=== PATIENT | female | born 1965 | race Caucasian/White ===

== ENCOUNTER 2019-08-08 15:53 | Outpatient (CLI) | payer MEDICARE, SELFPAY ==
--- NOTE | ~2019-08-08 | MM_ITS ---
EXAMINATION: MM screening larry BI w jakob HISTORY: Screening mammogram TECHNIQUE: Craniocaudal and mediolateral oblique 3-D tomosynthesis images were obtained and synthetic 2-D images were generated. CAD analysis was submitted and interpreted. COMPARISON: 06/15/2018 diagnostic right digital mammogram 06/03/2018 bilateral digital screening mammogram 06/04/2017 diagnostic right digital mammogram and limited right breast ultrasound 05/11/2017, 04/18/2016 bilateral digital screening mammogram examinations BREAST PARENCHYMAL COMPOSITION: There are scattered areas of fibroglandular density. FINDINGS: Stable circumscribed benign-appearing intramammary lymph node, upper outer left breast. The re is no evidence of suspicious mass, calcification, or architectural distortion to suggest malignanc y in either breast. There has been no suspicious interval change. IMPRESSION: 1. No mammographic evidence of malignancy. 2. Recommend routine screening mammography in one year. BI-RADS Category 2: Benign finding(s). Reviewed, dictated and finalized at location A.
== END 2019-08-08 15:54 | disposition home or self-care (01) ==
PROVIDERS: PCP Internal Medicine; Visit Provider Advanced Practice Midwife
DX: Z12.31 Encounter for screening mammogram for malignant neoplasm of breast (principal)
CPT/HCPCS: 77063; 77067

== ENCOUNTER 2019-08-15 14:06 | Outpatient (CLI) | payer MEDICARE, SELFPAY ==
--- NOTE | ~2019-08-15 | DEXA_ITS ---
BMD(1) Young-Adult(2) Age-Matched(3) Region (g/cm2) T-score Z-score WHO Classification L1 1.003 -1.1 -0.7 Osteopenia L2 1.095 -0.9 -0.5 Normal L3 1.129 -0.7 -0.3 Normal L4 1.157 -0.5 -0.1 Normal L1-L4 1.103 -0.7 -0.3 Normal Trend: L1-L4 Change vs Change vs Measured Age BMD(1) Baseline Previous Date (years) (g/cm2) (%) (%) 08/15/2019 [age] 1.103 baseline - 1 - Statistically 68% of repeat scans fall within 1SD (+- 0.010 g/cm2 for AP Spine L1-L4) 2 - [place] (Combined NHANES (ages 20-30) / Duxter (ages 20-40)) AP Spine Reference Population (v112) 3 - Matched for Age, Weight (females 25-100 kg), Ethnic 11 - World Health Organization - Definition of Osteoporosis and Osteopenia for Women: Normal = T-score at or above -1.0 SD; Osteopenia = T-score between -1.0 and -2.5 SD; Osteoporosis = T-score at or below -2.5 SD; (WHO definitions only apply when a young healthy Women reference database is used to determine T-scores.) Printed: 08/15/2019 2:46:49 PM (13.60)76:3.00:50.00:12.0 0.00:10.56 0.60x1.05 20.8:%Fat=32.9% 0.00:0.00 0.00:0.00 Filename: [email or web address] Scan Mode: Standard;OneScan 37.0 HearMeOut [id number] BMD(1) Young-Adult(2,7) Age-Matched(3) Region (g/cm2) T-score Z-score WHO Classification Neck Left 0.816 -1.6 -0.8 Osteopenia Right 0.803 -1.7 -0.9 Osteopenia Mean 0.809 -1.6 -0.9 Osteopenia Difference 0.013 0.1 0.1 - Total Left 0.887 -1.0 -0.6 Normal Right 0.849 -1.3 -0.9 Osteopenia Mean 0.868 -1.1 -0.7 Osteopenia Difference 0.038 0.3 0.3 - Hip Drew Length Comparison (mm) (Right = 113.5 mm) (Mean = 110.0 mm) (Left = 116.3 mm) Trend: Total Mean Change vs Change vs Measured Age BMD(1) Baseline Previous Date (years) (g/cm2) (%) (%) 08/15/2019 54.2 0.868 baseline - 1 - Statistically 68% of repeat scans fall within 1SD (+- 0.010 g/cm2 for DualFemur Total) 2 - [place] (Combined NHANES (ages 20-30) / [place]uxter (ages 20-40)) Femur Reference Population (v112) 3 - Matched for Age, Weight (females 25-100 kg), Ethnic 7 - DualFemur Total T-score difference is 0.3. Asymmetry is None. 11 - World Health Organization - Definition of Osteoporosis and Osteopenia for Women: Normal = T-score at or above -1.0 SD; Osteopenia = T-score between -1.0 and -2.5 SD; Osteoporosis = T-score at or below -2.5 SD; (WHO definitions only apply when a young healthy Women reference database is used to determine T-scores.) Printed: 08/15/2019 2:46:49 PM (13.60); Filename: [email or web address].dfx; Right Femur; 17.9:%Fat=33.7%; Neck Angle (deg)= 48; Scan Mode: Standard 37.0 uGy; Left Femur; 18.6:%Fat=35.4%; Neck Angle (deg)= 55; Scan Mode: Standard 37.0 uGy Ads-Fi [id number] Dear Melba Garcia, Your patient Anuja Lowry completed a BMD test on 08/15/2019 using the [employer] DXA System (analysis version: 13.60) manufactured by [employer]. The following summarizes the results of our evaluation. PATIENT BIOGRAPHICAL: Name: Anuja Lowry Date: 1965 Height: 68.0 in. Gender: Female
== END 2019-08-15 14:07 | disposition home or self-care (01) ==
LOC: CHSIMG 14:08
PROVIDERS: PCP Internal Medicine; Visit Provider Internal Medicine
DX: M81.0 Age-related osteoporosis without current pathological fracture (principal)
CPT/HCPCS: 77080

== ENCOUNTER → 2019-08-23 11:58 | Outpatient (CLI) | payer MEDICARE, OTHER, SELFPAY ==
--- NOTE | ~2019-08-23 | MR_ITS ---
EXAMINATION: MR brain/brain stem wo/w con DATE: 08/23/2019 13:45 INDICATION: Multiple sclerosis. TECHNIQUE: Magnetic resonance imaging (MRI) of the brain and brainstem was performed without and with 15 mL MultiHance intravenous contrast. Sequences included sagittal and axial T1-weighted FLAIR, axia l T1-weighted FSE, axial diffusion-weighted FS EPI, sagittal T2-weighted FLAIR, axial T2*-weighted GR E, axial T2-weighted FLAIR Propeller, and axial T2-weighted Propeller. Postcontrast sequences include d axial, coronal, and sagittal T1-weighted FSE. Apparent diffusion coefficient (ADC) maps were create d. COMPARISON: Brain MRI 07/23/2011 FINDINGS: There are approximately 15-20 total lesions of increased T2-weighted signal intensity in th e brain. Of these lesions, approximately 2 are periventricular, 2 are juxtacortical, and none are inf ratentorial. None of the lesions enhance. There is no acute ischemic infarct or intracranial hemorrha ge. The ventricles are normal in size. The paranasal sinuses are clear. The orbits are normal. The ma stoid air cells are normal. IMPRESSION: 1. Worsened mild cerebral white matter disease, which may be chronic small vessel ischemic disease an d/or multiple sclerosis. Reviewed, dictated and finalized at location A. IMPRESSION: 1. Worsened mild cerebral white matter disease, which may be chronic small vess el ischemic disease and/or multiple sclerosis.
--- NOTE | ~2019-08-23 | MR_ITS ---
EXAMINATION: MR cervical spine wo/w con DATE: 08/23/2019 13:34 INDICATION: Multiple sclerosis. TECHNIQUE: Magnetic resonance imaging (MRI) of the cervical spine was performed without with 15 mL Mu ltiHance intravenous contrast. Sequences included sagittal and axial T2-weighted FSE, sagittal STIR F SE, and sagittal and axial T1-weighted FSE. Postcontrast sequences included sagittal and axial T1-chas ghted FS FSE. COMPARISON: None FINDINGS: Bone alignment is normal. Vertebral body heights are normal. There is mildly decreased disc height at C5-C6. The spinal cord signal intensity is normal. The following disc levels are specifica lly discussed: C2-C3: The disc does not extend beyond the endplate margin. There is no uncovertebral joint osteoarth ritis. There is mild bilateral facet joint osteoarthritis. There is no neural foraminal stenosis. The re is no central canal stenosis. C3-C4: The disc does not extend beyond the endplate margin. There is mild right uncovertebral joint o steoarthritis. There is mild right facet joint osteoarthritis. There is mild right neural foraminal s tenosis. There is no central canal stenosis. C4-C5: The disc does not extend beyond the endplate margin. There is no uncovertebral joint osteoarth ritis. There is mild bilateral facet joint osteoarthritis. There is no neural foraminal stenosis. The re is no central canal stenosis. C5-C6: The disc is bulging. There is mild left uncovertebral joint osteoarthritis. There is no facet joint osteoarthritis. There is mild left neural foraminal stenosis. There is mild central canal steno sis. C6-C7: The disc is bulging. There is mild bilateral uncovertebral joint osteoarthritis. There is mild bilateral facet joint osteoarthritis. There is mild bilateral neural foraminal stenosis. There is no central canal stenosis. C7-T1: The disc does not extend beyond the endplate margin. There is no uncovertebral joint osteoarth ritis. There is mild bilateral facet joint osteoarthritis. There is no neural foraminal stenosis. The re is no central canal stenosis. IMPRESSION: 1. Normal spinal cord. 2. Mild cervical spondylosis. Reviewed, dictated and finalized at location A.
[2019-08-23 12:40] LABS: Estimated Glomerular Filt Rate > 60
== END ==
DX: G35 Multiple sclerosis (principal); M47.812 Spondylosis without myelopathy or radiculopathy, cervical region; R90.82 White matter disease, unspecified
CPT/HCPCS: 36415; 70553; 72156; A9577

== ENCOUNTER 2020-06-16 08:15 | Outpatient (CLI) | payer MEDICARE, SELFPAY | END 2020-06-16 08:16 | disposition home or self-care (01) | LOC: CHSCOVIDVC 08:16 | PROVIDERS: PCP Internal Medicine | DX: Z23 Encounter for immunization (principal) | CPT/HCPCS: 0011A; 91301 ==

== ENCOUNTER 2020-07-14 08:15 | Outpatient (CLI) | payer MEDICARE, SELFPAY | END 2020-07-14 08:16 | disposition home or self-care (01) | LOC: CHSCOVIDVC 08:15 | PROVIDERS: PCP Internal Medicine | DX: Z23 Encounter for immunization (principal) | CPT/HCPCS: 0012A; 91301 ==

== ENCOUNTER 2020-11-13 10:13 | Outpatient (CLI) | payer MEDICARE, SELFPAY ==
--- NOTE | ~2020-11-13 | CT_ITS ---
EXAMINATION: CT chest abdomen pelvis w con EXAM DATE: 11/13/2020 10:43 INDICATION: Weight loss, diarrhea, chest pain. Intermittent chest tightness. TECHNIQUE: Spiral CT of the chest, abdomen and pelvis was performed following intravenous injection o f 100 mL Omnipaque 350. Axial, coronal and sagittal images chest, abdomen and pelvis were reviewed. Coronal maximum intensity pixel images of chest reviewed. The dose-length product (DLP) for this ex amination was 416.54 mGy-cm. The exposure was tailored according to patient size (auto mA exposure c ontrol), and iterative reconstruction (ASIR) was used as additional dose reduction technique. There is no prior study for comparison. FINDINGS: CHEST: Dependent subsegmental atelectasis. There are no pleural or pericardial effusions. Tracheo bronchial tree is patent. There is no mediastinal, hilar or axillary lymphadenopathy. There is no pneumothorax. Heart normal in size. No evidence of coronary arterial calcification. ABDOMEN PELVIS: The liver, spleen, adrenal glands and pancreas are unremarkable. Gallbladder is unre markable. No biliary obstruction. Portal and splenic veins are patent. Kidneys enhance symmetrical ly. There is no hydronephrosis. The uterus is not identified and has likely been surgically resect ed. The bladder is unremarkable. There is no retroperitoneal or pelvic lymphadenopathy. Small umb ilical fat-containing hernia. The appendix is normal. The stomach and small bowel are unremarkable. There is expected amount of c olonic stool. No free intraperitoneal gas. There are no osteoblastic or osteolytic lesions identi fied. Mild lumbar dextroscoliosis. IMPRESSION: 1. Bilateral subsegmental atelectasis. 2. Small umbilical fat-containing hernia. Reviewed, dictated and finalized at location A.
== END 2020-11-13 10:14 | disposition home or self-care (01) ==
LOC: CHSIMG 10:15
PROVIDERS: PCP Internal Medicine; Visit Provider Internal Medicine
DX: R63.4 Abnormal weight loss (principal); R07.9 Chest pain, unspecified; R19.7 Diarrhea, unspecified
CPT/HCPCS: 71260; 74177; Q9967

== ENCOUNTER 2020-11-24 08:27 | Outpatient (CLI) | payer MEDICARE, SELFPAY ==
--- NOTE | ~2020-11-24 | MR_ITS ---
EXAMINATION: MR cervical spine wo/w con EXAM DATE: 11/24/2020 10:25 INDICATION: Multiple sclerosis. TECHNIQUE: Multi-sequential, multiplanar MR images of the cervical spine were obtained without contra st. Axial T2, axial T2 MERGE sequence. Sagittal T1, T2, T2 fat saturation images also obtained. Axi al T1 weighted sequence. Patient was then injected with 12 mL Multihance intravenous contrast and re imaged. Postcontrast axial and sagittal T1-weighted fat saturation sequences were obtained. Compar sandra is made to prior examination from 08/23/2019. FINDINGS: The vertebral bodies are aligned in the AP dimension. Vertebral body and disc heights are well-maintained. The spinal cord signal intensity and intrinsic morphology is normal. Cervicomedullar y junction is normal in appearance. There are no suspicious marrow signal abnormalities. Paraspinal s oft tissue is unremarkable. There are no areas of abnormal enhancement on the post contrast images. Level by level evaluation: C2-C3: Disc does not extend beyond the endplate margin. Uncovertebral joint arthropathy: None. Facet joint arthropathy: Mild. Neural foraminal stenosis: No stenosis. Central canal stenosis: No stenosis. C3-C4: Disc does not extend beyond the endplate margin. Uncovertebral joint arthropathy: Mild bilateral. Facet joint arthropathy: Mild to moderate bilateral. Neural foraminal stenosis: Mild right. Central canal stenosis: No stenosis. C4-C5: Disc does not extend beyond the endplate margin. Uncovertebral joint arthropathy: None. Facet joint arthropathy: Mild to moderate bilateral. Neural foraminal stenosis: No stenosis. Central canal stenosis: No stenosis. C5-C6: There is a mild diffuse disc bulge. Uncovertebral joint arthropathy: Moderate left, mild to moderate right. Facet joint arthropathy: Mild to moderate bilateral. Neural foraminal stenosis: Mild to moderate left, mild right. Central canal stenosis: Mild. C6-C7: There is a mild diffuse disc bulge. Uncovertebral joint arthropathy: Moderate right, mild to moderate left. Facet joint arthropathy: Mild. Neural foraminal stenosis: Moderate left, mild to moderate right. Central canal stenosis: Mild. C7-T1: Disc does not extend beyond the endplate margin. Uncovertebral joint arthropathy: Mild bilateral. Facet joint arthropathy: Mild bilateral. Neural foraminal stenosis: No stenosis. Central canal stenosis: No stenosis. IMPRESSION: 1. Mild to moderate cervical spondylosis. 2. Normal cervical spinal cord signal. Reviewed, dictated and finalized at location A.
--- NOTE | ~2020-11-24 | MR_ITS ---
EXAMINATION: MR thoracic spine wo/w con EXAM DATE: 11/24/2020 10:24 INDICATION: Multiple sclerosis. TECHNIQUE: Multi-sequential, multiplanar MR images of the thoracic spine were obtained without contra st. Sagittal T1, T2, T2 fat saturation, axial T2 weighted images reviewed. Axial T1 weighted sequenc e. Patient was then injected with 12 mL Multihance intravenous contrast and reimaged. Postcontrast axial and sagittal T1-weighted fat saturation sequences were obtained. There is no prior study for c omparison. FINDINGS: The spinal cord signal intensity and intrinsic morphology is normal. The vertebral bodies a re aligned in the AP dimension. Vertebral body and disc heights are well-maintained. There are scatte red focal signal abnormalities consistent with hemangiomata, otherwise without focal suspicious marro w signal abnormalities. Mild thoracic scoliosis. Paraspinal soft tissue is unremarkable. Mild thoraci c facet arthropathy. IMPRESSION: 1. Normal thoracic cord signal. 2. Mild scoliosis and facet arthropathy. Reviewed, dictated and finalized at location A.
--- NOTE | ~2020-11-24 | MR_ITS ---
EXAMINATION: MR brain/brain stem wo/w con EXAM DATE: 11/24/2020 10:25 INDICATION: Multiple sclerosis. TECHNIQUE: Magnetic resonance imaging (MRI) of the brain/brain stem obtained without contrast. Sagit yaya T1, axial diffusion, gradient echo (T2*), T1, T2, FLAIR sequences obtained. Patient was then inj ected with 12 cc intravenous Multihance contrast. Axial and coronal postcontrast T1 weighted sequence s obtained. Comparison is made to prior examination from 08/23/2019. FINDINGS: Again there are approximately 20 scattered periventricular and subcortical T2/FLAIR hyperin tensities, a non-specific finding with differential diagnosis including chronic small vessel ischemic disease (especially if the patient has cardiovascular risk factors), migraine headaches, demyelinati ng disease such as multiple sclerosis or acute disseminated encephalomyelitis (ADEM), vasculopathy, l yme's disease or reactive astrocytosis (gliosis) secondary to nonspecific etiology. These appear slig htly more pronounced than on prior study but not increased in number. No infratentorial signal abnorm alities. There are no areas of restricted diffusion to suggest acute infarction. There is no acute hemorrhage seen on the T2*, a hemosiderin sensitive sequence. No intraparenchymal brain mass. The ventricles a re normal in size. There are no extra-axial collections. Flow voids are seen in the cerebral arteri es on the T2-weighted sequences consistent with their expected patency. The orbits are unremarkable. Soft tissue is unremarkable. IMPRESSION: Scattered nonspecific white matter signal abnormalities, could be microangiopathy and/or multiple sclerosis, slightly more conspicuous but no change in number. No acute findings. Reviewed, dictated and finalized at location A. IMPRESSION: Scattered nonspecific white matter signal abnormalities, could be m icroangiopathy and/or multiple sclerosis, slightly more conspicuous but no mcfarland ge in number. No acute findings.
== END 2020-11-24 08:28 | disposition home or self-care (01) ==
LOC: CHSIMG 08:29
PROVIDERS: PCP Internal Medicine; Visit Provider Psychiatry & Neurology Neurology
DX: G35 Multiple sclerosis (principal)
CPT/HCPCS: 70553; 72156; 72157; A9577

== ENCOUNTER 2021-03-14 00:21 | Day surgery (SDC) | payer MEDICARE, SELFPAY ==
[2021-03-06 12:54] VITALS: BMI 25.4
[2021-03-14 06:44] VITALS: BP 108/71; PULSE 100; RESP 18; TEMP 36.4; O2SAT 100
[2021-03-14] MEDS: LACTATED RINGERS 1,000 ML 150 ML IV CONT (06:56)
--- NOTE | 2021-03-14 07:45 | WPDANESEPPF ---
Anes - Initial Pre Proc Eval Procedure: Operation Date: 03/14/21 08:00 Proposed Procedures p Esophagogastroduodenoscopy & Colonoscopy - Titus Arellano DO Date/Time: 03/14/21 07:45 Surgeon: Titus Arellano DO Pre Op Diagnosis: Positive FIT test Patient Data Age: 55 Gender: F Height: 1.73 m Weight: 64 kg Last Vital Signs Temp 97.6 F 03/14/21 06:44 Pulse 100 03/14/21 06:44 Resp 18 03/14/21 06:44 BP 108/71 03/14/21 06:44 Pulse Ox 100 03/14/21 06:44 Allergies Allergy/AdvReac Type Severity Reaction Status Date / Time erythromycin base Allergy Severe NAUSEA AND Verified 03/14/21 06:43 VOMITING Penicillins Allergy Severe RASH AND Verified 03/14/21 06:43 SWELLING Sulfa (Sulfonamide Allergy Swelling Verified 03/14/21 06:43 Antibiotics) Home Medications Medication Instructions Recorded Confirmed Type buspirone 15 mg PO BID 03/06/21 03/06/21 History diphenoxylate-atropine [Lomotil] 1 tablet PO TID PRN 03/06/21 03/06/21 History duloxetine 60 mg PO DAILY 03/06/21 03/06/21 History siponimod [Mayzent] 1 mg PO DAILY 03/06/21 03/06/21 History topiramate 100 mg PO DAILY 03/06/21 03/06/21 History Patient hx anesthesia problems: none Family hx anesthesia problems: none Results Review: All pre-operative results and documents have been reviewed as part of the pre-operative evaluation. [facility] Social History Social History Smoking packs per day: 1 Smoking cigarettes per day: 20.0 Smoking status: Current every day smoker Tobacco type: cigarettes Alcohol intake: never Substance use: current Substance use type: marijuana Other substance usage details: Mary russell nightly Living arrangements: with family Spiritual care concerns: No Anes - Eval Final PreProcedure Day of Procedure 03/14/21 07:45 Patient weight: normal Heart: regular rate and rhythm Lungs: clear to auscultation Airway: Mallampati scale class II Neurological: alert and oriented Last oral intake: >/= 8 hours ASA classification: III Emergent: no Anesthetic plan: proceed Anesthesia type and monitoring: general GIVS and standard monitoring Results Review: All pre-operative results and documents have been reviewed as part of the pre-operative evaluation. Informed Consent: The patient's anesthetic plan and its attendant risks and benefits were discussed with the patient/family/POA. Questions were solicited and answers provided to the satisfaction of the patient/family/POA.
--- NOTE | 2021-03-14 07:51 | PM.IMHP ---
H&P: HPI History of Present Illness Date/Time: 03/14/21 07:51 Chief Complaint: occult positive stool Narrative: this is a 55-year-old woman who presents for EGD and colonoscopy. She recently had an at home test which showed evidence of blood in her stool. She denies being able to identify hematochezia or melena. She denies any significant heartburn or acid reflux. She had a colonoscopy 9 years ago which she states was normal. She denies any family history of colon cancer. Review of Systems Review of Systems: All systems reviewed & are unremarkable except as noted in HPI and below Constitutional: Constitutional: Denies chills, Denies fever(s), Denies headache(s) and Denies weight loss Eyes: Eyes: Denies change in vision ENT: Denies dizziness, Denies headache(s), Denies neck mass and Denies throat swelling Cardiovascular: Cardiovascular: Denies chest pain, Denies lightheadedness and Denies dyspnea Respiratory: Respiratory: Denies cough, Denies dyspnea and Denies wheezing Gastrointestinal: Gastrointestinal: Denies abdominal pain, Denies change in bowel habits, Denies nausea and Denies vomiting Genitourinary: Genitourinary: Denies hematuria and Denies dysuria Musculoskeletal: Musculoskeletal: Reports as per HPI Integumentary/Breasts: Skin/Breast: Reports as per HPI Neurologic: Denies dizziness and Denies headache(s) Allergic/Immunologic: Allergic/Immunologic: Denies throat swelling and Denies wheezing PMFSH Social History Social History Smoking packs per day: 1 Smoking cigarettes per day: 20.0 Smoking status: Current every day smoker Tobacco type: cigarettes Alcohol intake: never Substance use: current Substance use type: marijuana Other substance usage details: Brandycammie russell nightly Living arrangements: with family Spiritual care concerns: No Meds Home Medications and Allergies Home Medications Medication Instructions Recorded Confirmed Type buspirone 15 mg PO BID 03/06/21 03/06/21 History diphenoxylate-atropine [Lomotil] 1 tablet PO TID PRN 03/06/21 03/06/21 History duloxetine 60 mg PO DAILY 03/06/21 03/06/21 History siponimod [Mayzent] 1 mg PO DAILY 03/06/21 03/06/21 History topiramate 100 mg PO DAILY 03/06/21 03/06/21 History Allergies Allergy/AdvReac Type Severity Reaction Status Date / Time erythromycin base Allergy Severe NAUSEA AND Verified 03/14/21 06:43 VOMITING Penicillins Allergy Severe RASH AND Verified 03/14/21 06:43 SWELLING Sulfa (Sulfonamide Allergy Swelling Verified 03/14/21 06:43 Antibiotics) Vital Signs Vital Signs - 24 hr 03/14/21 06:44 Temperature 36.4 C Pulse Rate 100 Respiratory Rate 18 Blood Pressure 108/71 Pulse Oximetry 100 Exam Const: General: no acute distress and alert Orientation/consciousness: patient oriented x3 HENMT: Head: normocephalic and atraumatic Ears: hearing grossly normal bilaterally General nose exam: Normal nares present Mouth: Yes Normal oral and palatal mucosa present Eyes: Periorbital: periorbital findings normal Sclera: sclerae normal EOM: EOMs intact bilaterally Neck: Neck: normal visual inspection, no lymphadenopathy and trachea midline Chest: Chest palpation & inspection: normal inspection of the chest Resp: Effort & Inspection: normal respiratory effort Auscultation: clear to auscultation bilaterally Cardio: Jugular venous distension: no JVD Rate: regular rate Rhythm: regular rhythm Heart sounds: S1 normal heart sound present and S2 normal heart sound present Peripheral pulses: Peripheral pulses 2+ throughout GI: Inspection: normal to inspection GI Palp: Yes Soft to palpation, No Tenderness to palpation present (GI), No Guarding due to palpation present (GI) and No Rebound tenderness present Percussion: Yes normal to percussion Auscultation: normal bowel sounds : General: Yes no CVA tenderness Back/Spine/Pelvis: Back: no CVA tenderness Neuro: General: patient orient
[2021-03-14] MEDS: BENZOCAINE (*SP) 60 ML SPRAY CAN (HURRICAINE) 1 SPRAY MUCOUS MEM (08:03)
--- NOTE | 2021-03-14 08:45 | SUR.OPER ---
EGD start 804 end 810, COLON start 818 end 841.
[2021-03-14 08:48] VITALS: BP 95/61; PULSE 71; RESP 19; O2SAT 99
[2021-03-14 08:58] VITALS: BP 124/61; PULSE 72; RESP 18; O2SAT 99
[2021-03-14 09:08] VITALS: BP 112/66; PULSE 69; RESP 15; O2SAT 100
== END 2021-03-14 09:17 | disposition home or self-care (01) ==
PROVIDERS: PCP Internal Medicine; Visit Provider Surgery
PROC: 0DJ08ZZ Inspection of Upper Intestinal Tract, Via Natural or Artificial Opening Endoscopic (ICD-10-PCS; CPT 43235; principal; 2021-03-14 08:00)
DX: K25.3 Acute gastric ulcer without hemorrhage or perforation (principal); R19.5 Other fecal abnormalities; F17.210 Nicotine dependence, cigarettes, uncomplicated; F12.90 Cannabis use, unspecified, uncomplicated
CPT/HCPCS: 45378; 43239; 88305; J2704; J7120

== ENCOUNTER → 2021-05-17 08:51 | Outpatient (CLI) | payer MEDICARE, SELFPAY ==
--- NOTE | ~2021-05-17 | MMUS_ITS ---
EXAMINATION: MM diagnostic larry BI w jakob, US breast LT complete HISTORY: Diffuse left breast pain TECHNIQUE: Craniocaudal, mediolateral, and mediolateral oblique 3-D tomosynthesis images of the breas ts were performed and synthetic 2-D images were generated. CAD analysis was submitted and interpreted . High resolution complete left breast ultrasound was performed including all four quadrants and the subareolar breast. COMPARISON: 08/08/2019, 06/15/2018, 06/03/2018 BREAST PARENCHYMAL COMPOSITION: There are scattered areas of fibroglandular density. FINDINGS: MAMMOGRAPHIC FINDINGS: There is a stable 4 mm mass at the 3:00 location of the left breast, consistent with a benign finding . There is no suspicious mass, calcification, or architectural distortion in either breast to sugges t malignancy. There has been no suspicious interval change. ULTRASOUND: There is no evidence of focal abnormal solid or cystic mass in the vicinity of the patient's left tia ast pain. There is a 6 mm cyst at the 3:00 location and a 4 mm cyst near the nipple. IMPRESSION: 1. No specific mammographic or sonographic correlate is identified for the patient's reported left br east pain Further evaluation at this time should be based on clinical assessment. Continued follow-up physical examination is recommended. 2. Recommend routine screening mammography in one year. BI-RADS Category 2: Benign finding(s). Reviewed, dictated and finalized at location A. IMPRESSION: 1. No specific mammographic or sonographic correlate is identified for the belkis ent's reported left breast pain Further evaluation at this time should be based on clinical assessment. Continued follow-up physical examination is recommende d. 2. Recommend routine screening mammography in one year. BI-RADS Category 2: Benign finding(s).
== END ==
PROVIDERS: PCP Internal Medicine; Visit Provider Nurse Practitioner Obstetrics & Gynecology
DX: N64.4 Mastodynia (principal); Z80.3 Family history of malignant neoplasm of breast
CPT/HCPCS: 76641; 77062; 77066; G0279

== ENCOUNTER 2021-09-03 11:26 | Outpatient (CLI) | payer MEDICARE, SELFPAY ==
[2021-09-03 12:17] LABS: SARS-CoV-2 RNA PCR Positive (Negative)
== END 2021-09-03 11:27 | disposition home or self-care (01) ==
LOC: CHSLAB 11:30
PROVIDERS: PCP Internal Medicine; Visit Provider Nurse Practitioner Family
DX: U07.1 COVID-19 (principal)
CPT/HCPCS: C9803; U0003; U0005

== ENCOUNTER 2021-09-04 09:01 | Outpatient (CLI) | payer MEDICARE, SELFPAY ==
[2021-09-04] MEDS: FAMOTIDINE 20 MG TABLET PO (09:29)
[2021-09-04] MEDS: BEBTELOVIMAB 175 MG/2 ML VIAL IV PUSH (09:29)
[2021-09-04] MEDS: diphenhydrAMINE HCl CAP 25 MG CAPSULE PO (09:29)
[2021-09-04] MEDS: ACETAMINOPHEN 325 MG TABLET 650 MG PO (09:29)
--- NOTE | 2021-09-04 09:36 | PC.NURSE ---
Pt to room 211 amb. A&Ox3. Has no questions or complaints. Oriented to room. Call de la cruz in reach. Plan of care explained. Consent read and signed. Reminded to call with needs.
--- NOTE | 2021-09-04 10:00 | PC.NURSE ---
Pt tolerated medication well. Has no questions or complaints. Discharge to home amb per self.
== END 2021-09-04 09:02 | disposition home or self-care (01) ==
LOC: CHSTREATRM 09:05
PROVIDERS: PCP Internal Medicine; Visit Provider Nurse Practitioner Family
DX: U07.1 COVID-19 (principal); D84.9 Immunodeficiency, unspecified
CPT/HCPCS: A9270; M0222; Q0222

== ENCOUNTER 2022-01-21 13:50 | Outpatient (CLI) | payer MEDICARE, SELFPAY ==
--- NOTE | ~2022-01-21 | XR_ITS ---
EXAM: XR wrist RT min 3V DATE: 01/21/2022 14:10 HISTORY: FALL X2MO AGO,INJURY TO DISTAL ULNA . COMPARISON: None available. FINDINGS: Normal mineralization. No fracture. 3 mm scapholunate interval and relative widening when compared to other intercarpal articulations. Capitolunate angle greater than 30 degrees. Scapholunate angle is borderline low, measuring 33 degrees. No lytic or blastic lesion. Joint spaces are maintain ed. No erosion or periosteal change. Soft tissues within normal limits. IMPRESSION: Possible scapholunate ligament disruption. Volar intercalated segmental instability, whic h may also indicate the presence of the lunatotriquetral ligament disruption. Consider MR arthrograph y of the wrist for further evaluation. Reviewed, dictated and finalized at location K. DRY ROOM WORKER IMPRESSION: Possible scapholunate ligament disruption. Volar intercalated segme ntal instability, which may also indicate the presence of the lunatotriquetral ligament disruption. Consider MR arthrography of the wrist for further evaluati on.
== END 2022-01-21 13:51 | disposition home or self-care (01) ==
LOC: CHSIMG 13:54
PROVIDERS: PCP Internal Medicine; Visit Provider Internal Medicine
DX: S69.91XA Unspecified injury of right wrist, hand and finger(s), initial encounter (principal); M81.0 Age-related osteoporosis without current pathological fracture
CPT/HCPCS: 73110

== ENCOUNTER 2022-01-25 10:22 | Outpatient (CLI) | payer MEDICARE, SELFPAY ==
--- NOTE | ~2022-01-25 | MR_ITS ---
MRI of the right wrist Technique: Coronal T1 weighted and proton density fat sat images, and axial and sagittal proton-densi ty and proton-density fat-sat images were acquired. Clinical History: Pain Findings: Scapholunate ligament is intact, and there is no widening of the scapholunate interval. Jose G otriquetral ligament is intact. There are degenerative changes of the ulnar aspect of the TFCC withou t definite tear. No fracture or dislocation identified. There is a ganglion cyst at the ulnar aspect of the wrist, at the level of the TFCC, probably extending from the triquetral pisiform joint (series 4 images 7 and 9 ). This ganglion cyst measures up to approximately 1.1 x 0.7 x 1.5 cm. Flexor and extensor tendons are unremarkable otherwise. No tenosynovitis evident. No other soft tissu e mass or fluid collection seen. IMPRESSION: Ganglion cyst at the ulnar aspect of the wrist measuring approximately 1.1 x 0.7 x 1.5 cm, probably e xtending from the triquetral pisiform joint. Mild degenerative changes of the TFCC. Reviewed, dictated and finalized at [facility]. RETTE LIGHTER REPAIRER IMPRESSION: Ganglion cyst at the ulnar aspect of the wrist measuring approximately 1.1 x 0. 7 x 1.5 cm, probably extending from the triquetral pisiform joint. Mild degenerative changes of the TFCC.
== END 2022-01-25 10:23 | disposition home or self-care (01) ==
LOC: CHSIMG 10:24
PROVIDERS: PCP Internal Medicine; Visit Provider Internal Medicine
DX: M25.531 Pain in right wrist (principal)
CPT/HCPCS: 73221

== ENCOUNTER 2022-01-27 12:13 | Outpatient (CLI) | payer MEDICARE, SELFPAY ==
--- NOTE | ~2022-01-27 | CT_ITS ---
EXAMINATION: CT lung screening DATE: 01/27/2022 12:50 INDICATION: HX OF NICOTINE DEPENDENCE,NO COMPLAINTS TECHNIQUE: Computed tomography (CT) of the chest was performed without intravenous contrast. Addition al 3D reconstructions utilizing coronal maximum intensity projection (MIP) were performed. Automated exposure control and iterative reconstruction technique were employed. The dose-length product was 66 .83 mGy-cm. COMPARISON: 11/13/2020 FINDINGS: Mild discoid atelectasis in bilateral lower lobes. No suspicious pulmonary nodules, pneumonia, pulmon beltran edema or pleural effusion. Heart size is normal. No pericardial effusion. Thoracic aorta is rosi l in caliber. No pathologically enlarged thoracic lymphadenopathy. Mild thoracic spondylosis. IMPRESSION: 1. Lung-RADS category 1: Negative. Continue annual screening with noncontrast low-dose chest CT in 12 months. Reviewed, dictated and finalized at location A. AND NUTRITION SERVICES SUPERVISOR IMPRESSION: 1. Lung-RADS category 1: Negative. Continue annual screening with noncontrast l ow-dose chest CT in 12 months.
--- NOTE | ~2022-01-27 | DEXA_ITS ---
Bone Density Report Name: SOFÍA CASTLE Age: 56 Sex: Female Ethnicity: White Date of : 1965 Indication: postmenopausal; screening for osteoporosis; height loss; inflammatory bowel disease; prior fracture; hysterectomy; Referring Provider: Melba Garcia Study: Bone densitometry was performed. Exam Date: January 27, 2022 Accession number: [id number] Bone Density: Region BMD T-score Z-score Classification AP Spine(L1-L4) 0.924 -1.1 0.1 Osteopenia Femoral Neck (Left) 0.648 -1.8 -0.6 Osteopenia Total Hip (Left) 0.824 -1.0 -0.1 Normal Femoral Neck (Right) 0.642 -1.9 -0.7 Osteopenia Total Hip (Right) 0.795 -1.2 -0.4 Osteopenia Femoral Neck Mean 0.645 -1.8 -0.7 Osteopenia Total Hip Mean 0.809 -1.1 -0.3 Osteopenia World Health Organization criteria for BMD impression classify patients as: Normal (T-score at or above -1.0), Osteopenia (T-score between -1.0 and -2.5), or Osteoporosis (T-score at or below -2.5). 10-year Fracture Risk(1): Major Osteoporotic Fracture 14% Hip Fracture 2.7% Reported Risk Factors: [place] (), Neck BMD=0.642, BMI=21.9, previous fracture, smoking (1) FRAX(R) Version 3.08. Fracture probability calculated for an untreated patient. Fracture probability may be lower if the patient has received treatment. Clinical Information Provided by Patient: Has had a low trauma fracture Smokes Has used the following medications: Vitamin D, Calcium, multi vit Has the following medical conditions: Inflammatory bowel diseases, Hysterectomy Patient maximum height was 69 Menopause Age: 43 No regular weight bearing exercise Drinks caffeinated beverages Onset of menses at age 11 Number of children 2 Impression: The patient has low bone mass, based on the Right Femoral Neck T-score. The patient has risk factors, including: smoking, previous fracture. Discussion: BONE DENSITY IS LOW AT ONE OR MORE SKELETAL SITES. This patient's lowest T-score is low at one or more skeletal sites. It meets the World Health Organization's (WHO) criteria for ?low bone mass? (T-score between -1.0 and -2.5). The patient's 10-year risk of fracture as calculated by FRAX is less than the threshold where pharmacological therapy is recommended by the National Osteoporosis Foundation (NOF). However, all treatment decisions require clinical judgment and consideration of individual patient factors, including patient preferences, comorbidities, previous drug use, risk factors not captured in the FRAX model (e.g., frailty, falls, vitamin D deficiency, increased bone turnover, interval significant decline in bone density) and possible under or overestimation of fracture risk by FRAX. The patient should follow a healthful lifestyle (good nutrition with adequate calcium and vitami
== END 2022-01-27 12:14 | disposition home or self-care (01) ==
LOC: CHSIMG 12:14
PROVIDERS: PCP Internal Medicine; Visit Provider Internal Medicine
DX: Z12.2 Encounter for screening for malignant neoplasm of respiratory organs (principal); Z87.891 Personal history of nicotine dependence; M81.0 Age-related osteoporosis without current pathological fracture; S69.91XA Unspecified injury of right wrist, hand and finger(s), initial encounter
CPT/HCPCS: 71271; 77080

== ENCOUNTER 2022-05-10 13:05 | Outpatient (CLI) | payer MEDICARE, SELFPAY ==
--- NOTE | ~2022-05-10 | MR_ITS ---
EXAMINATION: MR brain/brain stem wo/w con DATE: 05/10/2022 14:39 INDICATION: Multiple sclerosis. New event. Dizziness. TECHNIQUE: Magnetic resonance imaging (MRI) of the brain and brainstem was performed without and with 13 mL MultiHance intravenous contrast. COMPARISON: Brain MRI 11/24/2020 FINDINGS: There are at least 20 total lesions of increased T2-weighted signal intensity in the brain. Of these lesions, multiple are periventricular, multiple are juxtacortical, and none are infratentor ial. None of the lesions enhance. There is no acute ischemic infarct or intracranial hemorrhage. The ventricles are normal in size. There is a mucous retention cyst in right maxillary sinus. The orbits are normal. The mastoid air cells are normal. IMPRESSION: 1. Stable mild cerebral white matter disease, consistent with chronic small vessel ischemic disease a nd/or multiple sclerosis. Reviewed, dictated and finalized at location A. IMPRESSION: 1. Stable mild cerebral white matter disease, consistent with chronic small ves elena ischemic disease and/or multiple sclerosis.
== END 2022-05-10 13:06 | disposition home or self-care (01) ==
PROVIDERS: PCP Internal Medicine; Visit Provider Psychiatry & Neurology Neurology
DX: G35 Multiple sclerosis (principal)
CPT/HCPCS: 70553; A9577

== ENCOUNTER 2022-07-01 12:58 | Outpatient (CLI) | payer MEDICARE, SELFPAY | END 2022-07-01 12:59 | disposition home or self-care (01) | LOC: ANHAUDIO 12:58 | PROVIDERS: PCP Internal Medicine; Visit Provider Otolaryngology | DX: H81.01 Meniere's disease, right ear (principal); H93.19 Tinnitus, unspecified ear; R26.89 Other abnormalities of gait and mobility; H90.41 Sensorineural hearing loss, unilateral, right ear, with unrestricted hearing on the contralateral side | CPT/HCPCS: 92557; 92567 ==

== ENCOUNTER → 2023-01-27 10:48 | Outpatient (CLI) | payer MEDICARE, SELFPAY ==
--- NOTE | ~2023-01-27 | CT_ITS ---
CT Scan of the Chest without Contrast: Clinical Indication: Lung cancer screening, personal history of nicotine dependence Technique: Contiguous sections were acquired throughout the chest without intravenous contrast. Dose reduction technique was used on this scan by utilizing automated exposure control and iterative recon struction technique. The dose-length product (DLP) was 46.22 mGy-cm. COMPARISON: 01/27/2022 Findings: There is no evidence of any significant mediastinal, hilar or axillary lymphadenopathy. The mediastin al soft tissues appear normal. There is no evidence of pleural or pericardial effusion. Stable linear scarring left lung base. No pulmonary nodule evident. Images through the upper abdomen reveal no abnormalities. Impression: Lung RADS 1: Negative. 12 month follow-up screening CT advised. Reviewed, dictated and finalized at location . STRIAL ROOFER Impression: Lung RADS 1: Negative. 12 month follow-up screening CT advised.
== END ==
PROVIDERS: PCP Internal Medicine; Visit Provider Internal Medicine
DX: Z12.2 Encounter for screening for malignant neoplasm of respiratory organs (principal); Z87.891 Personal history of nicotine dependence
CPT/HCPCS: 71271

== ENCOUNTER 2023-05-14 11:04 | Outpatient (CLI) | payer MEDICARE, SELFPAY ==
--- NOTE | ~2023-05-14 | XR_ITS ---
EXAM: XR thoracic spine 3V DATE: 05/14/2023 11:31 HISTORY: thoracic back pain . COMPARISON: MR thoracic spine 11/24/2020. FINDINGS: Decreased mineralization. Vertebral body alignment intact. Mild thoracic scoliosis. Verteb ral body heights preserved. No disc space narrowing. No traumatic malalignment or fracture. Visualize d lung parenchyma is clear. IMPRESSION: No acute osseous finding in the thoracic spine. Osteopenia. Mild scoliosis. Reviewed, dictated and finalized at location K. IMPRESSION: No acute osseous finding in the thoracic spine. Osteopenia. Mild sc oliosis.
== END 2023-05-14 11:05 ==
PROVIDERS: PCP Nurse Practitioner Family; Visit Provider Nurse Practitioner Family
DX: M41.9 Scoliosis, unspecified (principal); M85.80 Other specified disorders of bone density and structure, unspecified site
CPT/HCPCS: 72072

== ENCOUNTER 2023-07-29 15:44 | Outpatient (CLI) | payer MEDICARE, SELFPAY ==
--- NOTE | ~2023-07-29 | MM_ITS ---
EXAMINATION: MM screening larry BI w jakob HISTORY: Screening TECHNIQUE: Craniocaudal and mediolateral oblique 3-D tomosynthesis images were obtained and synthetic 2-D images were generated. CAD analysis was submitted and interpreted. COMPARISON: Comparison to multiple prior studies sequentially, with oldest reviewed study dated 02/2021. BREAST PARENCHYMAL COMPOSITION: Not dense: There are scattered areas of fibroglandular density. FINDINGS: There is no evidence of suspicious mass, calcification, or architectural distortion to sugg est malignancy in either breast. There has been no suspicious interval change. IMPRESSION: 1. No mammographic evidence of malignancy. 2. Recommend routine screening mammography in one year. BI-RADS Category 1: Negative Reviewed, dictated and finalized at location B.
== END 2023-07-29 15:45 | disposition home or self-care (01) ==
LOC: ANHIMG 15:48
PROVIDERS: PCP Nurse Practitioner Family; Visit Provider Nurse Practitioner Obstetrics & Gynecology
DX: Z12.31 Encounter for screening mammogram for malignant neoplasm of breast (principal)
CPT/HCPCS: 77063; 77067

== ENCOUNTER 2024-02-01 10:54 | Outpatient (CLI) | payer MEDICARE, SELFPAY ==
--- NOTE | ~2024-02-01 | XR_ITS ---
Right wrist Technique: PA, oblique, lateral, and ulnar deviation views were obtained. Clinical History: TFCC tear Findings: No acute fracture or dislocation is seen. Osseous alignment is anatomic. Joint spaces are p reserved. Soft tissues are unremarkable. Impression: Unremarkable right wrist radiographs. Reviewed, dictated and finalized at location . MILLING SUPERVISOR Impression: Unremarkable right wrist radiographs.
== END 2024-02-01 10:55 | disposition home or self-care (01) ==
PROVIDERS: PCP Internal Medicine; Visit Provider Plastic Surgery
DX: S63.591A Other specified sprain of right wrist, initial encounter (principal); M67.431 Ganglion, right wrist; M77.8 Other enthesopathies, not elsewhere classified
CPT/HCPCS: 73110

== ENCOUNTER 2024-03-14 12:26 | Outpatient (CLI) | payer MEDICARE, SELFPAY ==
--- NOTE | ~2024-03-14 | MR_ITS ---
EXAMINATION: MR wrist RT wo/w con DATE: 03/14/2024 13:38 INDICATION: Irregular fibrocartilage complex tear at the right wrist with ganglion cyst and tendiniti s. TECHNIQUE: Magnetic resonance imaging (MRI) of the right wrist was performed without intravenous cont rast. Sequences performed include axial PD-weighted FSE and PD-weighted FS FSE, coronal PD-weighted F S FSE and T1-weighted SE, and sagittal PD-weighted FS FSE and PD-weighted FSE and postcontrast axial, sagittal and coronal T1-weighted FS FSE . COMPARISON: Right wrist radiographs dated 02/01/2024 and wrist MR dated 01/25/2022 FINDINGS: Intrinsic ligaments: Mild partial tear of the central membranous component of the scapholunate ligament. The lunotriquetra l ligament is normal. Triangular fibrocartilage complex (TFCC): There is a full-thickness tear along the radial side of central fibrocartilaginous disc of the triang ular fibrocartilage complex, also involving the volar component of the radioulnar ligament. The fovea l and ulnar styloid attachments of the triangular fibrocartilage complex remain intact. The ulnar col lateral ligament, ulnotriquetral ligament and meniscal homologue are normal. Extensor wrist: There is a tear of the ulnar side of the extensor carpi ulnaris tendon substance sheath with partial subluxation of the extensor carpi ulnaris tendon across the ulnar rim of the ECU groove. Mild tendino swapnil without discrete tear at the extensor carpi ulnaris tendon centered at the level of the ulnar s tyloid process. Extensor tendons of the wrist are otherwise normal. No tenosynovitis. Flexor wrist: The flexor tendons of the wrist are normal. No abnormality in the carpal tunnel with normal median n erve. Guyon's canal: Guyon's canal including the ulnar nerve and artery are normal. Bones/other: Bone alignment is normal. There is normal. Is prominent subarticular cystlike change with surrounding marrow edema and non masslike enhancement at the distal articular surface of the ulna. Marrow signal is otherwise unremarkable. No fracture or pathologic marrow replacing process. Mild osteoarthritis a t the distal radioulnar, radioscaphoid, triscaphe first carpal metacarpal joints. 1.4 x 0.8 x 0.5 cm loculated fluid collection positioned volar to the ulnar styloid process which appears to represent e xtension of the pacer triquetral recess resulting roughly a ganglion cyst arising from the wrist join t and the region of the triangular fibrocartilage complex. IMPRESSION: 1. Tear of the central fibrocartilaginous disc and dorsal radioulnar ligament. 2. No significant change in a 1.4 x 0.8 x 0.5 cm ganglion cyst which appears to arise from the trapez ium triquetral recess. 3. Mild partial tear of the central component of the scapholunate ligament. 4. New likely degenerative subarticular cystlike changes and surrounding edema-like signal change at the distal ulna which is likely related to the overlying tear of the triangular fibrocartilage comple x. Reviewed, dictated and finalized at location [facility]. [facility] IMPRESSION: 1. Tear of the central fibrocartilaginous disc and dorsal radioulnar ligament. 2. No significant change in a 1.4 x 0.8 x 0.5 cm ganglion cyst which appears to arise from the trapezium triquetral recess. 3. Mild partial tear of the central component of the scapholunate ligament. 4. New likely degenerative subarticular cystlike changes and surrounding edema- like signal change at the distal ulna which is likely related to the overlying tear of the triangular fibrocartilage complex.
--- OUTSIDE RECORDS SUMMARY | 2024-03-14 13:02 | XMS_ITS | Encounter Summary ---
Author Organization [facility] Healthcare Address [address] [place] [address] Care Team Providers Care On Site Property Manager Name Role Phone Melba Garcia MD Primary Care Provider [phone] Reason for Visit * Diagnostic Imaging (Routine) - Closed Specialty Diagnoses / Procedures Referred By Kilo marion Referred To Contact Procedures Breast Imaging Diagnostic Outside Reference Yanira Maher NP Phone: tel: fax: Referral ID Status Reason Start Date Expiration Date Visits Re quested Visits Authorized [id number] Closed 06/03/2021 07/03/2022 1 1 Encounter Details Date Type Department Care Team (Late st Contact Info) Description 06/15/2018 Hospital Encounter [facility] [address] [place] [id number] Social History Tobacco Use Types Packs/Day Years Used Date Smoking Tobacco: Every Day Vaping Smokeless Tobacco: Current Alcohol Use Standard Drinks/Week Comments No 0 (1 standard drink = 0.6 oz pur e alcohol) Occassionally vapes Comments No Sex and Gender Information Value Date Recorded Sex Assigned at Not on file Legal Sex Female 9:40 AM CABLE REPAIRER Gender Identity Female 08/23/2019 6:30 PM CDT Sexual Orientation Straight 08/23/2019 6: 30 PM CDT documented as of this encounter Plan of Treatment Not on file documented as of this encounter Procedures Procedure Name Priority Date/Time Associated Diagnosis Comments BREAST IMAGING MG DIAGNOSTIC OUTSIDE REFERENCE Routine 06/15/2018 12:00 AM CDT documented in this encounter Results * Breast Imaging Diagnostic Outside Reference (06/15/2018 12:00 AM CDT) Impressions [facility] - 06/03/2021 11:15 AM CDT These images are for Reference purposes only and have not been reviewed by [facility]. ??There will be no report generated by a [facility] Radiologist. Narrative RAD_MAMMO_[facility] - 06/03/2021 11:15 AM CDT EXAMINATION: ??Images For Reference Purposes Only us Yanira Maher CORN PICKER IMG MAMMO PROCEDURES Fin al Result [facility] documented in this encounter Visit Diagnoses Not on filedocumented in this encounter Care Teams On Site Property Manager Relationship Specialty Start Date End Date Melba Garcia MD [address] [place] [address] PCP - General 04/24/08 documented as of this encounter
--- OUTSIDE RECORDS SUMMARY | 2024-03-14 13:02 | XMS_ITS | Encounter Summary ---
Author Organization [facility] Healthcare Address [address] [place] [address] Care Team Providers Care Candy Spreader Name Role Phone Melba Garcia MD Primary Care Provider [phone] Reason for Visit * Diagnostic Imaging (Routine) - Closed Specialty Diagnoses / Procedures Referred By Kilo marion Referred To Contact Procedures Breast Imaging Screening Outside Reference Yanira Maher NP Phone: tel: fax: Referral ID Status Reason Start Date Expiration Date Visits Re quested Visits Authorized [id number] Closed 06/03/2021 07/03/2022 1 1 Encounter Details Date Type Department Care Team (Late st Contact Info) Description 05/11/2017 Hospital Encounter [facility] [address] [place] [id number] Social History Tobacco Use Types Packs/Day Years Used Date Smoking Tobacco: Every Day Vaping Smokeless Tobacco: Current Alcohol Use Standard Drinks/Week Comments No 0 (1 standard drink = 0.6 oz pur e alcohol) Occassionally vapes Comments No Sex and Gender Information Value Date Recorded Sex Assigned at Not on file Legal Sex Female 9:40 AM BOXING 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 Gender Identity Female 08/23/2019 6:30 PM CDT Sexual Orientation Straight 08/23/2019 6: 30 PM CDT documented as of this encounter Plan of Treatment Not on file documented as of this encounter Procedures Procedure Name Priority Date/Time Associated Diagnosis Comments BREAST IMAGING MG SCREENING OUTSIDE REFERENCE Routine 05/11/2017 12:00 AM CDT documented in this encounter Results * Breast Imaging Screening Outside Reference (05/11/2017 12:00 AM CDT) Impressions [facility]MAMMO[facility] - 06/03/2021 11:16 AM CDT These images are for Reference purposes only and have not been reviewed by [facility]. ??There will be no report generated by a [facility] Radiologist. Narrative [facility]MO[facility] - 06/03/2021 11:16 AM CDT EXAMINATION: ??Images For Reference Purposes Only us Yanira Maher WOOD PLANER IMG MAMMO PROCEDURES Fin al Result [facility] documented in this encounter Visit Diagnoses Not on filedocumented in this encounter Care Teams Candy Spreader Relationship Specialty Start Date End Date Melba Garcia MD [address] [place] [address] PCP - General 04/24/08 documented as of this encounter
--- OUTSIDE RECORDS SUMMARY | 2024-03-14 13:02 | XMS_ITS | Encounter Summary ---
Author Organization [facility] Healthcare Address [address] [place] [address] Care Team Providers Care Suspender Maker Name Role Phone Melba Garcia MD Primary Care Provider [phone] Reason for Visit * Diagnostic Imaging (Routine) - Closed Specialty Diagnoses / Procedures Referred By Kilo marion Referred To Contact Procedures Breast Imaging Screening Outside Reference Yanira Maher NP Phone: tel: fax: Referral ID Status Reason Start Date Expiration Date Visits Re quested Visits Authorized [id number] Closed 06/03/2021 07/03/2022 1 1 Encounter Details Date Type Department Care Team (Late st Contact Info) Description 08/08/2019 Hospital Encounter [facility] [address] [place] [phone] Social History Tobacco Use Types Packs/Day Years Used Date Smoking Tobacco: Every Day Vaping Smokeless Tobacco: Current Alcohol Use Standard Drinks/Week Comments No 0 (1 standard drink = 0.6 oz pur e alcohol) Occassionally vapes Comments No Sex and Gender Information Value Date Recorded Sex Assigned at Not on file Legal Sex Female 9:40 AM 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 JOB TITLES Gender Identity Female 08/23/2019 6:30 PM CDT Sexual Orientation Straight 08/23/2019 6: 30 PM CDT documented as of this encounter Plan of Treatment Not on file documented as of this encounter Procedures Procedure Name Priority Date/Time Associated Diagnosis Comments BREAST IMAGING MG SCREENING OUTSIDE REFERENCE Routine 08/08/2019 12:00 AM CDT documented in this encounter Results * Breast Imaging Screening Outside Reference (08/08/2019 12:00 AM CDT) Impressions RAD_MAMMO[facility] - 06/03/2021 11:15 AM CDT These images are for Reference purposes only and have not been reviewed by [facility]. ??There will be no report generated by a [facility] Radiologist. Narrative RAD_MAMMO_[facility] - 06/03/2021 11:15 AM CDT EXAMINATION: ??Images For Reference Purposes Only us Yanira Maher VP SOFTWARE ENGINEERING IMG MAMMO PROCEDURES Fin al Result [facility] documented in this encounter Visit Diagnoses Not on filedocumented in this encounter Care Teams Suspender Maker Relationship Specialty Start Date End Date Melba Garcia MD [address] [place] [address] PCP - General 04/24/08 documented as of this encounter
--- OUTSIDE RECORDS SUMMARY | 2024-03-14 13:02 | XMS_ITS | Encounter Summary ---
Author Organization [facility] Healthcare Address [address] [place] [address] Care Team Providers Care Tag Writer Name Role Phone Melba Garcia MD Primary Care Provider [phone] Reason for Visit * Diagnostic Imaging (Routine) - Closed Specialty Diagnoses / Procedures Referred By Kilo marion Referred To Contact Procedures Breast Imaging Screening Outside Reference Yanira Maher NP Phone: tel: fax: Referral ID Status Reason Start Date Expiration Date Visits Re quested Visits Authorized [id number] Closed 06/03/2021 07/03/2022 1 1 Encounter Details Date Type Department Care Team (Late st Contact Info) Description 03/07/2015 Hospital Encounter [facility] [address] [place] [phone] Social History Tobacco Use Types Packs/Day Years Used Date Smoking Tobacco: Every Day Vaping Smokeless Tobacco: Current Alcohol Use Standard Drinks/Week Comments No 0 (1 standard drink = 0.6 oz pur e alcohol) Occassionally vapes Comments No Sex and Gender Information Value Date Recorded Sex Assigned at Not on file Legal Sex Female 9:40 AM SECTIONIZER Gender Identity Female 08/23/2019 6:30 PM CDT Sexual Orientation Straight 08/23/2019 6: 30 PM CDT documented as of this encounter Plan of Treatment Not on file documented as of this encounter Procedures Procedure Name Priority Date/Time Associated Diagnosis Comments BREAST IMAGING MG SCREENING OUTSIDE REFERENCE Routine 03/07/2015 12:00 AM SECTIONIZER documented in this encounter Results * Breast Imaging Screening Outside Reference (03/07/2015 12:00 AM SECTIONIZER) Impressions [facility] - 06/03/2021 11:16 AM CDT These images are for Reference purposes only and have not been reviewed by [facility]. ??There will be no report generated by a [facility] Radiologist. Narrative RAD_MAMMO_[facility] - 06/03/2021 11:16 AM CDT EXAMINATION: ??Images For Reference Purposes Only us Yanira Maher DONKEY DOCTOR IMG MAMMO PROCEDURES Fin al Result [facility] documented in this encounter Visit Diagnoses Not on filedocumented in this encounter Care Teams Tag Writer Relationship Specialty Start Date End Date Melba Garcia MD [address] [place] [address] PCP - General 04/24/08 documented as of this encounter
--- OUTSIDE RECORDS SUMMARY | 2024-03-14 13:02 | XMS_ITS | Encounter Summary ---
Author Organization [facility] Healthcare Address [address] [place] [address] Care Team Providers Care Habilitation Specialist Name Role Phone Melba Garcia MD Primary Care Provider [phone] Reason for Visit * Diagnostic Imaging (Routine) - Closed Specialty Diagnoses / Procedures Referred By Kilo marion Referred To Contact Procedures Breast Imaging Screening Outside Reference Yanira Maher NP Phone: tel: fax: Referral ID Status Reason Start Date Expiration Date Visits Re quested Visits Authorized [id number] Closed 06/03/2021 07/03/2022 1 1 Encounter Details Date Type Department Care Team (Late st Contact Info) Description 04/18/2016 Hospital Encounter [facility] [address] [place] [phone] Social History Tobacco Use Types Packs/Day Years Used Date Smoking Tobacco: Every Day Vaping Smokeless Tobacco: Current Alcohol Use Standard Drinks/Week Comments No 0 (1 standard drink = 0.6 oz pur e alcohol) Occassionally vapes Comments No Sex and Gender Information Value Date Recorded Sex Assigned at Not on file Legal Sex Female 9:40 AM MOLYBDENUM STEAMER OPERATOR Gender Identity Female 08/23/2019 6:30 PM CDT Sexual Orientation Straight 08/23/2019 6: 30 PM CDT documented as of this encounter Plan of Treatment Not on file documented as of this encounter Procedures Procedure Name Priority Date/Time Associated Diagnosis Comments BREAST IMAGING MG SCREENING OUTSIDE REFERENCE Routine 04/18/2016 12:00 AM MOLYBDENUM STEAMER OPERATOR documented in this encounter Results * Breast Imaging Screening Outside Reference (04/18/2016 12:00 AM MOLYBDENUM STEAMER OPERATOR) Impressions [facility] - 06/03/2021 11:16 AM CDT These images are for Reference purposes only and have not been reviewed by [facility]. ??There will be no report generated by a [facility] Radiologist. Narrative RAD_MAMMO_[facility] - 06/03/2021 11:16 AM CDT EXAMINATION: ??Images For Reference Purposes Only us Yanira Maher BILLET RECORDER IMG MAMMO PROCEDURES Fin al Result [facility] documented in this encounter Visit Diagnoses Not on filedocumented in this encounter Care Teams Habilitation Specialist Relationship Specialty Start Date End Date Melba Garcia MD [address] [place] [address] PCP - General 04/24/08 documented as of this encounter
--- OUTSIDE RECORDS SUMMARY | 2024-03-14 13:02 | XMS_ITS | Data Portability ---
Author Organization [facility] [place] Address [address] [place] [address] Care Team Providers Care Entry Level Management Name Role Phone JAZMINE JIANG Primary Care Provider Assessment Encounter Date Assessment Date Assessment LastModified by Organization Details LastModified Time 12/23/2022 12/23/2022 Annual gynecological exam performed. Patient will come back in a year unless there are new symptoms. [email or web address] Not available 12/23/2022 15:20:36 01/12/2024 01/12/2024 Annual gynecological exam performed. Patient will come back in a year unless there are new symptoms. [email or web address] Not available 01/12/2024 12:20:43 Plan of Treatment Reminders Order Date Submit Date Provider Last Modified By Organization Details Last Modified Time Details Appointments [facility] 2024 11:45A M CLAYTON Dempsey Not available Not available Not available Lab None recorded. Referral breast surgery referral - ATTN: ULICESREFE RRING THIS PATIENT FOR ABNORMAL BREAST PAIN, STABLE 4MM CYST NEAR LEFT NIPPLE & BIRADS 2.*PLEASE CONTACT PATIENT SOON POSSIBLE FOR AN APPOINTME NT WITH ONE OF YOUR SPECIALIS TS*Attach ed to this referral are the patients demograph ics, most recent office visit notes, imaging & lab results.I f you have any questions or require further informati on, please contact me at [phone].Cristian aguirre,Elbert saucedo, Referrals 2021 022 [email or web address] [facility], [address] [place] [address], [address], 09/03/2021 18:00:16 breast surgery referral 2023 024 [facility], [address] [facility], [place], [address], 02/09/2024 04:03:31 Procedures None recorded. Surgeries None recorded. Imaging MAMMO, diagnosti c, digital, bilateral 2021 022 [facility], [address], [place], [address], 05/17/2021 18:24:35 US, breast, unilatera l 2021 022 [email or web address] [facility], [address], [place], [address], 09/04/2021 10:29:36 MAMMO, screening , bilateral 2022 023 [email or web address] [facility], [address], [place], [address], 03/03/2023 14:06:38 Medication Orders None recorded. Patient TargetsNo targets recorded. Patient InstructionsNo instructions recorded. Reason for Referral Breast Surgery Referral for Pain of breast ATTN: ULICESREFERRING THIS PATIENT FOR ABNORMAL BREAST PAIN, STABLE 4MM CYST NEAR LEFT NIPPLE & BIRADS 2.*PLEASE CONTACT PATIENT SOON POSSIBLE FOR AN APPOINTMENT WITH ONE OF YOUR SPECIALISTS*Attached to this referral are the patients demographics, most recent office visit notes, imaging & lab results.If you have any questions or require further information, please contact me at [phone].Thank you,Sandra, Referrals Referring Physician: Elizabeth Diamond, VENDING SERVICE TECHNICIAN, Encounter Date: 05/28/2021 Breast Surgery Referral for Pain of breast Referring Physician: Usha English VENDING SERVICE TECHNICIAN, Encounter Date: 01/12/2024 Results Created Date Observation Date Name Description Value Unit Range Abnormal Flag Note LastModifiedBy Organization Detail LastModifiedTime 12/25/19 23 12/24/2022 IMAGE GUIDE D PAP AND HPV REGAR DLESS image guided Pap, HPV regardless of Pap result SEE RESULT S BELOW CASE REPOR T: Cytol ogy Gynec ologi humble Repor t Case: [id number] Autho saranya mckoy Provi sebas: Jeana roa , Tung Samaniego cted: 12/24 1100 TOW BOAT CAPTAIN Order ing Locat ion: [place] [facility] Recei mika: 12/25 0848 First Scree n: Thuy Maldonado Rescr een: Scot Church, CT Speci men: Scree nilda Pap - Image d, Cervi x STATE MENT OF ADEQU ACY: Satis facto ry for evalu ation Trans forma tion zone compo nent absen t The absen ce of an endoc ervic al compo nent was confi rmed by an addit ional aminata ner. FINAL DIAGN OSIS: Negat pascual for Intra epith elial Lesmarian bowers or Ji hughes (NIL) . Elect wesley harris angelo d by Scot Church, CT on 12/26 at 2:39 PM ----- ----- ----- ----- ----- ----- ----- ----- ----- ----- ----- ----- ----- ----- ----- ----- ----- ---- HPV RESUL TS: HPV mRNA E6/E7 : No HPV mRNA Detec elder NOTE: This high risk HPV mRNA assay detec ts fourt een high- risk HPV types (16, 18, 31, 33, 35, 39, 45, 51, 52, 56, 58, 59, 66, 68) witho ut diffe renti ation . COMME NT: This speci men was revie wed by a Cytot echno logis t and/o r Patho logis t (as indic ated in this repor t) after evalu ation using the Thinp rep Imagi ng Syste m. CLINI HUMBLE INFOR MATIO N: Menst rual Statu s: LMP (if appli cable ): Clini humble Histo ry/Pr eviou s Pap: Type of Neopl jelani (if appli cable ): Signi fican t Clini humble Findi ngs: Other Histo ry: Hormo melissa (if appli cable ): PAP EDUCA KELLY L NOTE: The Pap Test is a scree nilda test with an inher ent false negat pascual rate. Liqui d-bas ed sampl ing may decre ase, but will not elimi ej, false negat pascual resul ts. A negat pascual resul t does not precl ude the prese nce and/o r devel opmen t of disea se, since the prese nce of abnor mal cells in the sampl e depen ds on the locat ion of the lesio n and sampl ing techn ique. Nataliia nued regul ar scree nilda is the best metho d of cance r preve ntion . If repor elder cytol ogic findi ng do not corre late with physi humble and/o r histo rical findi ngs, furth er inves tigat ion is recom terrence d, as clini alexis warra nted. Not Available [facility] ([facility]) [address], [place], [address], 12/26/2022 15:42:30 05/18/19 22 05/17/2021 MAMMO , diagn ostic , digit al, bilat eral No observ ation record ed. [facility] [address], [place], [address], 05/25/2021 00:38:21 06/04/19 23 06/02/2022 imagi ng/di agnos tic resul t No observ ation record ed. [address], [place], [address], 12/23/2022 15:32:04 Result Notes None recorded. Problems Name Problem SNOMED Code Status Onset Date Resolution Date Notes Provider Name and Address Organization Details Recorded Time Screenin g for malignan t neoplasm of cervix Completed 201205/09/2021 Screening for malignant neoplasms of the cervix;Re corded Elsewhere : No Locati on: [facility] So urce: EHR Chron ic: N Practic e ID: [id number] Bill able Time: 04:30:00 PM Shweta Edwards [facility] [address] 11:17:[address] Concept Completed 201705/09/2021 Encntr for general adult medical exam w/o abnormal findings; Recorded Elsewhere : No Locati on: [facility] So urce: EHR Chron ic: N Practic e ID: 0001 Bill able Time: 04:30:00 PM Shweta Edwards [facility] 2 11:17:29 Speciali sangitad medical examinat ion Completed 201305/09/2021 Gynecolog ical Examinati on;Record ed Elsewhere : No Locati on: [facility] So urce: EHR Chron ic: Y Practic e ID: 0001 Bill able Time: 04:30:00 PM Shweta Edwards [facility] 2 11:17:29 Radiolog ic finding [id number] Completed 201705/09/2021 Oth abn and inconclus pascual findings on dx imaging of breast;Re corded Elsewhere : No Locati on: [facility] So urce: EHR Chron ic: N Practic e ID: [id number] Bill able Time: 09:57:02 AM Shweta Edwards [facility] 2 11:17:28 Screenin g for malignan t neoplasm of rectum Completed 201105/09/2021 Screening for malignant neoplasms of the rectum;Re corded Elsewhere : No Locati on: [facility] So urce: EHR Chron ic: N Practic e ID: 0001 Bill able Time: 01:30:00 PM Shweta Edwards [facility] 2 11:17:29 Uterine prolapse [id number] Completed 06/04/ 2012 05/09/2021 Uterine prolapse without mention of vaginal wall prolapse; Recorded Elsewhere : No Locati on: [facility] So urce: EHR Chron ic: Y Practic e ID: [id number] Bill able Time: 01:30:00 PM Shweta ivey [facility] 2 11:17:28 Pre-surg fawn evaluati on Completed 201105/09/2021 Pre-opera tive examinati on, unspecifi ed;Practi ce ID: 0001 Shweta ivey [facility] 2 11:17:28 Prolapse of female genital organs 20783537 Completed 201105/09/2021 Other specified genital prolapse; Practice ID: 0001 Shweta ivey [facility] 2 11:17:29 Postoper ative follow-u p visit Completed 201105/09/2021 Follow-up examinati on, following other surgery;P ractice ID: [id number] Shweta ivey [facility] [address] 11:17:[address] Concept Completed 201505/09/2021 Encntr for frame repairer exam (general) (routine) w/o abn findings; Practice ID: [id number] Shweta ivey [facility] 2 11:17:29 Body mass index 25-29 - overweig [id number] Completed 201705/09/2021 Body mass index (BMI) 25.0-25.9 , adult;Rec orded Elsewhere : No Locati on: [facility] So urce: EHR Chron ic: N Practic e ID: [id number] Bill able Time: 04:30:00 PM Shweta ivey [facility] 2 11:17:28 Problem Notes None recorded. Procedures Surgical History Date Name Laterality Status Provider Name and Address Organization Details Recorded Time 07/29/19 Date of Last Mammogram completed Heaven Roman [facility] 01/12/2024 12:29:28 12/24/19 23 Date of Last Pap Smear completed [facility] 12/23/2022 18:49:02 03/14/19 22 completed [facility] 05/09/2021 11:29:49 03/14/19 22 Date of Last Colonoscopy completed [facility] 05/09/2021 11:29:49 03/14/19 22 Colonoscopy completed [facility] 05/28/2021 13:58:39 10/18/19 12 Total Hysterectomy completed [facility] 05/28/2021 13:28:16 02/16/18 97 Breast Biopsy completed [facility] 05/28/2021 13:28:05 02/16/18 91 Ovarian Cystectomy completed [facility] 05/28/2021 13:29:06 Imaging Results Imaging Date Name Status LastModified by Organiz ation Details LastModified Time 05/17/2021 MAMMO, diagnostic, digital, bilateral completed [facility] [address], [place], [address], 05/25/2021 00:38:21 06/02/2022 imaging/diagno stic result completed [address] [facility], [place], [address], 12/23/2022 15:32:04 Procedure Notes None recorded. Medical Equipment None Reported. Allergies No known drug allergies Medications Name Sig Start Date Stop Date Status Note LastModified by Organization Details LastModified Time gabapenti n 600 mg tablet active Not Available Not Available Not Available rizatript an 10 mg tablet take 1 tablet by oral route once, may repeat at 2 hour interval s; do not exceed 30 mg in 24 hours active Not Available Not Available No t Available diphenoxy late-atro pine 2.5 mg-0.025 mg tablet TAKE 1 TABLET BY MOUTH 4 TIMES DAILY NEEDED FOR DIARRHEA 01/11 completed Not Available Not Available Not Available meclizine 25 mg capsule 05/09 completed Not Available Not Available Not Available terbinafi ne HCl 250 mg tablet 01/11 completed Not Available Not Available Not Available Metrogel Vaginal 0.75 % (37.5 mg/5 gram) insert 1 applicat orful (37.5MG) by vaginal route every day at bedtime 07/29 completed Prescrib ed Elsewher e: No Locat ion: [facility] odify By: jjkjon xavier DateTime : 10/22/19 12 04:30:00 PM Not Available Not Available Not Available Imodium A-D 2 mg tablet take 2 tablet by oral route after 1st loose stool and 1 tablet (2 mg) after each next bowel movement ; do not exceed 16 mg in 24hrs 12/23 completed Prescrib ed Elsewher e: Yes [facility] By: espinoza merritt DateTime : 10/22/19 12 04:30:00 PM Not Available Not Available Not Available meclizine 25 mg tablet 01/11 completed Not Available Not Available Not Available Multiple Vitamins tablet take 1 tablet by oral route every day with food active Prescrib ed Elsewher e: Yes Loca tion: [facility] odify By: espinoza Polanco ter DateTime : 10/22/19 12 04:30:00 PM Not Available Not Available Not Available diazepam 2 mg tablet active Not Available Not Available Not Available Xanax 0.25 mg tablet take 1 tablet by oral route 3 times every day 12/23 completed Prescrib ed Elsewher e: Yes Loca tion: [facility] odify By: candice thorpeunter DateTime : 06/26/19 18 04:30:00 PM Not Available Not Available Not Available rizatript an 10 mg disintegr ating tablet 01/11 completed Not Available Not Available Not Available buspirone 30 mg tablet take 1 tablet by oral route 2 times every day 05/09 completed Prescrib ed Elsewher e: Yes Loca tion: [facility] odify By: candice gonzales DateTime : 06/20/19 17 02:30:00 PM Not Available Not Available Not Available diphenoxy late-atro pine 0.025-2.5 mg tablet 05/09 completed Not Available Not Available Not Available gabapenti n 300 mg capsule 12/23 completed Not Available Not Available Not Available omeprazol e 20 mg capsule,d elayed release 12/23 completed Not Available Not Available Not Available Tylenol 325 mg tablet take 1 tablet by oral route every 4 hours as needed 06/19 completed Prescrib ed Elsewher e: Yes Loca tion: [facility] odify By: candice thorpeuntshimon DateTime : 10/22/19 12 04:30:00 PM Not Available Not Available Not Available gabapenti n 100 mg capsule 12/23 completed Not Available Not Available Not Available topiramat e 100 mg tablet active Not Available Not Available Not Available buspirone 15 mg tablet active Not Available Not Available Not Available Lexapro 10 mg tablet take 1 tablet by oral route every day 06/19 completed Prescrib ed Elsewher e: Yes Loca tion: [facility] odify By: candice thorpeuntshimon DateTime : 10/22/19 12 04:30:00 PM Not Available Not Available Not Available Jolivette 0.35 mg tablet take 1 tablet by oral route every day 07/29 completed Prescrib ed Elsewher e: No Locat ion: [facility] odify By: jjkline Curtis xavier DateTime : 07/08/19 12 03:35:09 PM Not Available Not Available Not Available Abilify 5 mg tablet take 1 tablet by oral route every day 12/23 completed Prescrib ed Elsewher e: Yes Loca tion: [facility] odify By: candice thorpeuntshimon DateTime : 06/26/19 18 04:30:00 PM Not Available Not Available Not Available Topamax 50 mg tablet take 1 tablet by oral route 2 times every day 12/23 completed Prescrib ed Elsewher e: Yes Loca tion: [facility] odify By: espinoza merritt DateTime : 10/22/19 12 04:30:00 PM Not Available Not Available Not Available duloxetin e 30 mg capsule,d elayed release TAKE 1 CAPSULE BY MOUTH IN THE MORNING 12/23 completed Not Available Not Available Not Available duloxetin e 60 mg capsule,d elayed release active Not Available Not Available Not Available topiramat e 05/09 completed Not Available Not Available Not Available ADVANCED Calcium 05/09 completed Not Available Not Available Not Available Vitamin D3 10 mcg (400 unit) capsule active Prescrib ed Elsewher e: Yes Loca tion: [facility] odify By: chaodical Encount er DateTime : 08/05/19 14 04:30:00 PM Not Available Not Available Not Available B-12 Plus 5,000 mcg-100 mcg sublingua l tablet active Not Available Not Available Not Available Calcium 500 + D (D3) active Not Available Not Available Not Available melatonin 5 mg capsule 12/23 completed Prescrib ed Elsewher e: Yes Loca tion: [facility] odify By: candice gonzales DateTime : 06/20/19 17 02:30:00 PM Not Available Not Available Not Available Gilenya 0.5 mg capsule take 1 capsule by oral route every day 12/23 completed Prescrib ed Elsewher e: Yes Loca tion: [facility] odify By: candice thorpeuntshimon DateTime : 06/20/19 17 02:30:00 PM Not Available Not Available Not Available [place] 3 Fish Oil 684 mg-1,200 mg capsule,d elayed release 2017 active Prescrib ed Elsewher e: Yes Loca tion: [facility] odify By: candice thorpeuntshimon DateTime : 06/26/19 18 04:30:00 PM Not Available Not Available Not Available James Jimenez 05/09 completed Not Available Not Available Not Available Vitamin B-12 1,000 mcg/mL oral drops active Prescrib ed Elsewher e: Yes Loca tion: [facility] odify By: cmedical Encount er DateTime : 08/05/19 14 04:30:00 PM Not Available Not Available Not Available duloxetin e HCl (bulk) 100 % powder 05/09 completed Prescrib ed Elsewher e: Yes Loca tion: [facility] odify By: candice Hall ncounter DateTime : 06/20/19 17 02:30:00 PM Not Available Not Available Not Available [facility] min Hi Potency 05/09 completed Not Available Not Available Not Available Mayzent 0.25 mg tablet active Not Available Not Available Not Available Vitals Date Recorded Body height Body mass index (BMI) Body weight Systolic blood pressure Diastolic blood pressure Provider Name and Address Organization Details Last Updated DateTime 05/09/2021 172.72 cm 21.5 kg/m2 24930.68 g 126 mm[Hg] 70 mm[Hg] Shweta Edwards [facility] 2 11:29:29 Date Recorded Body height Body mass index (BMI) Body weight Systolic blood pressure Diastolic blood pressure Provider Name and Address Organization Details Last Updated DateTime 05/28/2021 172.72 cm 21.6 kg/m2 84338.12 g 120 mm[Hg] 82 mm[Hg] Gemma Tom [facility] 2 13:22:19 Date Recorded Body height Body mass index (BMI) Body weight Systolic blood pressure Diastolic blood pressure Provider Name and Address Organization Details Last Updated DateTime 12/23/2022 172.72 cm 21.6 kg/m2 87761.12 g 120 mm[Hg] 80 mm[Hg] Gemma Tom [facility] 3 15:21:50 Date Recorded Body height Body mass index (BMI) Body weight Systolic blood pressure Diastolic blood pressure Provider Name and Address Organization Details Last Updated DateTime 01/12/2024 172.72 cm 25.5 kg/m2 23943.52 g 117 mm[Hg] 56 mm[Hg] Heaven Roman [facility] 12:26:57 Social History Question Answer Notes LastModified by Organizat ion Details LastModified Time Tobacco Smoking Status Current Every Day Smoker Shweta Edwards [facility], [facility] 05/09/2021 11:33:33 Do You Have An Advance Directive? No Information n ot available 05/09/2021 What Is Your Level Of Alcohol Consumption? None Information not available 05/09/2021 Are You Blind Or Do You Have Difficulty Seeing? No Information n ot available 05/09/2021 What Is Your Level Of Caffeine Consumption? Heavy Information not available 05/09/2021 How Much Tobacco Do You Chew? None Information not available 05/09/2021 In The 14 Days Before Symptom Onset, Have You Had Close Contact With A Laboratory-confirm ed COVID-19 While That Case Was Ill? No Information n ot available 05/09/2021 In The 14 Days Before Symptom Onset, Have You Had Close Contact With A Person Who Is Under Investigation For COVID-19 While That Person Was Ill? No Information not available 05/09/2021 Have You Been To An Area Known To Be High Risk For COVID-19? No Information not available 05/09/2021 Are You Deaf Or Do You Have Serious Difficulty Hearing? No Information not available 05/09/2021 What Type Of Diet Are You Following? REGULAR Information n ot available 05/09/2021 What Is The Highest Grade Or Level Of School You Have Completed Or The Highest Degree You Have Received? [id number] Information not available 05/09/2021 What Is Your Occupation? Disabled Information not available 05/09/2021 Are There Any Guns Present In Your Home? Yes Information not available 05/09/2021 Do You Use Protection During Sex? No Information not available 05/09/2021 Do You Use Your Seat Belt Or Car Seat Routinely? Yes Information not available 05/09/2021 Do You Have Smoke And Carbon Monoxide Detectors In Your Home? Yes Information not available 05/09/2021 At What Age Did You Start Smoking Tobacco? 26 Information not available 05/09/2021 How Much Tobacco Do You Smoke? 1 PPD Information not available 05/09/2021 Do You Feel Stressed (tense, Restless, Nervous, Or Anxious, Or Unable To Sleep At Night)? [id number] Information not available 05/09/2021 Do You Use Any Illicit Or Recreational Drugs? Yes Information not available 05/09/2021 Do You Use Sunscreen Routinely? No Information not available 05/09/2021 How Many Years Have You Smoked Tobacco? 30 Information not available 05/09/2021 Have You Used IV Drugs? No Information not available 05/09/2021 Sex: Unknown Functional Status Question Answer Note LastModified by Organizat ion Details LastModified Time Do you have difficulty walking or climbing stairs? No Information not available 05/09/2021 Are you able to walk? YESWOREST Information not available 05/09/2021 Are you able to care for yourself? Yes Information not available 05/09/2021 Do you have difficulty dressing or bathing? No Information not available 05/09/2021 What is your exercise level? Occasional Information not available 05/09/2021 Mental Status None recorded. Family History Relationship Description Onset Age of this Age Resolved Age Notes LastModified by Organization Details LastModified Time Maternal Grandmother Heart disease Not available 2021 11:29:34 Maternal Grandmother Depressive disorder Not available 2021 11:29:34 Father Depressive disorder Not available 2021 11:29:34 Father Hypertensive disorder Not available 2021 11:29:34 Father Heart disease Not available 2021 11:29:34 Paternal Grandmother Depressive disorder Not available 2021 11:29:34 Medical History Condition Response Allergies (Food, seasonal, environmental ) N Other Y Breast Cancer N Drug/Latex Allergies/Reactions N Blood Transfusion N Dermatologic Disorders N Lung Disease N Defects or Inherited Disease N Breast Problem Y Gestational Diabetes N Hematologic disorders N Anesthesia Complications Y History of STI N Deep Vein Thrombosis N Polycystic ovary syndrome N Anxiety Disorder Y Autoimmune disease Y Arthritis Y Infertility N Polyps N Acid Reflux (GERD) Y History of abnormal pap N Cancer N Stroke N Varicosities Y Neurologic/Epilepsy Y Endometriosis N High Cholesterol N Headaches Y Fibromyalgia N Kidney Disease N Heart Problems N Kidney or Bladder Problems Y Thyroid Problems N GI Problems Y Eating Disorder N Anemia N Art (IVF or FET) N Psychiatric Illness N Ovarian Cancer N Diabetes N Pulmonary (TB, Asthma) N Hepatitis/Liver Disease N No Past Medical History N Eczema N Urinary Tract Infection N Abuse/Domestic Violence N Asthma N Trauma/Violence N Depression/ depression Y Heart Disease N Pre-Eclampsia N Hypertension N Osteoporosis N Thrombophilias N Gynecological History Statement/Question Response Abnormal Pap N Date of Last Mammogram 07/29/2023 Date of LMP 10/18/2011 On BCP's at Conception? N N STIs/STDs N HPV Vaccine N Current Control Method Hysterectom y Age at First Child 21 Date of Last Colonoscopy 03/14/2021 Most Recent Bone Density Sexually Active? Y Age of first menstrual cycle 11 Date of Last Pap Smear 12/23/2022 Sexual Problems? N LMP Unknown 03/14/2021 N Obstetrics History GPAL:G 2 P 2 0 0 2 Type Value Full Term 2 Living 2 Total 2 Past Encounters Encounter ID Performer Location Encounter Start Date Encounter Closed Date Diagnosis/Indication Diagnosis SNOMED-CT Code Diagnosis ICD10 Code Diagnosis Note [id number] Elizabeth Diamond [facility] [address] [address] 05/09/2021 10:29:21 05/10/2021 15:21:04 Pain of breast [id number] N64.4 N60.19 Z80.3 Will complete diagnostic imaging of breast(s) with targeted US for left breast.Sofiya l complete [facility] cancer screen testing today at lab.Will contact with results Time spent in visit is a total of 15 mins with at least 50% of visit consisting of counseling and review of plan of care.Addit ional precaution beltran measures were taken to minimize potential exposure to the Covid-19 virus during this patient? s visit, including available hand roller mill operator upon arrive, temperatur e check and being asked a series of screening questions. All staff wore face coverings during this encounter, as well as provided additional cleaning and sanitizing of all surfaces, including countertop s, pens, chairs, door handles, light switches, etc, prior to and following the patient? s visit. [id number] Elizabeth Diamond [facility] [address] [address] 05/28/2021 12:55:55 05/28/2021 13:45:38 Pain of breast [id number] N64.4 N60.19 Z80.3 Patient continues to have breast pain with palpation, wearing bras and pain that shoots through the areas found on her recent diag mammo/US where benign cysts are.We still question if these areas are the ones causing this aggravatio n in this breast on left side.She appreciate s the referral to breast specialist .Agrees to add Evening [place] oil to her daily regimen to see if this might help in any way. If does not hear from collections specialist within 7 business days please contact office to check in. Still awaiting Genetic cancer screen by [facility]. Time spent in visit is a total of 15 mins with at least 50% of visit consisting of counseling and review of plan of care.Addit ional precaution beltran measures were taken to minimize potential exposure to the Covid-19 virus during this patient? s visit, including available hand roller mill operator upon arrive, temperatur e check and being asked a series of screening questions. All staff wore face coverings during this encounter, as well as provided additional cleaning and sanitizing of all surfaces, including countertop s, pens, chairs, door handles, light switches, etc, prior to and following the patient? s visit. [id number] Elizabeth Diamond , [facility] [address] [address] 12/23/2022 14:52:54 12/23/2022 15:39:18 Gynecologic examination [id number] Z01.419 Take Calcium with Vitamin D 12-1500mg daily. Do monthly self breast exams. It is advised to get annual flu shot in the fall and she could obtain at [facility] or [facility] clinic. If you haven't received the Tdap vaccine in the last 10 years you should obtain one as well. Have mammogram yearly, bone density every 2-3 years and colonoscop y every 5-10 years depending on findings and history. Engage in daily exercise of low impact aerobic exercise 45-60 minutes 4-5 times weekly. Avoid tobacco and illicit drugs as well as using moderation with alcohol intake less than 1-2 8 oz beverages daily. This lifestyle behavior pattern will lead to less health conditions and longer life span. If BMI greater than 25 weight watchers or dietary consult advised. Questions have been answered. Patient appears to understand instructio ns, but if you have any further questions call or respond to this email Pap/hpv USPSTF recommends against screening for cervical cancer in women older than 65yo, those who've had a hysterecto my for non-cancer indication s, & who have had adequate prior screening & are not otherwise at high risk for cervical cancer. STD Screen declinedGe netic Screen discussedC olon Screen UTD PCP exa Screen PCPRoutine Labs PCP UTD Screening mammography [id number] Z12.31 [id number] CLAYTON Dempsey [place] [address] [address] 01/12/2024 12:04:02 01/12/2024 13:49:17 Gynecologic examination [id number] Z01.419 WWEpostmen opausalPap - not indicatedS TI screen - declinedMa mmogram - UTDColon cancer screening - UTDDexa - UTDRoutine labs - UTDRTC in 1 yr or sooner if needed Do monthly self breast exams.It is advised to get annual flu shot in the fall and she could obtain at local pharmacy. If you haven't received the Tdap vaccine in the last 10 years you should obtain one as well.Have mammogram yearly, bone density every 2-3 years and stay up to date on colon cancer screening. Engage in regular exercise. Avoid tobacco and illicit drugs. This lifestyle behavior pattern will lead to less health conditions and longer life span. If BMI greater than 25 dietary consult advised.Qu estions have been answered. Pain of breast [id number] N64.4 pain of left breast for many yearsmammo gram UTDrecomme nd pt be seen by breast specialist for consult again, referral placedsmok ing cessation encouraged , continue evening primrose oil Health Concerns Section Related Observation LastModified by Organization Lou ls LastModified Time None Recorded Concern Status LastModified by Organization Details LastModified Time None Recorded Advance Directives Directive N: Payers Encounter Date Sequence Insurance Name Policy Number Policy Bor[place] Covered Member ID Obrien Member ID Guarantor Name 05/09/2021 1 [employer] [id number] Anuja Lowry [id number] Anuja Lowry 05/09/2021 2 [place] Anuja Lowry [id number] Anuja Lowry 05/28/2021 1 [employer] [id number] Anuja Lowry [id number] Anuja Lowry 05/28/2021 2 [place] Anuja Lowry [id number] Anuja Lowry 12/23/2022 1 [employer] (HMO) Anuja Riosh [id number] Anuja Lowry 01/12/2024 1 [employer] (HMO) Anuja Riosh [id number] Anuja Riosh 01/12/2024 1 [employer] (HMO) Anuja Riosh [id number] Anuja Lowry Notes Date Note Type Note Provider Name and Address Organization Details Recorded Time 2 text/html Breast PainReported bypatient.Location:left; central Onset/Timing:>1 month Duration:constant Quality:throbbing; aching Severity:moderate Context:post menopause; fibrocystic breasts; family history of breast cancer (Mother metastatic breast cancer) Associated Symptoms:no fever; no chills; no skin redness; no nipple discharge; breasts not full, sore, unable to express milk; no breast swelling; no arm pain; no arm swelling; no chest pain; no malaise; no breast lump;sore nipples FERNANDA Crawford [address], [place], [address], [facility] 05/09/2021 17:26:01 2 text/html Here today for r/p breast exam after recent imaging. FERNANDA Crawford [address], [place], [address], [facility] 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 Post-MenopausalReported bypatient.Menopausal Symptoms:no menopausal symptoms; normal vaginal lubrication Vaginal Bleeding:history of menopause having occurred; no history of post menopausal bleeding Urinary Symptoms:no hematuria; no incontinence; no nocturia; no urinary frequency Vulva:no genital lesion; no vulvar atrophy Vagina:normal vaginal discharge; no vaginal atrophy Breast:no breast lump; no nipple discharge; no breast pain Sexual Complaints:no sexual complaints Psychological Symptoms:no depression; no anxiety Preventive Measures:encourage regular mammograms starting age 40; encourage self breast examination; encourage regular exercise; encourage no tobacco use; mammogram performed within the past year; history of recent colonoscopy CLAYTON Crawford- [address], [place], [address], [facility] 12/23/2022 15:34:03 4 text/html Annual Chemical Machine Tender Post-MenopausalReported bypatient.Menopausal Symptoms:no menopausal symptoms; normal vaginal lubrication Vaginal Bleeding:history of menopause having occurred; no history of post menopausal bleeding Urinary Symptoms:no hematuria; no incontinence; no nocturia; no urinary frequency Vulva:no genital lesion; no vulvar atrophy Vagina:normal vaginal discharge; no vaginal atrophy Breast:no breast lump; no nipple discharge;breast pain Sexual Complaints:no sexual complaints Psychological Symptoms:no depression; no anxiety Preventive Measures:encourage regular mammograms starting age 40; encourage self breast examination; encourage regular exercise; encourage no tobacco useNotes:58yo wweh/o hyst in 2011 - non-cancerous indicationsmammogram UTD, 07/2023left breast pain for years, takes evening primrose oil and this helps some. Saw breast specialist last in 2021. H/o left breast biopsy, benign - in 1996 genetic testing 13.5 % - osteopenia, dexa scheduledcolonoscopy CLAYTON Dempsey [address], [place], [address], [facility] 01/12/2024 13:47:22 OBGyn Episode Ob Episode Information Episode Created Date Number of Fetuses Patient Bloodtype Patient rh Status Prepregnancy Weight lbs Domestic Partner Domestic Partner Phone Father Name Curriculum Specialist Status 05/10/19 22 1 CLOSED Fetus Data First Name Last Name Admitted to NICU Weight (g) Sex Living Outcome Pediatric Complications Fetus ID Race Codes Race Delivery Type F Full Term [id number] Vaginal Delivery Nathen Calculation Initial Nathen Date Initial Exam Date Initial Exam Provider Initial Ultrasound Date Last Menstrual Period Date Ultra Sound Weeks Gestation 0 Eighteen To Twenty Week Nathen Update Ultra Sound Date Fundal Height At Umbil Quickening Date Ultra Sound Latest Weeks Gestation Final Nathen Confirmed By Final Nathen Confirmed Date Final Nathen Date Ultra Sound Latest Days Gestation 0 0 Menstrual History Last Menstrual Date Menses Monthly On Bcp Conception Prior Menses Frequency Hcg Plus Date Menarche Onset Age Delivery Information Delivery Date Delivery Type Labor Anesthesia Weeks Gestation Incision Type Labor Labor Length Hrs Delivered By Post Complications Tubal Sterilization Discharge Date Comments 7 Discharge Information Feeding Method Contraceptive Method Maternal HG B and HCT Levels Ob Episode Information Episode Created Date Number of Fetuses Patient Bloodtype Patient rh Status Prepregnancy Weight lbs Domestic Partner Domestic Partner Phone Father Name Curriculum Specialist Status 05/10/19 22 1 CLOSED Fetus Data First Name Last Name Admitted to NICU Weight (g) Sex Living Outcome Pediatric Complications Fetus ID Race Codes Race Delivery Type M Full Term [id number] Vaginal Delivery Nathen Calculation Initial Nathen Date Initial Exam Date Initial Exam Provider Initial Ultrasound Date Last Menstrual Period Date Ultra Sound Weeks Gestation 0 Eighteen To Twenty Week Nathen Update Ultra Sound Date Fundal Height At Umbil Quickening Date Ultra Sound Latest Weeks Gestation Final Nathen Confirmed By Final Nathen Confirmed Date Final Nathen Date Ultra Sound Latest Days Gestation 0 0 Menstrual History Last Menstrual Date Menses Monthly On Bcp Conception Prior Menses Frequency Hcg Plus Date Menarche Onset Age Delivery Information Delivery Date Delivery Type Labor Anesthesia Weeks Gestation Incision Type Labor Labor Length Hrs Delivered By Post Complications Tubal Sterilization Discharge Date Comments 9 Discharge Information Feeding Method Contraceptive Method Maternal HG B and HCT Levels
--- OUTSIDE RECORDS SUMMARY | 2024-03-14 13:02 | XMS_ITS | Encounter Summary ---
Author Organization [facility] Healthcare Address [address] [place] [address] Care Team Providers Care Histopath Tech Name Role Phone Melba Garcia MD Primary Care Provider [phone] Reason for Visit * Diagnostic Imaging (Routine) - Closed Specialty Diagnoses / Procedures Referred By Kilo marion Referred To Contact Procedures Breast Imaging US Outside Reference Yanira Maher NP Phone: tel: fax: Referral ID Status Reason Start Date Expiration Date Visits Re quested Visits Authorized [id number] Closed 06/03/2021 07/03/2022 1 1 Encounter Details Date Type Department Care Team (Late st Contact Info) Description 05/25/2017 12:05 AM CDT Hospital Encounter [facility] [address] [place] [id number] Social History Tobacco Use Types Packs/Day Years Used Date Smoking Tobacco: Every Day Vaping Smokeless Tobacco: Current Alcohol Use Standard Drinks/Week Comments No 0 (1 standard drink = 0.6 oz pur e alcohol) Occassionally vapes Comments No Sex and Gender Information Value Date Recorded Sex Assigned at Not on file 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 Gender Identity Female 08/23/2019 6:30 PM CDT Sexual Orientation Straight 08/23/2019 6: 30 PM CDT documented as of this encounter Plan of Treatment Not on file documented as of this encounter Procedures Procedure Name Priority Date/Time Associated Diagnosis Comments BREAST IMAGING US OUTSIDE REFERENCE Routine 05/25/2017 12:05 AM CDT documented in this encounter Results * Breast Imaging US Outside Reference (05/25/2017 12:05 AM CDT) Impressions [facility] - 06/03/2021 11:17 AM CDT These images are for Reference purposes only and have not been reviewed by [facility] Radiology. ??There will be no report generated by a [facility] Radiologist. 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
--- OUTSIDE RECORDS SUMMARY | 2024-03-14 13:02 | XMS_ITS | Clinical Summary ---
Author Organization [facility] Building B Address [address] [place] [address] Care Team Providers Care Brake Tester Name Role Phone Melba Garcia MD Primary Care Provider [phone] Elizabeth Diamond LABORER/KEY MAN Unavailable [phone] Usha English LABORER/KEY MAN Unavailable [phone] Allergies Active Allergy Reactions Criticality Noted Date Comments Erythromycin Unknown 09/15/2016 Penicillins Sulfa (Sulfonamide Antibiotics) Medications cyanocobalamin, vitamin B-12, (VITAMIN B-12) 5,000 mcg tablet, sublingual 5,000 mcg. 0 0 6 Active cholecalciferol (VITAMIN D3) 5,000 unit tablet take 1 tablet by oral route every day 0 0 6 Active diphenoxylate-atr opine (LOMOTIL) 2.5-0.025 mg per tablet take 2 tablet by oral route 4 times every day as needed 0 0 5 Active MULTIVIT WITH CALCIUM,IRON,MIN (WOMEN'S DAILY MULTIVITAMIN ORAL) Take by mouth. Activ e CALCIUM ORAL Take by mouth daily Active docosahexaenoic acid/epa (FISH OIL ORAL) Take by mouth Active cannabidiol, CBD, (medical cannabis) each as needed Activ e meclizine (ANTIVERT) 25 mg tablet Take 1 tablet (25 mg total) by mouth 3 (three) times a day as needed for dizziness 360 tablet 3 Active karley abzb-itcptvor-ogp olenic ac 1,000 mg capsule Active busPIRone (BUSPAR) 15 mg tabletIndications :Generalized Anxiety Disorder Take 1 tablet (15 mg total) by mouth 3 (three) times a day Active DULoxetine DR (CYMBALTA) 60 mg capsule TAKE 1 CAPSULE TWICE DAILY 180 capsule 3 4 Active topiramate (TOPAMAX) 100 mg tabletIndications :Multiple sclerosis (HCC),Migraine with aura and without status migrainosus, not intractable TAKE 1 AND 1/2 TABLETS EVERY NIGHT 135 tablet 3 4 Active gabapentin (NEURONTIN) 600 mg tabletIndications :Multiple sclerosis (HCC) TAKE 1 TABLET EVERY NIGHT 90 tablet 3 4 Active diazePAM (VALIUM) 2 mg tablet TAKE 1/2 TO 1 TABLET (1-2 MG TOTAL) DAILY NEEDED (VERTIGO) 30 tablet 5 4 Active Mayzent 1 mg tabletIndications :Multiple sclerosis (HCC) Take 1 mg by mouth daily 90 tablet 3 4 Active rizatriptan (MAXALT) 10 mg tablet TAKE 1 TABLET DAILY NEEDED FOR MIGRAINE 36 tablet 3 4 Active Active Problems Problem Noted Date Diagnosed Date Vertigo 06/03/2022 Assessment & Plan (04/22/2023 6:53 AM CREDIT PROCESSOR): Bouts of spinning sensation lasting up to 3 days at a time. ENT evaluation consistent with right-sided Meniere's disease her Dr. Roosevelt Erwin. She reports ringing in her ears and hearing loss in her right ear. No brainstem lesion, but vertigo could be due to multiple sclerosis. Vertigo could also be related to migraine although her symptoms are generally not when she has a headache. Assessment & Plan (10/18/2022 3:20 PM CDT): Bouts of spinning sensation lasting up to 3 days at a time. ENT evaluation consistent with right-sided Meniere's disease her Dr. Roosevelt Erwin. She reports ringing in her ears and hearing loss in her right ear. No brainstem lesion, but vertigo could be due to multiple sclerosis. Vertigo could also be related to migraine although her symptoms are generally not when she has a headache. Assessment & Plan (06/03/2022 10:05 AM CDT): Bouts of spinning sensation lasting up to an entire day in April 2022. Symptoms inconsistent with benign positional vertigo. ENT evaluation recommended since having both ongoing ringing in her ears and hearing loss in her right ear. No brainstem lesion, but vertigo could be due to multiple sclerosis. Vertigo could also be related to migraine although her symptoms are generally not when she has a headache. Qulipta initiated. History of COVID-19 11/25/2021 Assessment & Plan (04/22/2023 6:55 AM CREDIT PROCESSOR): July 2021 Fever up to 103?? F, headache, nasal congestion, sore throat and cough Treated with monoclonal antibody therapy Assessment & Plan (10/18/2022 3:11 PM CDT): July 2021 Fever up to 103?? F, headache, nasal congestion, sore throat and cough Treated with monoclonal antibody therapy Assessment & Plan (06/03/2022 10:07 AM CDT): July 2021 Fever up to 103?? F, headache, nasal congestion, sore throat and cough Treated with monoclonal antibody therapy Assessment & Plan (11/25/2021 5:57 PM CDT): July 2021 Fever up to 103?? F, headache, nasal congestion, sore throat and cough Treated with monoclonal antibody therapy Breast pain 06/24/2021 Neurogenic bladder 03/22/2017 Assessment & Plan (04/22/2023 6:53 AM CREDIT PROCESSOR): Non-pharmacologic management discussed. Assessment & Plan (10/18/2022 3:10 PM CDT): Non-pharmacologic management discussed. Assessment & Plan (06/03/2022 10:05 AM CDT): Non-pharmacologic management discussed. Assessment & Plan (11/25/2021 5:55 PM CDT): Non-pharmacologic management Assessment & Plan (05/27/2021 5:08 PM CDT): Non-pharmacologic management Assessment & Plan (05/17/2020 7:23 AM CDT): Non-pharmacologic management Assessment & Plan (12/02/2019 12:13 PM CDT): Non-pharmacologic management Assessment & Plan (04/20/2019 2:40 PM CREDIT PROCESSOR): Non-pharmacologic management Assessment & Plan (10/19/2018 5:31 PM CDT): Non-pharmacologic management Assessment & Plan (03/25/2018 7:00 PM CREDIT PROCESSOR): Nonpharmacologic management. Assessment & Plan (10/12/2017 6:01 PM CDT): Nonpharmacologic management. Assessment & Plan (03/22/2017 7:50 AM CREDIT PROCESSOR): Nonpharmacologic management. Moderate recurrent major depression 09/15/2016 Assessment & Plan (04/22/2023 6:54 AM CREDIT PROCESSOR): Cymbalta 60 mg twice a day Buspirone 15 mg three times a day Psychiatry and therapy evaluation. Assessment & Plan (10/18/2022 3:10 PM CDT): Cymbalta 60 mg twice a day Buspirone 15 mg three times a day Psychiatry and therapy evaluation. Assessment & Plan (06/03/2022 10:07 AM CDT): Cymbalta 60 mg daily Buspirone 15 mg twice a day Psychiatry and therapy evaluation. Assessment & Plan (04/20/2019 2:40 PM CREDIT PROCESSOR): Cymbalta 90 mg q.h.s. Buspirone 15 mg 3 times a day Abilify 10 mg at night Xanax 0.25 mg prn Psychiatry follow-up with Dr. Valles Assessment & Plan (10/19/2018 5:30 PM CDT): Cymbalta 90 mg q.h.s. Buspirone Abilify Xanax prn Psychiatry follow-up with Dr. Valles Assessment & Plan (03/25/2018 6:59 PM CREDIT PROCESSOR): Cymbalta 90 mg q.h.s. Buspirone Abilify Xanax prn Psychiatry follow-up with Dr. Valles Assessment & Plan (10/12/2017 6:01 PM CDT): Cymbalta 90 mg q.h.s. Buspirone Abilify Xanax prn Psychiatry follow-up Starting counseling Assessment & Plan (03/22/2017 7:46 AM CREDIT PROCESSOR): Cymbalta Buspirone Abilify Xanax prn Psychiatry follow-up Assessment & Plan (09/16/2016 7:50 AM CDT): Cymbalta Buspirone Abilify Xanax prn Psychiatry follow-up Multiple sclerosis 11/08/2013 Overview (03/27/2020): Multiple sclerosis DMT history ASSESS trial Copaxone vs Gilenya 0.25 [id number] Gilenya 0.5 mg 08/01/2015-current Mayzent (CYP2C9 *1/*3) 1mg dose: 02/18/2020- Assessment & Plan (04/22/2023 6:52 AM CREDIT PROCESSOR): Periventricular and juxtacortical white matter lesions. No brainstem or cerebellar lesions. White matter lesions on MRI of the brain since 2001 at age 36; presented with vertigo and extremity numbness. MRI cervical/thoracic spinal cord normal November 2020 for my review. CSF 08/08/05: IgG index 0.39, IgG synthesis rate <0.0, 1 unique oligoclonal bands in the CSF (2 bands CSF, 1 band serum) Mayzent 1 mg daily. CYP2C9 *1/*3. Risks discussed including cryptococcal meningitis and PML. Increased risk of serious complications including pneumonia and possibly if develops COVID-19 reinfection discussed. She completed her 2nd Moderna COVID-19 vaccine on July 14, 2020. Booster vaccination recommended. She understands Mayzent may reduce the efficacy of a COVID-19 vaccine and potentially she may not be protected. Paxlovid advised if she develops COVID-19 again. Vitamin D3 supplement 5000 IU Will avoid Provigil since CYP2C9 *1/*3 and on Junezen. Cymbalta 60 mg twice a day for dysesthesias. For burning back pain, gabapentin 600 mg at bedtime. Exercise encouraged MRI brain with central vein sign protocol April 2024. 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 Khadar Phillips). Assessment & Plan (10/18/2022 3:06 PM CDT): Periventricular and juxtacortical white matter lesions. No brainstem or cerebellar lesions. White matter lesions on MRI of the brain since 2001 at age 36; presented with vertigo and extremity numbness. MRI cervical/thoracic spinal cord normal November 2020 for my review. CSF 08/08/05: IgG index 0.39, IgG synthesis rate <0.0, 1 unique oligoclonal bands in the CSF (2 bands CSF, 1 band serum) Mayzent 1 mg daily. CYP2C9 *1/*3. Risks discussed including cryptococcal meningitis and PML. Increased risk of serious complications including pneumonia and possibly if develops COVID-19 reinfection discussed. She completed her 2nd Moderna COVID-19 vaccine on July 14, 2020. Booster vaccination recommended. She understands Mayzent may reduce the efficacy of a COVID-19 vaccine and potentially she may not be protected. Paxlovid advised if she develops COVID-19 again. Vitamin D3 supplement 5000 IU Will avoid Provigil since CYP2C9 *1/*3 and on Mayzent. Cymbalta 60 mg twice a day for dysesthesias. For burning back pain, resume gabapentin 600 mg at bedtime. Exercise encouraged MRI brain with central vein sign protocol April 2024. 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 Khadar Phillips). Assessment & Plan (06/03/2022 10:06 AM CDT): Mayzent 1 mg daily. CYP2C9 *1/*3. Risks discussed including cryptococcal meningitis and PML. Increased risk of serious complications including pneumonia and possibly if develops COVID-19 reinfection discussed. She completed her 2nd Moderna COVID-19 vaccine on July 14, 2020. Bivalent booster vaccination recommended. She understands Mayzent may reduce the efficacy of a COVID-19 vaccine and potentially she may not be protected. Paxlovid advised if she develops COVID-19 again. Vitamin D3 supplement 5000 IU Never tried Provigil for fatigue as previously prescribed. Will avoid Provigil since CYP2C9 *1/*3 and on Mayzent. Cymbalta 60 mg at night for paresthesias For burning back pain, gabapentin 300 mg-300 mg-600 mg. Exercise encouraged MRI of the cervical and thoracic spinal cord normal November 2020 per my review. Assessment & Plan (11/25/2021 5:54 PM CDT): Mayzent 1 mg daily. CYP2C9 *1/*3. Risks discussed including cryptococcal meningitis and PML. Increased risk of serious complications including pneumonia and possibly if develops COVID-19 reinfection discussed. She completed her 2nd Moderna COVID-19 vaccine on July 14, 2020. Bivalent booster vaccination recommended. She understands Mayzent may reduce the efficacy of a COVID-19 vaccine and potentially she may not be protected. Paxlovid advised if she develops COVID-19 again. Vitamin D3 supplement 5000 IU Never tried Provigil for fatigue as previously prescribed. Will avoid Provigil since CYP2C9 *1/*3 and on Mayzent. Cymbalta 60 mg at night for paresthesias For burning back pain, increase gabapentin to 300-600 mg every 8 hours as needed. Exercise encouraged MRI brain only November 2022. MRI of the cervical and thoracic spinal cord normal November 2020 per my review. Assessment & Plan (05/27/2021 5:09 PM CDT): Mayzent 1 mg daily. CYP2C9 *1/*3. Risks discussed including cryptococcal meningitis and PML. Increased risk of serious complications including pneumonia and possibly if develops COVID-19 infection discussed. She completed her 2nd Moderna COVID-19 vaccine on July 14, 2020. Booster vaccination recommended.. She understands Mayzent may reduce the efficacy of a COVID-19 vaccine and potentially she may not be protected. Paxlovid advised if she develops COVID-19. Vit D3 supplement 5000 IU Never tried Provigil for fatigue as previously prescribed. Will avoid Provigil since CYP2C9 *1/*3 and on Mayzent. Cymbalta 60 mg at night for paresthesias For burning back pain, increase gabapentin to 300-600 mg every 8 hours as needed. Exercise encouraged Assessment & Plan (05/17/2020 7:23 AM CDT): Mayzent. CYP2C9 *1/*3. Risks discussed including cryptococcal meningitis and PML. Increased risk of serious complications if develops coronavirus infection (COVID-19) discussed including pneumonia and possibly . Patient maintaining social distancing and wearing a mask. COVID-19 mRNA vaccination recommended. She understands Mayzent may reduce the efficacy of a COVID-19 vaccine and potentially she may not be protected. Vit D3 supplement 5000 IU Nuvigil 150 mg prescribed but not tried yet for fatigue. Will avoid Provigil since CYP2C9 *1/*3 and on Mayzent. Cymbalta 90 mg at night for paresthesias Exercise encouraged Assessment & Plan (12/02/2019 12:15 PM CDT): Gilenya. Risks discussed including cryptococcal meningitis and PML. Due to increasing risk of serious opportunistic infection or COVID-19 infection complication based on age, will switch to Mayzent from Gilenya since Mayzent has a shorter half-life. The benefits and risks of Mayzent were discussed including bradycardia, heart block, hypertension, macular edema, serious infections (including PML/cryptococcal meningitis), pulmonary/hepatic toxicity, basal carcinoma and even . Baseline assessments will be performed including ECG, OCT and CYP2C9 genotyping. Increased risk of serious complications if develops coronavirus infection (COVID-19) discussed including pneumonia and possibly . Patient maintaining social distancing and wearing a mask. Vit D3 supplement 5000 IU For severe fatigue, start Provigil 100-200 mg daily. Risks discussed including headache and rash. Cymbalta 90 mg at night for paresthesias Exercise encouraged Assessment & Plan (04/20/2019 2:38 PM CREDIT PROCESSOR): Manas. Risks discussed including cryptococcal meningitis and PML (28 cases; likely higher risk based on age over 50). Pt wants to continue. Vit D3 supplement 5000 IU For severe fatigue, start Provigil 100-200 mg daily. Risks discussed including headache and rash. MRI brain and cervical spine July 2019 Cymbalta 90 mg at night for paresthesias Exercise encouraged Assessment & Plan (10/19/2018 5:30 PM CDT): Manas. Risks discussed including cryptococcal meningitis and PML (26 cases; likely higher risk based on age over 50). Pt wants to continue. Vit D3 supplement 5000 IU For severe fatigue, start Provigil 100-200 mg daily. Risks discussed including headache and rash. MRI brain and cervical spine July 2019 Cymbalta for paresthesias Exercise encouraged Assessment & Plan (03/25/2018 7:01 PM CREDIT PROCESSOR): Manas. Risks discussed including cryptococcal meningitis and PML (21 cases; likely higher risk based on age over 50). Pt wants to continue. Vit D3 supplement 5000 IU MRI brain and cervical spine July 2019 Cymbalta for paresthesias Exercise encouraged Assessment & Plan (10/12/2017 5:58 PM CDT): Manas. Risks discussed including cryptococcal meningitis and PML (21 cases; likely higher risk based on age over 50). Pt wants to continue. Try meclizine 12.5 to 25 mg every 8 hours as needed. Vit D3 supplement MRI brain and cervical spine July 2019 Cymbalta for paresthesias Exercise encouraged Assessment & Plan (03/22/2017 7:49 AM CREDIT PROCESSOR): Gilenya. Risks discussed including cryptococcal meningitis and PML (15 cases; likely higher risk based on age over 50). Pt wants to continue. Try meclizine 12.5 to 25 mg every 8 hours as needed. Vit D3 supplement (on 5000 IU 6 days a week and 10,000 IU once a week) MRI brain June 2007 Cymbalta for paresthesias MRI brain June 2017 Assessment & Plan (09/16/2016 7:49 AM CDT): Jeanenya. Risks discussed incl PML (13 cases); likely higher risk based on age over 50. Pt wants to continue. Vit D supplement MRI brain June 2007 Cymbalta for paresthesias Migraine with aura and witho ut status migrainosus, not intractable 11/08/2013 Overview (05/22/2016): Migraine with aura Assessment & Plan (04/22/2023 6:53 AM CREDIT PROCESSOR): Topamax 100 mg at night, but may be contributing to cognitive issues. 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 Never tried Qulipta due to high [id number] costs. Avoid verapamil and propranolol on Mayzent due to risk of bradycardia. Rizatriptan PATIENT ACCOUNTS COORDINATOR 5 mg prn (10 mg made her drowsy) Triggers discussed including red wine. Assessment & Plan (10/18/2022 3:07 PM CDT): Topamax 100 mg at night, but may be contributing to cognitive issues. 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 Never tried Qulipta due to high [id number] costs. Avoid verapamil and propranolol on Mayzent due to risk of bradycardia. Rizatriptan PATIENT ACCOUNTS COORDINATOR 5 mg prn (10 mg made her drowsy) Triggers discussed including red wine. Assessment & Plan (06/03/2022 10:03 AM CDT): Qulipta 30 mg daily. Risks discussed including nausea, constipation and fatigue. If excellent response to Qulipta, can wean Topamax 100 mg at night which could be contributing to cognitive issues. 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 Maxalt PATIENT ACCOUNTS COORDINATOR 5 mg prn (10 mg made her drowsy) Triggers discussed including red wine. Assessment & Plan (11/25/2021 5:55 PM CDT): Topamax 100 mg at night. Never tried Aimovig Avoid verapamil and propranolol on Gilenya due to risk of bradycardia. Maxalt PATIENT ACCOUNTS COORDINATOR 5 mg prn (10 mg made her drowsy) Triggers discussed including red wine Assessment & Plan (05/27/2021 5:07 PM CDT): Decrease Topamax to 50 mg at night to see if helps cognition. Did not try Aimovig due to decreasing frequency of migraines Avoid verapamil and propranolol on Gilenya due to risk of bradycardia. Maxalt PATIENT ACCOUNTS COORDINATOR 5 mg prn (10 mg made her drowsy) Triggers discussed including red wine Assessment & Plan (05/17/2020 7:23 AM CDT): Topamax 100 mg qhs Did not try Aimovig due to decreasing frequency of migraines Avoid verapamil and propranolol on Gilenya due to risk of bradycardia. Maxalt PATIENT ACCOUNTS COORDINATOR 5 mg prn (10 mg made her drowsy) Triggers discussed including red wine Assessment & Plan (12/02/2019 12:13 PM CDT): Topamax 100 mg qhs Did not try Aimovig due to decreasing frequency of migraines Avoid verapamil and propranolol on Gilenya due to risk of bradycardia. Maxalt PATIENT ACCOUNTS COORDINATOR 5 mg prn (10 mg made her drowsy) Triggers discussed including red wine Assessment & Plan (04/20/2019 2:39 PM CREDIT PROCESSOR): Topamax 100 mg qhs Filled Aimovig prescription, but did not start. At this point, her headache frequency has decreased will hold off on starting Aimovig. Avoid verapamil and propranolol on Gilenya due to risk of bradycardia. Maxalt PATIENT ACCOUNTS COORDINATOR 5 mg prn (10 mg made her drowsy) Triggers discussed including red wine Assessment & Plan (10/19/2018 5:29 PM CDT): Topamax 100 mg qhs Start Aimovig 70 mg. Risks discussed including allergic reactions, injection site reactions, cramping, and constipation. Avoid verapamil and propranolol on Gilenya due to risk of bradycardia. Maxalt PATIENT ACCOUNTS COORDINATOR 5 mg prn (10 mg made her drowsy) Triggers discussed incl red wine Assessment & Plan (03/25/2018 6:59 PM CREDIT PROCESSOR): Decrease Topamax from 150 mg qhs to 100 mg qhs to see if cognitive improves. Adding nortriptyline next option. Avoid verapamil and propranolol on Gilenya due to risk of bradycardia. Potential option of CGRP therapy discussed. Maxalt PATIENT ACCOUNTS COORDINATOR 5 mg prn (10 mg made her drowsy) Triggers discussed incl red wine Assessment & Plan (10/12/2017 5:59 PM CDT): Topamax 150 mg qhs Maxalt PATIENT ACCOUNTS COORDINATOR 5 mg prn (10 mg made her drowsy) Triggers discussed incl red wine Assessment & Plan (03/22/2017 7:46 AM CREDIT PROCESSOR): Topamax 150 mg qhs Maxalt PATIENT ACCOUNTS COORDINATOR 10 mg prn Triggers discussed incl red wine Assessment & Plan (09/16/2016 7:49 AM CDT): Topamax 150 mg qhs Maxalt PATIENT ACCOUNTS COORDINATOR 10 mg prn Triggers discussed incl red wine Resolved Problems Problem Noted Date Diagnosed Date Resolved Date Moderate recurrent major depression 12/02/2019 10/18/2022 Assessment & Plan (11/25/2021 5:56 PM CDT): Cymbalta 60 mg nightly Buspirone 15 mg twice a day Xanax 0.25 mg prn Assessment & Plan (05/27/2021 5:08 PM CDT): Cymbalta 60 mg nightly Buspirone 15 mg twice a day Xanax 0.25 mg prn Previous psychiatrist: Dr. Valles Assessment & Plan (05/17/2020 7:24 AM CDT): Cymbalta 90 mg q.h.s. Buspirone 15 mg 3 times a day Abilify 10 mg at night Xanax 0.25 mg prn Psychiatry follow-up with Dr. Valles Assessment & Plan (12/02/2019 12:14 PM CDT): Cymbalta 90 mg q.h.s. Buspirone 15 mg 3 times a day Abilify 10 mg at night Xanax 0.25 mg prn Psychiatry follow-up with Dr. Valles Primary insomnia 09/15/2016 10/19/2018 Assessment & Plan (03/25/2018 7:00 PM CREDIT PROCESSOR): Melatonin qhs prn Assessment & Plan (10/12/2017 6:02 PM CDT): Melatonin qhs prn Assessment & Plan (03/22/2017 7:46 AM CREDIT PROCESSOR): Melatonin qhs prn Assessment & Plan (09/16/2016 7:50 AM CDT): Melatonin qhs prn Benadryl caused excessive sedation. Encounters Date Type Department Care Team Description 02/05/2024 6:35 PM CREDIT PROCESSOR - 02/05/2024 11:59 PM CREDIT PROCESSOR Hospital Encounter [facility] [address] [place] [id number] Breast pain Discharge Disposition: Discharge to home or self care 01/21/2024 Orders Only [facility] [address] [place] [phone] Zo Petersen NP Breast pain (Primary Dx) 01/21/2024 Orders Only [facility] [address] [place] [phone] Zo Petersen NP Breast pain (Primary Dx) 01/20/2024 Telephone [facility] [address] [place] [phone] Smiley Steiner RN 01/13/2024 [address]phone [id number] [place] [address] Usha English, MOOKIE Appointment Request from Last 3 Months Immunizations Name Administration Dates Next Due Influenza, Quadrivalent, Split, Intramuscular ,12/07/2013 Influenza, Quadrivalent, Spl it, Preservative Free, Intramuscular 10/27/2019 Influenza, Trivalent, IM (MDV) 12/29/2012 Influenza, Trivalent, Preservative Free, Intramu scular 10/18/2014 Pneumococcal Conjugate PCV 13 07/27/2019 Tdap 03/13/2010 Varicella 01/18/2014,12/16/2013 ZOSTER Recombinant 10/27/2019,07/29/2019 Surgical History Surgery Date Site/Laterality Comments HYSTERECTOMY BREAST BIOPSY 02/16/1997 - 02/15/1998 Left negative BREAST LUMPECTOMY 02/16/1997 - 02/15/1998 Left benign Family History Medical History Relation Name Comments Heart attack Father heart attack; Breast cancer Mother Cancer, breast ; Relation Name Status Comments Father Mother Alive Social History Tobacco Use Types Packs/Day Years Used Date Smoking Tobacco: Every Day Vaping Smokeless Tobacco: Current Tobacco Cessation:Ready to Q uit: Not Asked; Counseling Given: Not Answered Alcohol Use Standard Drinks/Week Comments No 0 (1 standard drink = 0.6 oz pur e alcohol) Occassionally vapes Comments No Sex and Gender Information Value Date Recorded Sex Assigned at Not on file Legal Sex Female 9:40 AM CREDIT PROCESSOR Gender Identity Female 08/23/2019 6:30 PM CDT Sexual Orientation Straight 08/23/2019 6: 30 PM CDT Obstetrics History Para Term AB IAB SAB Ectopic Multiple Livin g Live Births 2 2 2 Date Outcome GA Total Labor Labor/2nd/3rd Weight Sex Type Anes PTL Reyna A1 A5 Name Clin Term Term Last Filed Vital Signs Vital Sign Reading Time Taken Comments Blood Pressure 110/72 04/21/2023 12:50 PM CREDIT PROCESSOR Pulse 88 04/21/2023 12:50 PM CREDIT PROCESSOR Temperature 36.2 ??C (97.1 ??F) 04/21/2023 12:[address] Respiratory Rate 16 12/02/2019 11:26 AM CDT Oxygen Saturation 99% 04/21/2023 12:50 PM CREDIT PROCESSOR Inhaled Oxygen Concentration - - Weight 74 kg (163 lb 1.6 oz) 04/21/2023 12:50 PM CREDIT PROCESSOR Height 172.7 cm (5' 8 ) 04/21/2023 12:50 PM CREDIT PROCESSOR Body Mass Index 24.8 04/21/2023 12:50 PM CREDIT PROCESSOR Plan of Treatment Health Maintenance Due Date Last Done Comments Colon Cancer Screening-Colonoscopy 1965 Depression Screening 1965 Hepatitis C Screening 1965 Hepatitis B Screening 1982 Regular Well Visit/Exam 18-64 1982 Pneumococcal vaccine <65 (2 of 2 - PPSV23 or PCV20) 09/21/2019 07/27/2019 DTaP/Tdap/Td Vaccine (2 - Td or Tdap) 03/13/2020 03/13/2010 Breast Cancer Screening-Mammogram 06/03/2023 023, 08/08/2019 Covid-19 Vaccine (3 - 2023-2 5 season) 2023 07/14/2020, 06/16/2020 Zoster Vaccine Completed 10/27/2019, 07/29/2019 Influenza Vaccine Completed 10/30/2023, , 10/27/2019, Additional history exists Procedures Procedure Name Priority Date/Time Associated Diagnosis Comments BREAST IMAGING OUTSIDE CONSULT Routine 02/05/2024 6:36 PM CREDIT PROCESSOR Breast pain SCREENING MAMMOGRAM BILATERAL W CARMELO Schedule Routine, Read Routine (OP Routine) 06/02/2022 4:35 PM CDT Screening mammogram, encounter for from Last 3 Months or Most Recently Relevant to Health Maintenance Results * Breast Imaging Outside Consult (02/05/2024 6:36 PM CREDIT PROCESSOR) Anatomical Region Laterality Modality Breast N/A Mammography 02/08/2024 8:22 AM CREDIT PROCESSOR Impressions 02/08/2024 8:59 AM CREDIT PROCESSOR This study was initially nominated as a consult on outside images via Image Sharing Service. However, a consult was not performed because study was performed more than 6 months ago. Accordingly, there will be no separate report of this study generated by a [facility] Radiologist. Dictated by: Mary Nava M.D. The radiology attending physician has personally reviewed this study, and had reviewed and/or edited this written report and agrees with it. Electronically signed by: Fatemeh Scott M.D. Narrative 02/08/2024 8:59 AM CREDIT PROCESSOR EXAMINATION: ??CHANGE CONSULT ON OUTSIDE IMAGES TO REFERENCE IMAGES Procedure Note Fatemeh Scott MD - 02/08/2024 EXAMINATION: CHANGE CONSULT ON OUTSIDE IMAGES TO REFERENCE IMAGES IMPRESSION: This study was initially nominated as a consult on outside images via Image Sharing Service. However, a consult was not performed because study was performed more than 6 months ago. Accordingly, there will be no separate report of this study generated by a [facility] Radiologist. Dictated by: Mary Nava M.D. The radiology attending physician has personally reviewed this study, and had reviewed and/or edited this written report and agrees with it. Electronically signed by: Fatemeh Scott M.D. Zo Petersen LABORER/KEY MAN IMG MAMMO PROCEDURES Fi nal Result * Screening Mammogram Bilateral W Carmelo (06/02/2022 4:35 PM CDT) Anatomical Region Laterality Modality Breast Bilateral Mammography 06/03/2022 9:03 AM CDT Impressions 06/03/2022 9:03 AM CDT No evidence of malignancy in either breast. FINAL ASSESSMENT: BI-RADS Category 2: Benign. RECOMMENDATION: Recommend return for annual screening mammogram in 12 months. ?? Electronically signed by: Jelena Jackson M.D. Narrative 06/03/2022 9:03 AM CDT EXAMINATION: BILATERAL SCREENING MAMMOGRAM COMPARISON: Multiple prior studies, most recently [facility] 06/24/2021 and dating back to 03/07/2015. TECHNIQUE: Full-field 2D and digital breast tomosynthesis (DBT) images were obtained. CAD was utilized. BREAST PARENCHYMAL COMPOSITION: ??There are scattered areas of fibroglandular density. FINDINGS: There is no suspicious mass, calcification, or distortion in either breast. There has been no significant interval change from the prior study. ??Stable nodule is seen in the left breast. us Self Screening Mammogram IMG MAMMO PROCEDURES Fi nal Result from Last 3 Months or Most Recently Relevant to Health Maintenance Insurance [employer] MEDICARE HMO [facility] MEDICARE O [employer] MEDICARE HMO Care Teams Brake Tester Relationship Specialty Start Date End Date Melba Garcia MD [address] [place] [address] PCP - General 04/24/08 Elizabeth Diamond NP [address] [place] [address] Nurse Practitioner Nurse Practitioner 05/30/21 Usha English, MOOKIE [address] [place] [address] Nurse Practitioner Obstetrics and Gynecology 01/12/24
--- OUTSIDE RECORDS SUMMARY | 2024-03-14 13:02 | XMS_ITS | Encounter Summary ---
Author Organization [facility] Healthcare Address [address] [place] [address] Care Team Providers Care Cargo Services Coordinator Name Role Phone Melba Garcia MD Primary Care Provider [phone] Reason for Visit * Diagnostic Imaging (Routine) - Closed Specialty Diagnoses / Procedures Referred By Kilo marion Referred To Contact Procedures Breast Imaging Screening Outside Reference Yanira Maher NP Phone: tel: fax: Referral ID Status Reason Start Date Expiration Date Visits Re quested Visits Authorized [id number] Closed 06/03/2021 07/03/2022 1 1 Encounter Details Date Type Department Care Team (Late st Contact Info) Description 06/03/2018 Hospital Encounter [facility] [address] [place] [phone] Social History Tobacco Use Types Packs/Day Years Used Date Smoking Tobacco: Every Day Vaping Smokeless Tobacco: Current Alcohol Use Standard Drinks/Week Comments No 0 (1 standard drink = 0.6 oz pur e alcohol) Occassionally vapes Comments No Sex and Gender Information Value Date Recorded Sex Assigned at Not on file Legal Sex Female 9:40 AM TELEGRAPHIC 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 OPERATOR Gender Identity Female 08/23/2019 6:30 PM CDT Sexual Orientation Straight 08/23/2019 6: 30 PM CDT documented as of this encounter Plan of Treatment Not on file documented as of this encounter Procedures Procedure Name Priority Date/Time Associated Diagnosis Comments BREAST IMAGING MG SCREENING OUTSIDE REFERENCE Routine 06/03/2018 12:00 AM CDT documented in this encounter Results * Breast Imaging Screening Outside Reference (06/03/2018 12:00 AM CDT) Impressions [facility]_MAMMO_[facility] - 06/03/2021 11:15 AM CDT These images are for Reference purposes only and have not been reviewed by [facility] Radiology. ??There will be no report generated by a [facility] Radiologist. Narrative RAD_MAMMO_[facility] - 06/03/2021 11:15 AM CDT EXAMINATION: ??Images For Reference Purposes Only us Yanira Maher VALIDATION MANAGER IMG MAMMO PROCEDURES Fin al Result [facility]_MAMMO[facility] documented in this encounter Visit Diagnoses Not on filedocumented in this encounter Care Teams Cargo Services Coordinator Relationship Specialty Start Date End Date Melba Garcia MD [address] [place] [address] PCP - General 04/24/08 documented as of this encounter
--- OUTSIDE RECORDS SUMMARY | 2024-03-14 13:02 | XMS_ITS | Encounter Summary ---
Author Organization [facility] Healthcare Address [address] [place] [address] Care Team Providers Care Sound Controller Name Role Phone Melba Garcia MD Primary Care Provider [phone] Reason for Visit * Diagnostic Imaging (Routine) - Closed Specialty Diagnoses / Procedures Referred By Kilo marion Referred To Contact Procedures Breast Imaging Diagnostic Outside Reference Yanira Maher NP Phone: tel: fax: Referral ID Status Reason Start Date Expiration Date Visits Re quested Visits Authorized [id number] Closed 06/03/2021 07/03/2022 1 1 Encounter Details Date Type Department Care Team (Late st Contact Info) Description 05/25/2017 Hospital Encounter [facility]iology [facility] [address] [place] [id number] Social History Tobacco Use Types Packs/Day Years Used Date Smoking Tobacco: Every Day Vaping Smokeless Tobacco: Current Alcohol Use Standard Drinks/Week Comments No 0 (1 standard drink = 0.6 oz pur e alcohol) Occassionally vapes Comments No Sex and Gender Information Value Date Recorded Sex Assigned at Not on file Legal Sex Female 9:40 AM 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 INTERN Gender Identity Female 08/23/2019 6:30 PM CDT Sexual Orientation Straight 08/23/2019 6: 30 PM CDT documented as of this encounter Plan of Treatment Not on file documented as of this encounter Procedures Procedure Name Priority Date/Time Associated Diagnosis Comments BREAST IMAGING MG DIAGNOSTIC OUTSIDE REFERENCE Routine 05/25/2017 12:00 AM CDT documented in this encounter Results * Breast Imaging Diagnostic Outside Reference (05/25/2017 12:00 AM CDT) Impressions RAD_MAMMO[facility] - 06/03/2021 11:16 AM CDT These images are for Reference purposes only and have not been reviewed by [facility] Radiology. ??There will be no report generated by a [facility] Radiologist. Narrative RAD_MAMMO_[facility] - 06/03/2021 11:16 AM CDT EXAMINATION: ??Images For Reference Purposes Only us Yanira Maher SUPERVISOR REINFORCED STEEL PLACING IMG MAMMO PROCEDURES Fin al Result [facility]MAMMO[facility] documented in this encounter Visit Diagnoses Not on filedocumented in this encounter Care Teams Sound Controller Relationship Specialty Start Date End Date Melba Garcia MD [address] [place] [address] PCP - General 04/24/08 documented as of this encounter
--- OUTSIDE RECORDS SUMMARY | 2024-03-14 13:02 | XMS_ITS | Referral Summary ---
Author Organization [facility] Address [address] [place] [address] Care Team Providers Care Program Eligibility Specialist Name Role Phone Melba Garcia MD Primary Care Provider Elizabeth Diamond CHIEF MEDICAL TECHNOLOGIST Unavailable [phone] Usha English CHIEF MEDICAL TECHNOLOGIST Unavailable Encounters Date Type Department Care Team Description 02/05/2024 6:35 PM MANAGER FINANCIAL SYSTEMS - 02/05/2024 11:59 PM MANAGER FINANCIAL SYSTEMS Hospital Encounter [facility] ([facility]) [address] [place] [id number] Breast pain Discharge Disposition: Discharge to home or self care 01/21/2024 Orders Only [facility] Surgery [address] [place] [phone] Zo Petersen NP Breast pain (Primary Dx) 01/21/2024 Orders Only [facility] Surgery [address] [place] [phone] Zo Petersen NP Breast pain (Primary Dx) 01/20/2024 Telephone [facility] Surgery [address] [place] [address] [place] [phone] Smiley Steiner RN 01/13/[address] [facility] [address] [place] [address] Usha English NP Appointment Request from Last 3 Months Allergies Active Allergy Reactions Criticality Noted Date [...] for dizziness 360 tablet 3 Active karley cbxl-dhakzrfn-lwq olenic ac 1,000 mg capsule Active busPIRone [...] 06/03/2022 Assessment & Plan (04/22/2023 6:53 AM MANAGER FINANCIAL SYSTEMS): Bouts of spinning sensation lasting up to [...] 11/25/2021 Assessment & Plan (04/22/2023 6:55 AM MANAGER FINANCIAL SYSTEMS): July 2021 Fever up to 103?? F, [...] 03/22/2017 Assessment & Plan (04/22/2023 6:53 AM MANAGER FINANCIAL SYSTEMS): Non-pharmacologic management discussed. Assessment & Plan (10/18/2022 [...] management Assessment & Plan (04/20/2019 2:40 PM MANAGER FINANCIAL SYSTEMS): Non-pharmacologic management Assessment & Plan (10/19/2018 5:31 PM CDT): Non-pharmacologic management Assessment & Plan (03/25/2018 7:00 PM MANAGER FINANCIAL SYSTEMS): Nonpharmacologic management. Assessment & Plan (10/12/2017 6:01 PM CDT): Nonpharmacologic management. Assessment & Plan (03/22/2017 7:50 AM MANAGER FINANCIAL SYSTEMS): Nonpharmacologic management. Moderate recurrent major depression 09/15/2016 Assessment & Plan (04/22/2023 6:54 AM MANAGER FINANCIAL SYSTEMS): Cymbalta 60 mg twice a day Buspirone [...] evaluation. Assessment & Plan (04/20/2019 2:40 PM MANAGER FINANCIAL SYSTEMS): Cymbalta 90 mg q.h.s. Buspirone 15 mg 3 times a day Abilify 10 mg at night Xanax 0.25 mg prn Psychiatry follow-up with Dr. Valles Assessment & Plan (10/19/2018 5:30 PM CDT): Cymbalta 90 mg q.h.s. Buspirone Abilify Xanax prn Psychiatry follow-up with Dr. Valles Assessment & Plan (03/25/2018 6:59 PM MANAGER FINANCIAL SYSTEMS): Cymbalta 90 mg q.h.s. Buspirone Abilify Xanax prn Psychiatry follow-up with Dr. Valles Assessment & Plan (10/12/2017 6:01 PM CDT): Cymbalta 90 mg q.h.s. Buspirone Abilify Xanax prn Psychiatry follow-up Starting counseling Assessment & Plan (03/22/2017 7:46 AM MANAGER FINANCIAL SYSTEMS): Cymbalta Buspirone Abilify Xanax prn Psychiatry follow-up Assessment & Plan (09/16/2016 7:50 AM CDT): Cymbalta Buspirone Abilify Xanax prn Psychiatry follow-up Multiple sclerosis 11/08/2013 Overview (03/27/2020): Multiple sclerosis DMT history ASSESS trial Copaxone vs Gilenya 0.25 [id number] Gilenya 0.5 mg 08/01/2015-current Mayzent (CYP2C9 *1/*3) 1mg dose: 02/18/2020- Assessment & Plan (04/22/2023 6:52 AM MANAGER FINANCIAL SYSTEMS): Periventricular and juxtacortical white matter lesions. No [...] Assessment & Plan (12/02/2019 12:15 PM CDT): Manas. Risks discussed including cryptococcal meningitis and PML. [...] encouraged Assessment & Plan (04/20/2019 2:38 PM MANAGER FINANCIAL SYSTEMS): Manas. Risks discussed including cryptococcal meningitis and [...] encouraged Assessment & Plan (03/25/2018 7:01 PM MANAGER FINANCIAL SYSTEMS): Manas. Risks discussed including cryptococcal meningitis and [...] encouraged Assessment & Plan (03/22/2017 7:49 AM MANAGER FINANCIAL SYSTEMS): Manas. Risks discussed including cryptococcal meningitis and [...] Assessment & Plan (09/16/2016 7:49 AM CDT): Manas. Risks discussed incl PML (13 cases); likely higher risk based on age over 50. Pt wants to continue. Vit D supplement MRI brain June 2007 Cymbalta for paresthesias Migraine with aura and witho ut status migrainosus, not intractable 11/08/2013 Overview (05/22/2016): Migraine with aura Assessment & Plan (04/22/2023 6:53 AM MANAGER FINANCIAL SYSTEMS): Topamax 100 mg at night, but may be contributing to cognitive issues. 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 Never tried Qulipta due to high bcp-nh-hjjqfc costs. Avoid verapamil and propranolol on Mayzent due to risk of bradycardia. Rizatriptan MOTORCYCLE RACER 5 mg prn (10 mg made her drowsy) Triggers discussed including red wine. Assessment & Plan (10/18/2022 3:07 PM CDT): Topamax 100 mg at night, but may be contributing to cognitive issues. 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 Never tried Qulipta due to high xft-us-dlkxku costs. Avoid verapamil and propranolol on Mayzent due to risk of bradycardia. Rizatriptan MOTORCYCLE RACER 5 mg prn (10 mg made her [...] Gilenya due to risk of bradycardia. Maxalt MOTORCYCLE RACER 5 mg prn (10 mg made her drowsy) Triggers discussed including red wine. Assessment & Plan (11/25/2021 5:55 PM CDT): Topamax 100 mg at night. Never tried Aimovig Avoid verapamil and propranolol on Gilenya due to risk of bradycardia. Maxalt MOTORCYCLE RACER 5 mg prn (10 mg made her drowsy) Triggers discussed including red wine Assessment & Plan (05/27/2021 5:07 PM CDT): Decrease Topamax to 50 mg at night to see if helps cognition. Did not try Aimovig due to decreasing frequency of migraines Avoid verapamil and propranolol on Gilenya due to risk of bradycardia. Maxalt MOTORCYCLE RACER 5 mg prn (10 mg made her drowsy) Triggers discussed including red wine Assessment & Plan (05/17/2020 7:23 AM CDT): Topamax 100 mg qhs Did not try Aimovig due to decreasing frequency of migraines Avoid verapamil and propranolol on Gilenya due to risk of bradycardia. Maxalt MOTORCYCLE RACER 5 mg prn (10 mg made her drowsy) Triggers discussed including red wine Assessment & Plan (12/02/2019 12:13 PM CDT): Topamax 100 mg qhs Did not try Aimovig due to decreasing frequency of migraines Avoid verapamil and propranolol on Gilenya due to risk of bradycardia. Maxalt MOTORCYCLE RACER 5 mg prn (10 mg made her drowsy) Triggers discussed including red wine Assessment & Plan (04/20/2019 2:39 PM MANAGER FINANCIAL SYSTEMS): Topamax 100 mg qhs Filled Aimovig prescription, but did not start. At this point, her headache frequency has decreased will hold off on starting Aimovig. Avoid verapamil and propranolol on Gilenya due to risk of bradycardia. Maxalt MOTORCYCLE RACER 5 mg prn (10 mg made her drowsy) Triggers discussed including red wine Assessment & Plan (10/19/2018 5:29 PM CDT): Topamax 100 mg qhs Start Aimovig 70 mg. Risks discussed including allergic reactions, injection site reactions, cramping, and constipation. Avoid verapamil and propranolol on Gilenya due to risk of bradycardia. Maxalt MOTORCYCLE RACER 5 mg prn (10 mg made her drowsy) Triggers discussed incl red wine Assessment & Plan (03/25/2018 6:59 PM MANAGER FINANCIAL SYSTEMS): Decrease Topamax from 150 mg qhs to 100 mg qhs to see if cognitive improves. Adding nortriptyline next option. Avoid verapamil and propranolol on Gilenya due to risk of bradycardia. Potential option of CGRP therapy discussed. Maxalt MOTORCYCLE RACER 5 mg prn (10 mg made her drowsy) Triggers discussed incl red wine Assessment & Plan (10/12/2017 5:59 PM CDT): Topamax 150 mg qhs Maxalt MOTORCYCLE RACER 5 mg prn (10 mg made her drowsy) Triggers discussed incl red wine Assessment & Plan (03/22/2017 7:46 AM MANAGER FINANCIAL SYSTEMS): Topamax 150 mg qhs Maxalt MOTORCYCLE RACER 10 mg prn Triggers discussed incl red wine Assessment & Plan (09/16/2016 7:49 AM CDT): Topamax 150 mg qhs Maxalt MOTORCYCLE RACER 10 mg prn Triggers discussed incl red [...] 10/19/2018 Assessment & Plan (03/25/2018 7:00 PM MANAGER FINANCIAL SYSTEMS): Melatonin qhs prn Assessment & Plan (10/12/2017 6:02 PM CDT): Melatonin qhs prn Assessment & Plan (03/22/2017 7:46 AM MANAGER FINANCIAL SYSTEMS): Melatonin qhs prn Assessment & Plan (09/16/2016 7:50 AM CDT): Melatonin qhs prn Benadryl caused excessive sedation. Immunizations Name Administration Dates Next Due Influenza, Quadrivalent, Split, Intramuscular ,12/07/2013 Influenza, Quadrivalent, Spl it, Preservative Free, Intramuscular 10/27/2019 Influenza, Trivalent, IM (MDV) 12/29/2012 Influenza, Trivalent, Preservative Free, Intramu scular 10/18/2014 Pneumococcal Conjugate PCV 13 07/27/2019 Tdap 03/13/2010 Varicella 01/18/2014,12/16/2013 ZOSTER Recombinant 10/27/2019,07/29/2019 Social History Tobacco Use Types Packs/Day Years [...] on file Legal Sex Female 9:40 AM MANAGER FINANCIAL SYSTEMS Gender Identity Female 08/23/2019 6:30 PM CDT Sexual Orientation Straight 08/23/2019 6: 30 PM CDT Last Filed Vital Signs Vital Sign Reading Time Taken Comments Blood Pressure 110/72 04/21/2023 12:50 PM MANAGER FINANCIAL SYSTEMS Pulse 88 04/21/2023 12:50 PM MANAGER FINANCIAL SYSTEMS Temperature 36.2 ??C (97.1 ??F) 04/21/2023 12:[address] Respiratory Rate 16 12/02/2019 11:26 AM CDT Oxygen Saturation 99% 04/21/2023 12:50 PM MANAGER FINANCIAL SYSTEMS Inhaled Oxygen Concentration - - Weight 74 kg (163 lb 1.6 oz) 04/21/2023 12:50 PM MANAGER FINANCIAL SYSTEMS Height 172.7 cm (5' 8 ) 04/21/2023 12:50 PM MANAGER FINANCIAL SYSTEMS Body Mass Index 24.8 04/21/2023 12:50 PM MANAGER FINANCIAL SYSTEMS Plan of Treatment Not on file Procedures Procedure Name Priority Date/Time Associated Diagnosis Comments BREAST IMAGING OUTSIDE CONSULT Routine 02/05/2024 6:36 PM MANAGER FINANCIAL SYSTEMS Breast pain SCREENING MAMMOGRAM BILATERAL W CARMELO Schedule Routine, Read Routine (OP Routine) 06/02/2022 4:35 PM CDT Screening mammogram, encounter for from Last 3 Months or Most Recently Relevant to Health Maintenance Results * Breast Imaging Outside Consult (02/05/2024 6:36 PM MANAGER FINANCIAL SYSTEMS) Anatomical Region Laterality Modality Breast N/A Mammography 02/08/2024 8:22 AM MANAGER FINANCIAL SYSTEMS Impressions 02/08/2024 8:59 AM MANAGER FINANCIAL SYSTEMS This study was initially nominated as a consult on outside images via Image Sharing Service. However, a consult was not performed because study was performed more than 6 months ago. Accordingly, there will be no separate report of this study generated by a [facility] Radiologist. Dictated by: Mary Nava M.D. The radiology attending physician has personally reviewed this study, and had reviewed and/or edited this written report and agrees with it. Electronically signed by: Fatemeh Scott M.D. Narrative 02/08/2024 8:59 AM MANAGER FINANCIAL SYSTEMS EXAMINATION: ??CHANGE CONSULT ON OUTSIDE IMAGES TO [...] report of this study generated by a [facility] Radiologist. Dictated by: Mary Nava M.D. The radiology attending physician has personally reviewed this study, and had reviewed and/or edited this written report and agrees with it. Electronically signed by: Fatemeh Scott M.D. Zo Petersen NP IMG MAMMO PROCEDURES Fi nal Result * [...] MAMMOGRAM COMPARISON: Multiple prior studies, most recently [facility] 06/24/2021 and dating back to 03/07/2015. [...] Most Recently Relevant to Health Maintenance Insurance [employer] MEDICARE HMO [facility] [place] MEDICARE O [employer] MEDICARE HMO Care Teams Program Eligibility Specialist Relationship Specialty Start Date End Date Melba Garcia MD [address] [place] [address] PCP - General 04/24/08 Elizabeth Diamond NP [address] [place] [address] Nurse Practitioner Nurse Practitioner 05/30/21 Usha English NP [address] [place] [address] Nurse Practitioner Obstetrics and Gynecology 01/12/24
== END 2024-03-14 12:27 | disposition home or self-care (01) ==
PROVIDERS: PCP Internal Medicine; Visit Provider Plastic Surgery
DX: S63.501A Unspecified sprain of right wrist, initial encounter (principal); M67.431 Ganglion, right wrist; X58.XXXA Exposure to other specified factors, initial encounter; M77.8 Other enthesopathies, not elsewhere classified
CPT/HCPCS: 73223; A9577

== ENCOUNTER 2024-06-29 12:57 | Outpatient (CLI) | payer MEDICARE, SELFPAY ==
--- NOTE | ~2024-06-29 | CT_ITS ---
CT Scan of the Chest without Contrast: Clinical Indication: Lung cancer screening, nicotine dependence Technique: Contiguous sections were acquired throughout the chest without intravenous contrast. Dose reduction technique was used on this scan by utilizing automated exposure control and iterative recon struction technique. The dose-length product (DLP) was 57.87 mGy-cm. COMPARISON: 01/27/2023 Findings: There is no evidence of any significant mediastinal, hilar or axillary lymphadenopathy. The mediastin al soft tissues appear normal. There is no evidence of pleural or pericardial effusion. The lungs are clear. No pulmonary nodules or infiltrates are noted. Images through the upper abdomen reveal no abnormalities. Impression: Lung RADS 1: Negative. 12 month follow-up screening CT advised. Reviewed, dictated and finalized at location . Impression: Lung RADS 1: Negative. 12 month follow-up screening CT advised.
== END 2024-06-29 12:58 | disposition home or self-care (01) ==
PROVIDERS: PCP Internal Medicine; Visit Provider Internal Medicine
DX: Z12.2 Encounter for screening for malignant neoplasm of respiratory organs (principal); Z87.891 Personal history of nicotine dependence
CPT/HCPCS: 71271

== ENCOUNTER 2024-08-23 10:00 | Outpatient (CLI) | payer MEDICARE, SELFPAY ==
--- NOTE | ~2024-08-23 | DEXA_ITS ---
Bone Density Report Name: SOFÍA CASTLE Age: 59 Sex: Female Ethnicity: White Date of : 1965 Indication: postmenopausal; screening for osteoporosis; height loss; hysterectomy; Referring Provider: MARIO ALBERTO, ALY Rea Study: Bone densitometry was performed. Exam Date: August 23, 2024 Accession number: [id number] Bone Density: Region BMD T-score Z-score Classification AP Spine(L1-L4) 0.948 -0.9 0.5 Normal Femoral Neck (Left) 0.679 -1.5 -0.2 Osteopenia Total Hip (Left) 0.863 -0.6 0.3 Normal Femoral Neck (Right) 0.660 -1.7 -0.4 Osteopenia Total Hip (Right) 0.824 -1.0 0.0 Normal Total Hip Mean 0.844 -0.8 0.2 Normal World Health Organization criteria for BMD impression classify patients as: Normal (T-score at or above -1.0), Osteopenia (T-score between -1.0 and -2.5), or Osteoporosis (T-score at or below -2.5). 10-year Fracture Risk(1): Major Osteoporotic Fracture 8.5% Hip Fracture 1.4% Reported Risk Factors: [place] (), Neck BMD=0.660, BMI=26.9, smoking (1) FRAX(R) Version 3.08. Fracture probability calculated for an untreated patient. Fracture probability may be lower if the patient has received treatment. Clinical Information Provided by Patient: Smokes Has used the following medications: Vitamin D, Calcium Has the following medical conditions: Hysterectomy Patient maximum height was 69 Menopause Age: 46 No regular weight bearing exercise Drinks caffeinated beverages Onset of menses at age 11 Number of children 2 Impression: The patient has low bone mass, based on the Right Femoral Neck T-score. The patient has an estimated ten-year risk of hip fracture of 1.4% and an estimated ten-year risk of major fracture of 8.5%, based on the WHO FRAX algorithm. The patient has risk factors, including: smoking. Discussion: BONE DENSITY IS LOW AT ONE OR MORE SKELETAL SITES. This patient's lowest T-score is low at one or more skeletal sites. It meets the World Health Organization's (WHO) criteria for ?low bone mass? (T-score between -1.0 and -2.5). The patient's 10-year risk of fracture as calculated by FRAX is less than the threshold where pharmacological therapy is recommended by the National Osteoporosis Foundation (NOF). However, all treatment decisions require clinical judgment and consideration of individual patient factors, including patient preferences, comorbidities, previous drug use, risk factors not captured in the FRAX model (e.g., frailty, falls, vitamin D deficiency, increased bone turnover, interval significant decline in bone density) and possible under or overestimation of fracture risk by FRAX. The patient should follow a healthful lifestyle (good nutrition with adequate calcium and vitamin D, and appropriate weight-bearing exercise). Follow-Up: Consider repeating this study in 2 to 3 years to reassess this patient's status, or sooner if there is some new clinical indication. Reported by: LUZ on 08/23/2024 10:46:00 AM. Reviewed, dictated and finalized at location A.
--- OUTSIDE RECORDS SUMMARY | 2024-08-23 10:05 | XMS_ITS | Encounter Summary ---
Author Organization [facility] Healthcare Address [address] [place] [address] Care Team Providers Care Core Dipper Name Role Phone Melba Garcia MD Primary Care Provider [phone] Reason for Visit * Diagnostic Imaging (Routine) - Closed Specialty Diagnoses / Procedures Referred By Kilo marion Referred To Contact Procedures Breast Imaging Screening Outside Reference Yanira Maher NP Phone: tel: fax: Referral ID Status Reason Start Date Expiration Date Visits Re quested Visits Authorized [id number] Closed 06/03/2021 07/03/2022 1 1 Encounter Details Date Type Department Care Team (Late st Contact Info) Description 05/11/2017 Hospital Encounter [facility] [address] [place] [id number] Social History Tobacco Use Types Packs/Day Years Used Date Smoking Tobacco: Former Cigarettes 1 29 - 2021 Vaping Passive Smoke Exposure: Past Smokeless Tobacco: Never Alcohol Use Standard Drinks/Week Comments No 0 (1 standard drink = 0.6 oz pur e alcohol) Occassionally vapes AUDIT-C Answer Date Recorded Q1: How often do you have a drink containing alcohol? Never 08/17/2024 Q2: How many drinks containi ng alcohol do you have on a typical day when you are drinking? Patient does not drink Q3: How often do you have si x or more drinks on one occasion? 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 Never 08/17/2024 1:18 PM GREYT Kaia Key RN Q2: How many drinks containing alcohol do you have on a typical day when you are drinking? Patient does not drink 08/17/2024 1:18 PM GREYT Kaia Key RN Q3: How often do you have six or more drinks on one occasion? Never 08/17/2024 1:18 PM GREYT Kaia Key RN documented as of this encounter Plan of Treatment Upcoming Encounters Date Type Department Care Team (Latest Contact Info) Description 09/05/2024 8:15 AM CDT Hospital Encounter [facility] [address] [place] [phone] Farrukh Campbell MD [address] [facility] [address] 09/05/2024 8:15 AM CDT - 09/05/2024 9:45 AM CDT Surgery [facility] [address] [place] [phone] Farrukh Campbell MD [address] [facility] [address] RIGHT WRIST ARTHROSCOPY WITH POSSIBLE TRIANGULOFIBROCARTILAGE COMPLEX DEBRIDEMENT Scheduled Procedures Name Priority Associated Diagnoses Date/Ti me ARTHROSCOPY WRIST - TRIANGULOFIBROCARTILAGE COMPLEX REPAIR/DEBRIDEMENT Injury of right wrist, initial encounter Right wrist pain 09/05/2024 8:15 AM CDT documented as of this encounter Procedures Procedure Name Priority Date/Time Associated Diagnosis Comments BREAST IMAGING MG SCREENING OUTSIDE REFERENCE Routine 05/11/2017 12:00 AM CDT documented in this encounter Results * Breast Imaging Screening Outside Reference (05/11/2017 12:00 AM CDT) Impressions RAD_MAMMO[facility] - 06/03/2021 11:16 AM CDT These images are for Reference purposes only and have not been reviewed by [facility]. There will be no report generated by a [facility] Radiologist. 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
--- OUTSIDE RECORDS SUMMARY | 2024-08-23 10:05 | XMS_ITS | Clinical Summary ---
[facility] [address] [place] [address] Care Team Providers Care Psych Therapist Name Role Phone Melba Garcia MD Primary Care Provider Elizabeth Diamond QUALITY FACILITATOR Unavailable [phone] Usha English QUALITY FACILITATOR Unavailable [phone] Allergies Active Allergy Reactions Criticality Noted Date Comments Erythromycin Other (See comments) Medium 09/15/2016 Severe stomach pain Penicillins Hives,Swelling,Rash Medium Sulfa (Sulfonamide Antibiotics) Hives,Swelling,Rash Medium Medications cholecalciferol (VITAMIN D3) 5,000 unit tablet take 1 tablet by oral route every day 0 0 10/11/19 16 Active Additional Information Patient taking differently: 5,000 Units oral Every morning, With 100 mcg K2, Indications: Prevention of Vitamin D Deficiency, Informant: Self, Reported on 08/17/2024 diphenoxylate-at ropine (LOMOTIL) 2.5-0.025 mg per tablet take 2 tablet by oral route 4 times every day as needed 0 0 01/06/20 15 Active Additional Information Patient taking differently: 4 tablet oral Every morning, Indications: diarrhea, Informant: Self, Reported on 08/17/2024 MULTIVIT WITH CALCIUM,IRON,MIN (WOMEN'S DAILY MULTIVITAMIN ORAL)Indications :Vitamin Deficiency Prevention Take 1 tablet by mouth every morning Active CALCIUM ORALIndications: Osteopenia Take 1 tablet by mouth every morning Active docosahexaenoic acid/epa (FISH OIL ORAL)Indications :prevention of heart disease Take 1 capsule by mouth every morning Active meclizine (ANTIVERT) 25 mg tablet Take 1 tablet (25 mg total) by mouth 3 (three) times a day as needed for dizziness 360 tablet 05/01/19 23 Active Additional Information Patient taking differently:25 mg oral 3 times daily PRN, dizziness,NONE IN OVER A MONTh , Indications: Vertigo, Informant: Self, Reported on 08/17/2024 busPIRone (BUSPAR) 15 mg tabletIndication s:Generalized Anxiety Disorder Take 1 tablet (15 mg total) by mouth 3 (three) times a day Active rizatriptan (MAXALT) 10 mg tablet TAKE 1 TABLET DAILY NEEDED FOR MIGRAINE 36 tablet 3 02/11/20 24 Active Additional Information Patient taking differently: 10 mg oral Once as needed (for prescriptions), migraine, Informant: Self, Reported on 08/17/2024 Mayzent 1 mg tabletIndication s:Multiple sclerosis (HCC) Take 1 mg by mouth daily 90 tablet 3 03/23/19 25 Active Additional Information Patient taking differently:1 mg oralEvery morning, Indications: relapsing form of multiple sclerosis, Informant: Self, Reported on 08/17/[address] (CYMBALTA) 60 mg capsule TAKE 1 CAPSULE TWICE DAILY 180 capsule 3 04/13/19 25 Active Additional Information Patient taking differently:60 mg oral 2 times daily,Indications: Anxiety with Depression, Neuropathic Pain, Informant: Self, Reported on 08/17/2024 loperamide (Imodium A-D) 2 mg tabletIndication s:diarrhea Take 2 tablets (4 mg total) by mouth as needed for diarrhea NONE IN OVER A MONTH Active topiramate (TOPAMAX) 100 mg tabletIndication s:Multiple sclerosis (HCC),Migraine with aura and without status migrainosus, not intractable TAKE 1 AND 1/2 TABLETS EVERY NIGHT 135 tablet 3 04/26/19 25 Active Additional Information Patient taking differently: 100 mg oral Nightly, TAKE 1 AND 1/2 TABLETS EVERY NIGHT,Indications: Migraine Prevention, Informant: Self, Reported on 08/17/2024 gabapentin (NEURONTIN) 600 mg tabletIndication s:Multiple sclerosis (HCC) TAKE 1 TABLET EVERY NIGHT 90 tablet 05/31/19 25 Active Additional Information Patient taking differently:600 mg oral Nightly,Indications: Neuropathic Pain, Informant: Self, Reported on 08/17/2024 diazePAM (VALIUM) 2 mg tablet Take 0.5-1 tablets (1-2 mg total) by mouth daily as needed (vertigo) 30 tablet 5 05/31/19 25 Active Additional Information Patient taking differently:1-2 mg oral Daily PRN, vertigo,NONE IN OVER A MONTH , Indications: Vertigo, Informant: Self, Reported on 08/17/2024 terbinafine (LamiSIL) 250 mg tabletIndication s:Onychomycosis Take 1 tablet (250 mg total) by mouth every morning 06/24/19 25 Active diphenhydrAMINE 25 mg capsuleIndicatio ns:Meniere's Disease Take 2 tablet/capsule (50 mg total) by mouth nightly Active cyanocobalamin, vitamin B-12, 500 mcg lozengeIndicatio ns:Prevention of Vitamin B12 Deficiency Take 5,000 mcg by mouth every morning Active vitamin B complex capsuleIndicatio ns:Vitamin Deficiency Prevention Take 1 capsule by mouth every morning Active evening primrose oil 500 mg capsuleIndicatio ns:breast pain Take 1 capsule (500 mg total) by mouth 3 (three) times a day Active cannabidiol, CBD, (medical cannabis) eachIndications: Insomnia as needed NONE IN OVER A MONTH 025 Discontin ued(Thera py completed ) karley ptwa-[id number]-wi molenic ac 1,000 mg capsule 025 Discontin ued(Alter ej therapy) Active Problems Problem Noted Date Diagnosed Date Injury of right wrist 07/20/2024 Right wrist pain 07/20/2024 Vertigo 06/03/2022 Assessment & Plan (04/22/2023 6:53 AM MARINA [employer]Y DOCK MANAGER): Bouts of spinning sensation lasting up to [...] 11/25/2021 Assessment & Plan (04/22/2023 6:55 AM [employer]INA [employer]Y DOCK MANAGER): July 2021 Fever up to 103 F, headache, nasal congestion, sore throat and cough Treated with monoclonal antibody therapy Assessment & Plan (10/18/2022 3:11 PM CDT): July 2021 Fever up to 103 F, headache, nasal congestion, sore throat and cough Treated with monoclonal antibody therapy Assessment & Plan (06/03/2022 10:07 AM CDT): July 2021 Fever up to 103 F, headache, nasal congestion, sore throat and cough Treated with monoclonal antibody therapy Assessment & Plan (11/25/2021 5:57 PM CDT): July 2021 Fever up to 103 F, headache, nasal congestion, sore throat and cough Treated with monoclonal antibody therapy Breast pain 06/24/2021 Neurogenic bladder 03/22/2017 Assessment & Plan (04/22/2023 6:53 AM MARINA [employer]Y DOCK MANAGER): Non-pharmacologic management discussed. Assessment & Plan (10/18/2022 [...] management Assessment & Plan (04/20/2019 2:40 PM MARINA [employer]Y DOCK MANAGER): Non-pharmacologic management Assessment & Plan (10/19/2018 5:31 PM CDT): Non-pharmacologic management Assessment & Plan (03/25/2018 7:00 PM [employer]INA [employer] DOCK MANAGER): Nonpharmacologic management. Assessment & Plan (10/12/2017 6:01 PM CDT): Nonpharmacologic management. Assessment & Plan (03/22/2017 7:50 AM MARINA [employer]Y DOCK MANAGER): Nonpharmacologic management. Moderate recurrent major depression 09/15/2016 Assessment & Plan (04/22/2023 6:54 AM MARINA [employer]Y DOCK MANAGER): Cymbalta 60 mg twice a day Buspirone [...] evaluation. Assessment & Plan (04/20/2019 2:40 PM MARINA [employer] DOCK MANAGER): Cymbalta 90 mg q.h.s. Buspirone 15 mg 3 times a day Abilify 10 mg at night Xanax 0.25 mg prn Psychiatry follow-up with Dr. Valles Assessment & Plan (10/19/2018 5:30 PM CDT): Cymbalta 90 mg q.h.s. Buspirone Abilify Xanax prn Psychiatry follow-up with Dr. Valles Assessment & Plan (03/25/2018 6:59 PM MARINA [employer] DOCK MANAGER): Cymbalta 90 mg q.h.s. Buspirone Abilify Xanax prn Psychiatry follow-up with Dr. Valles Assessment & Plan (10/12/2017 6:01 PM CDT): Cymbalta 90 mg q.h.s. Buspirone Abilify Xanax prn Psychiatry follow-up Starting counseling Assessment & Plan (03/22/2017 7:46 AM MARINA [employer]Y DOCK MANAGER): Cymbalta Buspirone Abilify Xanax prn Psychiatry follow-up Assessment & Plan (09/16/2016 7:50 AM CDT): Cymbalta Buspirone Abilify Xanax prn Psychiatry follow-up Multiple sclerosis 11/08/2013 Overview (03/27/2020): Multiple sclerosis DMT history ASSESS trial Copaxone vs Gilenya 0.25 [id number] Gilenya 0.5 mg 08/01/2015-current Mayzent (CYP2C9 *1/*3) 1mg dose: 02/18/2020- Assessment & Plan (04/22/2023 6:52 AM [employer]INA [employer] DOCK MANAGER): Periventricular and juxtacortical white matter lesions. No [...] and potentially she may not be protected. Paxloviheidy advised if she develops COVID-19 again. Vitamin [...] and potentially she may not be protected. Clemencialoviheidy advised if she develops COVID-19. Vit D3 [...] encouraged Assessment & Plan (04/20/2019 2:38 PM MARINA [employer] DOCK MANAGER): Manas. Risks discussed including cryptococcal meningitis and [...] encouraged Assessment & Plan (03/25/2018 7:01 PM MARINA [employer] DOCK MANAGER): Manas. Risks discussed including cryptococcal meningitis and [...] encouraged Assessment & Plan (03/22/2017 7:49 AM MARINA [employer] DOCK MANAGER): Manas. Risks discussed including cryptococcal meningitis and [...] aura Assessment & Plan (04/22/2023 6:53 AM MARINA [employer] DOCK MANAGER): Topamax 100 mg at night, but may be contributing to cognitive issues. 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 Never tried Qulipta due to high [id number]-hpteba costs. Avoid verapamil and propranolol on Mayzent due to risk of bradycardia. Rizatriptan ASSESSMENT ANALYST 5 mg prn (10 mg made her drowsy) Triggers discussed including red wine. Assessment & Plan (10/18/2022 3:07 PM CDT): Topamax 100 mg at night, but may be contributing to cognitive issues. 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 Never tried Qulipta due to high pnf-ls-pfrjab costs. Avoid verapamil and propranolol on Mayzent due to risk of bradycardia. Rizatriptan ASSESSMENT ANALYST 5 mg prn (10 mg made her [...] Gilenya due to risk of bradycardia. Maxalt ASSESSMENT ANALYST 5 mg prn (10 mg made her drowsy) Triggers discussed including red wine. Assessment & Plan (11/25/2021 5:55 PM CDT): Topamax 100 mg at night. Never tried Aimovig Avoid verapamil and propranolol on Gilenya due to risk of bradycardia. Maxalt ASSESSMENT ANALYST 5 mg prn (10 mg made her drowsy) Triggers discussed including red wine Assessment & Plan (05/27/2021 5:07 PM CDT): Decrease Topamax to 50 mg at night to see if helps cognition. Did not try Aimovig due to decreasing frequency of migraines Avoid verapamil and propranolol on Gilenya due to risk of bradycardia. Maxalt ASSESSMENT ANALYST 5 mg prn (10 mg made her drowsy) Triggers discussed including red wine Assessment & Plan (05/17/2020 7:23 AM CDT): Topamax 100 mg qhs Did not try Aimovig due to decreasing frequency of migraines Avoid verapamil and propranolol on Gilenya due to risk of bradycardia. Maxalt ASSESSMENT ANALYST 5 mg prn (10 mg made her drowsy) Triggers discussed including red wine Assessment & Plan (12/02/2019 12:13 PM CDT): Topamax 100 mg qhs Did not try Aimovig due to decreasing frequency of migraines Avoid verapamil and propranolol on Gilenya due to risk of bradycardia. Maxalt ASSESSMENT ANALYST 5 mg prn (10 mg made her drowsy) Triggers discussed including red wine Assessment & Plan (04/20/2019 2:39 PM MARINA [employer]Y DOCK MANAGER): Topamax 100 mg qhs Filled Aimovig prescription, but did not start. At this point, her headache frequency has decreased will hold off on starting Aimovig. Avoid verapamil and propranolol on Gilenya due to risk of bradycardia. Maxalt ASSESSMENT ANALYST 5 mg prn (10 mg made her drowsy) Triggers discussed including red wine Assessment & Plan (10/19/2018 5:29 PM CDT): Topamax 100 mg qhs Start Aimovig 70 mg. Risks discussed including allergic reactions, injection site reactions, cramping, and constipation. Avoid verapamil and propranolol on Gilenya due to risk of bradycardia. Maxalt ASSESSMENT ANALYST 5 mg prn (10 mg made her drowsy) Triggers discussed incl red wine Assessment & Plan (03/25/2018 6:59 PM MARINA [employer]Y DOCK MANAGER): Decrease Topamax from 150 mg qhs to 100 mg qhs to see if cognitive improves. Adding nortriptyline next option. Avoid verapamil and propranolol on Gilenya due to risk of bradycardia. Potential option of CGRP therapy discussed. Maxalt ASSESSMENT ANALYST 5 mg prn (10 mg made her drowsy) Triggers discussed incl red wine Assessment & Plan (10/12/2017 5:59 PM CDT): Topamax 150 mg qhs Maxalt ASSESSMENT ANALYST 5 mg prn (10 mg made her drowsy) Triggers discussed incl red wine Assessment & Plan (03/22/2017 7:46 AM MARINA [employer]Y DOCK MANAGER): Topamax 150 mg qhs Maxalt ASSESSMENT ANALYST 10 mg prn Triggers discussed incl red wine Assessment & Plan (09/16/2016 7:49 AM CDT): Topamax 150 mg qhs Maxalt ASSESSMENT ANALYST 10 mg prn Triggers discussed incl red wine Prolapse of female genital organs 10/29/2011 Overview (04/21/2024): Other specified genital prolapse;Practice ID: [id number] Uterine prolapse 07/21/2011 Overview (04/21/2024): Uterine prolapse without mention of vaginal wall prolapse;Recorded Elsewhere: No Location: [facility] Source: EHR Chronic: Y Practice ID: [id number] Billable Time: 01:30:00 PM Resolved Problems Problem Noted Date Diagnosed Date Resolved Date MS (multiple sclerosis) 10/26/2020 05/2 02/2024 Overview (04/21/2024): Diagnosed with MS in 2002 with vertigo and hand numbness Takes Mayzent daily Denies severe flares with MS Reports intermittent tremors, numbness and fatigue; imbalance but not falls Manages fatigue by breaking up tasks and taking rest breaks when needed Has next f/u with neuro in 11/2020 Alonso Chacon RN, [facility] 10/26/2020 Moderate recurrent major depression 12/02/2019 10/18/2022 Assessment [...] 10/19/2018 Assessment & Plan (03/25/2018 7:00 PM MARINA [employer]Y DOCK MANAGER): Melatonin qhs prn Assessment & Plan (10/12/2017 6:02 PM CDT): Melatonin qhs prn Assessment & Plan (03/22/2017 7:46 AM MARINA [employer]Y DOCK MANAGER): Melatonin qhs prn Assessment & Plan (09/16/2016 7:50 AM CDT): Melatonin qhs prn Benadryl caused excessive sedation. Encounters Date Type Department Care Team Description 08/01/2024 Telephone [facility] in [facility] [address] [phone] Kaylee Queen LPN Dental procedure 07/19/2024 Telephone [facility] Orthopaedic Surgery [address] [place] [address] Farrukh Campbell MD 07/13/2024 10:20 AM CDT Office Visit [facility] Orthopaedic Surgery [address] 6th [place] [address] [place] [address] Farrukh Campbell MD Right wrist pain (Primary Dx) 07/05/2024 1:00 PM CDT Office Visit [facility] in Care [address] [phone] Rolando Tineo MD Multiple sclerosis (HCC) (Primary Dx); Migraine with aura and without status migrainosus, not intractable; Neurogenic bladder; Vertigo; Moderate recurrent major depression (HCC) 06/27/2024 Results Follow-Up [facility] in [facility] [address] [id number] Rolando Tnieo MD MRI Brain WO Contrast 06/25/2024 2:12 PM CDT - 06/25/2024 11:59 PM CDT Hospital Encounter [facility] [address] [place] [phone] Multiple sclerosis (HCC) Discharge Disposition: Discharge to home or self care 06/20/2024 10:00 AM CDT Office Visit [facility] [place] [address] Louise Benton MD PhD Pain of left breast (Primary Dx); Family history of breast cancer in mother; Breast cyst, left 06/10/2024 Telephone [facility] [address] [place] [address] Louise Benton MD PhD Reschedule from Last 3 Months Immunizations Immunization Administration Dates Next Due Influenza, Quadrivalent, Split, Intramuscular ,12/07/2013 Influenza, Quadrivalent, Spl it, Preservative Free, Intramuscular 10/27/2019 Influenza, Trivalent, IM (MDV) 12/29/2012 Influenza, Trivalent, Preservative Free, Intramu scular 10/18/2014 Influenza, Unspecified 10/30/2023,10/22/2022 Pneumococcal Conjugate PCV 13 07/27/2019 Tdap 03/13/2010 Varicella 01/18/2014,12/16/2013 ZOSTER Recombinant 10/27/2019,07/29/2019 Surgical History Surgery Date Site/Laterality Comments VAGINAL HYSTERECTOMY 10/17/2012 - 11/15/2012 with removal both ovaries BREAST LUMPECTOMY 02/16/1997 - 02/15/1998 Left benign OVARIAN CYST REMOVAL 02/16/1987 - 02/16/1988 COLONOSCOPY Not sure when last one was Medical History Medical History Date Comments Multiple sclerosis (HCC) Migraine Depression Arthritis Back Cataract 2021 Anxiety ? Autoimmune disease 2000 Brain concussion 198? Family History Medical History Relation Name Comments Cancer Father Kavon Diabetes Father Kavon Heart attack Father Kavon heart attack; Heart disease Father Kavon Hypertension Father Kavon Arthritis Mother Nhung Breast cancer Mother Nhung Cancer, breast ; Cancer Mother Nhung Clotting disorder Mother Nhung Obesity Mother Nhung Relation Name Status Comments Father Kavon (Age 72) Mother Nhung (Age 73) Social History Tobacco Use Types Packs/Day Years Used Date Smoking Tobacco: Former Cigarettes 1 29 1 - 2021 Vaping Passive Smoke Exposure: Past Smokeless Tobacco: Never Tobacco Cessation:Counseling Given: Not Answered Alcohol Use Standard Drinks/Week [...] on file Legal Sex Female 9:40 AM MARINA [employer]Y DOCK MANAGER Gender Identity Female 08/23/2019 6:30 PM CDT Sexual Orientation Straight 08/23/2019 6: 30 PM CDT Obstetrics History Para Term AB IAB SAB Ectopic Multiple Livin g Live Births 2 2 2 Date Outcome GA Total Labor Labor//3rd Weight Sex Type Anes PTL Eryna A1 A5 Name Clin Term Term Last Filed Vital Signs Vital Sign Reading Time Taken Comments Blood Pressure 106/68 07/05/2024 12:57 PM CDT Pulse 78 07/05/2024 12:57 PM CDT Temperature 36.4 C (97.6 F) 07/05/2024 12:57 PM CDT Respiratory Rate 18 06/20/2024 10:33 AM CDT Oxygen Saturation 98% 07/05/2024 12:57 PM CDT Inhaled Oxygen Concentration - - Weight 78 kg (172 lb) 08/17/2024 1:15 PM CDT Height 172.7 cm (5' 8) 08/17/2024 1:15 PM CDT Body Mass Index 26.15 08/17/2024 1:15 PM CDT Plan of Treatment Upcoming Encounters Date Type Department Care Team (Latest Contact Info) Description 09/05/2024 8:15 AM CDT Hospital Encounter [facility] [address] [place] [id number] Farrukh Campbell MD [facility] [place] [address] 09/05/2024 8:15 AM CDT - 09/05/2024 9:45 AM CDT Surgery [facility] [address] [place] [id number] Farrukh Campbell MD [address] [place] [address] RIGHT WRIST ARTHROSCOPY WITH POSSIBLE TRIANGULOFIBROCARTILAGE COMPLEX DEBRIDEMENT Scheduled Procedures Name Priority Associated Diagnoses Date/Ti me ARTHROSCOPY WRIST - TRIANGULOFIBROCARTILAGE COMPLEX REPAIR/DEBRIDEMENT Injury of right wrist, initial encounter Right wrist pain 09/05/2024 8:15 AM CDT Health Maintenance Due Date Last Done Comments Colon Cancer Screening-Colonoscopy 1964 Depression Screening 1964 Hepatitis C Screening 1964 Hepatitis B Screening 1982 Regular Well Visit/Exam 18-64 1982 Lung Cancer Screening 2014 DTaP/Tdap/Td Vaccine (2 - Td or Tdap) 03/13/2020 03/13/2010 Covid-19 Vaccine ( season) 2023 07/14/2020, 06/16/2020 Influenza Vaccine (#1) 2024 , 10/22/2022, 10/27/2019, Additional history exists Breast Cancer Screening-Mammogram 04/21/2025 04/21/2024, 06/02/2022, 08/08/2019 Pneumococcal vaccine <65 Aged Out 07/27/2019 No longer eligible based on patient's age to complete this topic Zoster Vaccine Completed 10/27/2019, 07/29/2019 Procedures Procedure Name Priority Date/Time Associated Diagnosis Comments MRI BRAIN WO CONTRAST Schedule Routine, Read Routine (OP Routine) 06/25/2024 3:00 PM CDT Multiple sclerosis (HCC) HEPATIC FUNCTION PANEL Routine 06/13/2024 1:26 PM CDT Multiple sclerosis (HCC) CBC WITH AUTO DIFFERENTIAL Routine 06/13/2024 1:26 PM CDT Multiple sclerosis (HCC) DIAGNOSTIC MAMMOGRAM BILATERAL W CARMELO Schedule Routine, Read Routine (OP Routine) 04/21/2024 11:37 AM MARINA [employer]Y DOCK MANAGER Breast pain from Last 3 Months or Most Recently Relevant to Health Maintenance Results * MRI Brain WO Contrast (06/25/2024 3:00 PM CDT) Anatomical Region Laterality Modality Head and Neck N/A Magnetic Resonan ce 06/27/2024 10:4 8 AM CDT Impressions 06/27/2024 11:25 AM CDT 1. Multiple unchanged intracranial white matter lesions. 2. New T2 Lesions: None Dictated by: Nan Hallman DO The radiology attending physician has personally reviewed this study, and had reviewed and/or edited this written report and agrees with it. Electronically signed by: Berto Jacob MD Narrative 06/27/2024 11:25 AM CDT EXAMINATION: Magnetic resonance imaging (MRI) of the brain and brainstem without contrast HISTORY: 59 year old female with multiple sclerosis TECHNIQUE: Multiplanar multi-weighted MRI of the brain, brainstem was performed without intravenous contrast using the multiple sclerosis protocol. Scanner: [place] Field Strength: 3T Contrast information: None. COMPARISON: MRI brain dated 05/10/2022 FINDINGS: BRAIN: There are multiple foci of hyperintensity on FLAIR and T2-weighted images within the white matter. This includes periventricular, callosal, and cortical or juxtacortical lesions. New Brain T2 Lesions: No definite new lesions identified, considering differences in technique. T2/FLAIR [place] of Disease: Mild, less than 10 typical lesions or 20 punctate lesions Central Vein Sign: Majority of lesions No black holes. The visualized portions of the optic nerves are normal. The scalp and calvarium are normal. The posterior fossa is unremarkable. The pituitary and sella are normal. The brainstem and craniocervical junction are unremarkable. Diffusion weighted images reveal no hyperintensities to suggest acute cerebral infarction. The ventricles are normal in size and position without evidence of hydrocephalus. Right maxillary sinus mucous retention cyst visualized paranasal sinuses are otherwise normal. Left mastoid effusion. Artifact from mascara affects visualization of the orbits. Normal flow voids are demonstrated in the carotid arteries and basilar artery. Procedure Note Berto Jacob MD PhD - 06/27/2024 EXAMINATION: Magnetic resonance imaging (MRI) of the brain and brainstem without contrast HISTORY: 59 year old female with multiple sclerosis TECHNIQUE: Multiplanar multi-weighted MRI of the brain, brainstem was performed without intravenous contrast using the multiple sclerosis protocol. Scanner: Annika Field Strength: 3T Contrast information: None. COMPARISON: MRI brain dated 05/10/2022 FINDINGS: BRAIN: There are multiple foci of hyperintensity on FLAIR and T2-weighted images within the white matter. This includes periventricular, callosal, and cortical or juxtacortical lesions. New Brain T2 Lesions: No definite new lesions identified, considering differences in technique. T2/FLAIR [place] of Disease: Mild, less than 10 typical lesions or 20 punctate lesions Central Vein Sign: Majority of lesions No black holes. The visualized portions of the optic nerves are normal. The scalp and calvarium are normal. The posterior fossa is unremarkable. The pituitary and sella are normal. The brainstem and craniocervical junction are unremarkable. Diffusion weighted images reveal no hyperintensities to suggest acute cerebral infarction. The ventricles are normal in size and position without evidence of hydrocephalus. Right maxillary sinus mucous retention cyst visualized paranasal sinuses are otherwise normal. Left mastoid effusion. Artifact from mascara affects visualization of the orbits. Normal flow voids are demonstrated in the carotid arteries and basilar artery. IMPRESSION: 1. Multiple unchanged intracranial white matter lesions. 2. New T2 Lesions: None Dictated by: Nan Hallman DO The radiology attending physician has personally reviewed this study, and had reviewed and/or edited this written report and agrees with it. Electronically signed by: Berto Jacob MD us Rolando Tineo MD IMG MRI PROCEDURES Final Resu lt * (ABNORMAL) CBC with auto differential (06/13/2024 1:26 PM CDT) WBC 2.7(L) 3.8 - 10.8 Thousand/u L [facility] RBC, POC 4.30 3.80 - 5.10 Million/uL [facility] Hgb 13.1 11.7 - 15.5 g/dL [facility] Hct 41.0 35.0 - 45.0 % [facility] MCV 95.3 80.0 - 100.0 fL [facility] MCH 30.5 27.0 - 33.0 pg [facility] MCHC 32.0 32.0 - 36.0 g/dL [facility] Comment: For adults, a slight decrease in the calculated MCHC value (in the range of 30 to 32 g/dL) is most likely not clinically significant; however, it should be interpreted with caution in correlation with other red cell parameters and the patient's clinical condition. Rdw 12.6 11.0 - 15.0 % [facility] Platelets 250 140 - 400 Thousand/u L [facility] MPV 9.4 7.5 - 12.5 fL [facility] Neutrophils, abs 1,906 1,500 - 7,800 cells/uL [facility] Lymphocytes, abs 397(L) 850 - 3,900 cells/uL [facility] Monocyte abs 297 200 - 950 cells/uL [facility] Eosinophils, abs 89 15 - 500 cells/uL [facility] Basophils, abs 11 0 - 200 cells/uL [facility] Neutrophils 70.6 % [facility] Lymphocyte pct 14.7 % [facility] Monocytes 11.0 % [facility] Eosinophils 3.3 % [facility] Basophils 0.4 % [facility] Blood 06/13/2024 1:26 PM CDT 06/13/2024 1:26 PM CDT us Rolando Tineo MD LAB BLOOD ORDERABLES Final Re sult [facility] [address] [place] [address] * Hepatic function panel (06/13/2024 1:26 PM CDT) Pathologist [facility] Protein, Total 6.6 6.4 - 8.4 g/dL [facility] Albumin 4.2 3.6 - 5.1 g/dL [facility] Globulin 2.4 2.2 - 4.0 g/dL (calc) [facility] Alb/glob ratio 1.8 0.9 - 2.3 (calc) [facility] Bilirubin, total 0.4 0.2 - 1.2 mg/dL [facility] Comment: Verified by repeat analysis. Bilirubin, direct 0.0 < OR = 0.2 mg/dL [facility] Comment: Verified by repeat analysis. Bilirubin, indirect 0.4 0.2 - 1.2 mg/dL (calc) [facility] Alk phos 45 37 - 153 U/L [facility] AST 21 10 - 35 U/L [facility] ALT (SGPT) 20 6 - 29 U/L [facility] Blood 06/13/2024 1:26 PM CDT 06/13/2024 1:26 PM CDT us Rolando Tineo MD LAB BLOOD ORDERABLES Final Re sult [facility] [address] [place] [address] * Diagnostic Mammogram Bilateral W Carmelo (04/21/2024 11:37 AM MARINA DRY DOCK MANAGER) Anatomical Region Laterality Modality Breast Bilateral Mammography 04/21/2024 11:4 3 AM MARINA DRY DOCK MANAGER Impressions 04/21/2024 2:24 PM MARINA DRY DOCK MANAGER No evidence of malignancy in EITHER breast. OVERALL FINAL ASSESSMENT: BI-RADS Category 2: Benign. RECOMMENDATION: Annual screening mammography is recommended. Dictated by: Mary Gardner MD The radiology attending physician has personally reviewed this study, and had reviewed and/or edited this written report and agrees with it. Electronically signed by: Danielle Alcaraz M.D. Narrative 04/21/2024 2:24 PM MARINA DRY DOCK MANAGER EXAMINATION: BILATERAL DIGITAL DIAGNOSTIC MAMMOGRAM INCLUDING CAD AND BILATERAL DIGITAL BREAST TOMOSYNTHESIS HISTORY: 58-year-old woman with chronic LEFT breast pain. COMPARISON: Multiple priors, most recently 07/29/2023 TECHNIQUE: Full field digital mammographic views of BOTH breasts were performed, including computer aided detection (CAD) and BILATERAL digital breast tomosynthesis (DBT). BREAST PARENCHYMAL COMPOSITION: There are scattered areas of fibroglandular density. MAMMOGRAM FINDINGS: There is no suspicious mass, area of architectural distortion, or grouped microcalcifications in EITHER breast. Stable appearance of a cyst in the LEFT breast at the area of the patient's pain. Procedure Note Danielle Alcaraz MD - 04/21/2024 EXAMINATION: BILATERAL DIGITAL DIAGNOSTIC MAMMOGRAM INCLUDING CAD AND BILATERAL DIGITAL BREAST TOMOSYNTHESIS HISTORY: 58-year-old woman with chronic LEFT breast pain. COMPARISON: Multiple priors, most recently 07/29/2023 TECHNIQUE: Full field digital mammographic views of BOTH breasts were performed, including computer aided detection (CAD) and BILATERAL digital breast tomosynthesis (DBT). BREAST PARENCHYMAL COMPOSITION: There are scattered areas of fibroglandular density. MAMMOGRAM FINDINGS: There is no suspicious mass, area of architectural distortion, or grouped microcalcifications in EITHER breast. Stable appearance of a cyst in the LEFT breast at the area of the patient's pain. IMPRESSION: No evidence of malignancy in EITHER breast. OVERALL FINAL ASSESSMENT: BI-RADS Category 2: Benign. RECOMMENDATION: Annual screening mammography is recommended. Dictated by: Mary Gardner MD The radiology attending physician has personally reviewed this study, and had reviewed and/or edited this written report and agrees with it. Electronically signed by: Danielle Alcaraz M.D. [facility] IMG MAMMO PROCEDURES Fi nal Result from Last 3 Months or Most Recently Relevant to Health Maintenance Insurance [facility] MEDICARE HMO [employer] CHOICE MEDICARE PPO [employer] MEDICARE PPO Care Teams Psych Therapist Relationship Specialty Start Date End Date Melba Garcia MD [address] [place] [address] PCP - General 04/24/08 Elizabeth Diamond NP [address] [place] [address] Nurse Practitioner Nurse Practitioner 05/30/21 Usha English NP [address] [place] [address] Nurse Practitioner Obstetrics and Gynecology 01/12/24
--- OUTSIDE RECORDS SUMMARY | 2024-08-23 10:05 | XMS_ITS | Encounter Summary ---
Author Organization [facility] Healthcare Address [address] [place] [address] Care Team Providers Care Clinical Genetics Laboratory Chief Name Role Phone Melba Garcia MD Primary Care Provider [phone] Reason for Visit * Diagnostic Imaging (Routine) - Closed Specialty Diagnoses / Procedures Referred By Kilo marion Referred To Contact Procedures Breast Imaging US Outside Reference Yanira Maher NP Phone: tel: fax: Referral ID Status Reason Start Date Expiration Date Visits Re quested Visits Authorized [id number] Closed 06/03/2021 07/03/2022 1 1 Encounter Details Date Type Department Care Team (Late st Contact Info) Description 05/25/2017 12:05 AM CDT Hospital Encounter [facility] [address] [place] [id number] Social History Tobacco Use Types Packs/Day Years [...] on file Legal Sex Female 9:40 AM DIRECTOR OF CATEGORY MANAGEMENT Gender Identity Female 08/23/2019 6:30 PM CDT Sexual Orientation Straight 08/23/2019 6: 30 PM CDT documented as of this encounter Functional Status * Audit-C Score Answer Date of Assessment Author 0 08/17/2024 1:18 PM CDT Diana Key RN * Question Answer Date [...] Description 09/05/2024 8:15 AM CDT Hospital Encounter [facility] [address] [place] [address] Farrukh Campbell MD [address] [facility] [place] [address] 09/05/2024 8:15 AM CDT - 09/05/2024 9:45 AM CDT Surgery [facility] [address] [place] [address] Farrukh Campbell MD [address] [facility] [place] [address] RIGHT WRIST ARTHROSCOPY WITH POSSIBLE TRIANGULOFIBROCARTILAGE COMPLEX [...] Outside Reference (05/25/2017 12:05 AM CDT) Impressions [facility]_MAMMO[facility] - 06/03/2021 11:17 AM CDT These images are for Reference purposes only and have not been reviewed by [facility]. There will be no report generated by a [facility] Radiologist. Narrative [facility]MO[facility] - 06/03/2021 11:17 AM CDT EXAMINATION: Images For Reference Purposes Only us Yanira Maher SHELL FREEZING MACHINE OPERATOR IMG MAMMO PROCEDURES Fin al Result [facility]MO[facility] documented in this encounter Visit Diagnoses Not on filedocumented in this encounter Care Teams Clinical Genetics Laboratory Chief Relationship Specialty Start Date End Date Melba Garcia MD [address] [place] [address] PCP - General 04/24/08 documented as of this encounter
--- OUTSIDE RECORDS SUMMARY | 2024-08-23 10:05 | XMS_ITS | Encounter Summary ---
Author Organization [facility] Healthcare Address [address] [place] [address] Care Team Providers Care Industrial Economics Professor Name Role Phone Melba Garcia MD Primary Care Provider [phone] Reason for Visit * Diagnostic Imaging (Routine) - Closed Specialty Diagnoses / Procedures Referred By Kilo marion Referred To Contact Procedures Breast Imaging Screening Outside Reference Yanira Maher NP Phone: tel: fax: Referral ID Status Reason Start Date Expiration Date Visits Re quested Visits Authorized [id number] Closed 06/03/2021 07/03/2022 1 1 Encounter Details Date Type Department Care Team (Late st Contact Info) Description 04/18/2016 Hospital Encounter [facility] [address] [place] [id number] Social History Tobacco Use Types Packs/Day [...] on file Legal Sex Female 9:40 AM INCLUSION PARAEDUCATOR Gender Identity Female 08/23/2019 6:30 PM CDT [...] Description 09/05/2024 8:15 AM CDT Hospital Encounter [facility] [address] [place] [address] Farrukh Campbell MD [address] [facility] [place] [address] 09/05/2024 8:15 AM CDT - 09/05/2024 9:45 AM CDT Surgery [facility] [address] [place] [address] Farrukh Campbell MD [address] [facility] [place] [address] RIGHT WRIST ARTHROSCOPY WITH POSSIBLE TRIANGULOFIBROCARTILAGE COMPLEX DEBRIDEMENT Scheduled Procedures Name Priority Associated Diagnoses Date/Ti me ARTHROSCOPY WRIST - TRIANGULOFIBROCARTILAGE COMPLEX REPAIR/DEBRIDEMENT Injury of right wrist, initial encounter Right wrist pain 09/05/2024 8:15 AM CDT documented as of this encounter Procedures Procedure Name Priority Date/Time Associated Diagnosis Comments BREAST IMAGING MG SCREENING OUTSIDE REFERENCE Routine 04/18/2016 12:00 AM INCLUSION PARAEDUCATOR documented in this encounter Results * Breast Imaging Screening Outside Reference (04/18/2016 12:00 AM INCLUSION PARAEDUCATOR) Impressions RAD_MAMMO_[facility] - 06/03/2021 11:16 AM CDT These images are for Reference purposes only and have not been reviewed by [facility] Radiology. There will be no report generated by a [facility] Radiologist. Narrative [facility]_MAMMO[facility] - 06/03/2021 11:16 AM CDT EXAMINATION: Images For Reference Purposes Only us Yanira Maher FIRE CHIEF DEPUTY IMG MAMMO PROCEDURES Fin al Result [facility]MO[facility] documented in this encounter Visit Diagnoses Not on filedocumented in this encounter Care Teams Industrial Economics Professor Relationship Specialty Start Date End Date Melba Garcia MD [address] [place] [address] PCP - General 04/24/08 documented as of this encounter
--- OUTSIDE RECORDS SUMMARY | 2024-08-23 10:05 | XMS_ITS | Encounter Summary ---
Author Organization [facility] Healthcare Address [address] [place] [address] Care Team Providers Care Second Rigger Name Role Phone Melba Garcia MD Primary Care Provider [phone] Reason for Visit * Diagnostic Imaging (Routine) - Closed Specialty Diagnoses / Procedures Referred By Kilo marion Referred To Contact Procedures Breast Imaging Screening Outside Reference Yanira Maher NP Phone: tel: fax: Referral ID Status Reason Start Date Expiration Date Visits Re quested Visits Authorized [id number] Closed 06/03/2021 07/03/2022 1 1 Encounter Details Date Type Department Care Team (Late st Contact Info) Description 03/07/2015 Hospital Encounter [facility] [address] [place] [address] Social History Tobacco Use Types Packs/Day [...] on file Legal Sex Female 9:40 AM DYE MACHINE OPERATOR Gender Identity Female 08/23/2019 6:30 PM [...] Description 09/05/2024 8:15 AM CDT Hospital Encounter [facility] [address] [place] [address] Farrukh Campbell MD [address] [facility] [place] [address] 09/05/2024 8:15 AM CDT - 09/05/2024 9:45 AM CDT Surgery [facility] [address] [place] [address] Farrukh Campbell MD [address] [facility] [place] [address] RIGHT WRIST ARTHROSCOPY WITH POSSIBLE TRIANGULOFIBROCARTILAGE COMPLEX DEBRIDEMENT Scheduled Procedures Name Priority Associated Diagnoses Date/Ti me ARTHROSCOPY WRIST - TRIANGULOFIBROCARTILAGE COMPLEX REPAIR/DEBRIDEMENT Injury of right wrist, initial encounter Right wrist pain 09/05/2024 8:15 AM CDT documented as of this encounter Procedures Procedure Name Priority Date/Time Associated Diagnosis Comments BREAST IMAGING MG SCREENING OUTSIDE REFERENCE Routine 03/07/2015 12:00 AM DYE MACHINE OPERATOR documented in this encounter Results * Breast Imaging Screening Outside Reference (03/07/2015 12:00 AM DYE MACHINE OPERATOR) Impressions RAD_MAMMO_[facility] - 06/03/2021 11:16 AM CDT These images are for Reference purposes only and have not been reviewed by [facility]. There will be no report generated by a [facility] Radiologist. Narrative [facility]_MAMMO[facility] - 06/03/2021 11:16 AM CDT EXAMINATION: Images For Reference Purposes Only us Yanira Maher TIEING MACHINE OPERATOR IMG MAMMO PROCEDURES Fin al Result [facility] documented in this encounter Visit Diagnoses Not on filedocumented in this encounter Care Teams Second Rigger Relationship Specialty Start Date End Date Melba Garcia MD [address] [place] [address] PCP - General 04/24/08 documented as of this encounter
--- OUTSIDE RECORDS SUMMARY | 2024-08-23 10:05 | XMS_ITS | Encounter Summary ---
Author Organization [facility] Healthcare Address [address] [place] [address] Care Team Providers Care Java Grails Developer Name Role Phone Melba Garcia MD Primary Care Provider Elizabeth Diamond QUALITY ASSURANCE ASSESSOR Unavailable [phone] Usha English QUALITY ASSURANCE ASSESSOR Unavailable [phone] Encounter Details Date Type Department Care Team (Latest Contact Info) Description 06/27/2024 Results Follow-Up [facility] [address] [facility] [address], [place] [address] Rolando Tineo MD [facility] [facility] [address] [place] [address] MRI Brain WO Contrast Social History Tobacco Use Types Packs/Day Years Used Date Smoking Tobacco: Every Day Vaping Smokeless Tobacco: Current Alcohol Use Standard Drinks/Week Comments No 0 (1 standard drink = 0.6 oz pur e alcohol) Occassionally vapes Comments No Sex and Gender Information Value Date Recorded Sex Assigned at Not on file Legal Sex Female 9:40 AM WATER RESOURCES BUSINESS SEGMENT LEADER Gender Identity Female 08/23/2019 6:30 PM CDT Sexual Orientation Straight 08/23/2019 6: 30 PM CDT documented as of this encounter Plan of Treatment Upcoming Encounters Date Type Department Care Team (Latest Contact Info) Description 09/05/2024 8:15 AM CDT Hospital Encounter [facility] [address] [place] [address] Farrukh Campbell MD [address] [facility] [address] [address] [place] [address] 09/05/2024 8:15 AM CDT - 09/05/2024 9:45 AM CDT Surgery [facility] [address] [place] [address] Farrukh Campbell MD [address] [place] [address] RIGHT WRIST ARTHROSCOPY WITH POSSIBLE TRIANGULOFIBROCARTILAGE COMPLEX DEBRIDEMENT Scheduled Procedures Name Priority Associated Diagnoses Date/Ti me ARTHROSCOPY WRIST - TRIANGULOFIBROCARTILAGE COMPLEX REPAIR/DEBRIDEMENT Injury of right wrist, initial encounter Right wrist pain 09/05/2024 8:15 AM CDT documented as of this encounter Visit Diagnoses Not on filedocumented in this encounter Care Teams Java Grails Developer Relationship Specialty Start Date End Date Melba Garcia MD [address] [place] [address] PCP - General 04/24/08 Elizabeth Diamond NP [address] [place] [address] Nurse Practitioner Nurse Practitioner 05/30/21 Usha English NP [address] [place] [address] Nurse Practitioner Obstetrics and Gynecology 01/12/24 documented as of this encounter
--- OUTSIDE RECORDS SUMMARY | 2024-08-23 10:05 | XMS_ITS | Encounter Summary ---
Author Organization [facility] Healthcare Address [address] [place] [address] Care Team Providers Care Gsa Coordinator Name Role Phone Melba Garcia MD Primary Care Provider [phone] Reason for Visit * Diagnostic Imaging (Routine) - Closed Specialty Diagnoses / Procedures Referred By Kilo marion Referred To Contact Procedures Breast Imaging Diagnostic Outside Reference Yanira Maher NP Phone: tel: fax: Referral ID Status Reason Start Date Expiration Date Visits Re quested Visits Authorized [id number] Closed 06/03/2021 07/03/2022 1 1 Encounter Details Date Type Department Care Team (Late st Contact Info) Description 05/25/2017 Hospital Encounter [facility] [address] [place] [address] Social History Tobacco Use Types Packs/Day [...] on file Legal Sex Female 9:40 AM BLAST FURNACE SUPERVISOR Gender Identity Female 08/23/2019 6:30 PM CDT [...] 09/05/2024 8:15 AM CDT Hospital Encounter [facility] [address] [place] [address] Farrukh Campbell MD [address] [place] [address] 09/05/2024 8:15 AM CDT - 09/05/2024 9:45 AM CDT Surgery [facility] [address] [place] [address] Farrukh Campbell MD [address] [place] [address] RIGHT WRIST ARTHROSCOPY WITH POSSIBLE TRIANGULOFIBROCARTILAGE COMPLEX [...] only and have not been reviewed by [facility] Radiology. There will be no report generated by a [facility] Radiologist. Narrative RAD_MAMMO_[facility] - 06/03/2021 11:16 AM CDT EXAMINATION: Images For Reference Purposes Only us Yanira Maher INSURANCE BILLING CLERK IMG MAMMO PROCEDURES Fin al Result RAD_MAMMO[facility] documented in this encounter Visit Diagnoses Not on filedocumented in this encounter Care Teams Gsa Coordinator Relationship Specialty Start Date End Date Melba Garcia MD [address] [place] [address] PCP - General 04/24/08 documented as of this encounter
--- OUTSIDE RECORDS SUMMARY | 2024-08-23 10:05 | XMS_ITS | Referral Summary ---
[facility] Address [address] [place] [address] Care Team Providers Care Victims Advocate Clerk/Specialist Name Role Phone Melba Garcia MD Primary Care Provider Elizabeth Diamond COACH DRIVER Unavailable [phone] Usha English COACH DRIVER Unavailable [phone] Encounters Date Type Department Care Team Description 08/01/2024 Telephone [facility] [address] [facility] [facility] [address] [facility] [address] [place] [address] Kaylee Queen LPN Dental procedure 07/19/2024 Telephone [facility] Orthopaedic Surgery [address] [facility] [facility] [address] [place] [address] Farrukh Campbell MD 07/13/2024 10:20 AM CDT Office Visit [facility] Orthopaedic Surgery [facility] 6th [place] [address] [place] [address] Farrukh Campbell MD Right wrist pain (Primary Dx) 07/05/2024 1:00 PM CDT Office Visit [facility] [address] [address] [facility] [address] [place] [address] Rolando Tineo MD Multiple sclerosis (HCC) (Primary Dx); Migraine with aura and without status migrainosus, not intractable; Neurogenic bladder; Vertigo; Moderate recurrent major depression (HCC) 06/27/2024 Results Follow-Up [facility] [address] [facility] [address] [facility] [address] [place] [address] Rolando Tineo MD MRI Brain WO Contrast 06/25/2024 2:12 PM CDT - 06/25/2024 11:59 PM CDT Hospital Encounter [facility] [address] [place] [address] Multiple sclerosis (HCC) Discharge Disposition: Discharge to home or self care 06/20/2024 10:00 AM CDT Office Visit [facility] Surgery [facility] [address] [place] [address] Louise Benton MD PhD Pain of left breast (Primary Dx); Family history of breast cancer in mother; Breast cyst, left 06/10/2024 Telephone [facility] Surgery [address] [place] [address] [address] [place] [address] Louise Benton MD PhD Reschedule from Last 3 Months Allergies Active Allergy [...] 025 Discontin ued(Thera py completed ) karley vgdl-rgrkxryf-bs molenic ac 1,000 mg capsule 025 Discontin ued(Alter ej therapy) Active Problems Problem Noted Date Diagnosed Date Injury of right wrist 07/20/2024 Right wrist pain 07/20/2024 Vertigo 06/03/2022 Assessment & Plan (04/22/2023 6:53 AM DATA WAREHOUSING SPECIALIST): Bouts of spinning sensation lasting up to [...] 11/25/2021 Assessment & Plan (04/22/2023 6:55 AM DATA WAREHOUSING SPECIALIST): July 2021 Fever up to 103 F, [...] 03/22/2017 Assessment & Plan (04/22/2023 6:53 AM DATA WAREHOUSING SPECIALIST): Non-pharmacologic management discussed. Assessment & Plan (10/18/2022 [...] management Assessment & Plan (04/20/2019 2:40 PM DATA WAREHOUSING SPECIALIST): Non-pharmacologic management Assessment & Plan (10/19/2018 5:31 PM CDT): Non-pharmacologic management Assessment & Plan (03/25/2018 7:00 PM DATA WAREHOUSING SPECIALIST): Nonpharmacologic management. Assessment & Plan (10/12/2017 6:01 PM CDT): Nonpharmacologic management. Assessment & Plan (03/22/2017 7:50 AM DATA WAREHOUSING SPECIALIST): Nonpharmacologic management. Moderate recurrent major depression 09/15/2016 Assessment & Plan (04/22/2023 6:54 AM DATA WAREHOUSING SPECIALIST): Cymbalta 60 mg twice a day Buspirone [...] evaluation. Assessment & Plan (04/20/2019 2:40 PM DATA WAREHOUSING SPECIALIST): Cymbalta 90 mg q.h.s. Buspirone 15 mg 3 times a day Abilify 10 mg at night Xanax 0.25 mg prn Psychiatry follow-up with Dr. Valles Assessment & Plan (10/19/2018 5:30 PM CDT): Cymbalta 90 mg q.h.s. Buspirone Abilify Xanax prn Psychiatry follow-up with Dr. Valles Assessment & Plan (03/25/2018 6:59 PM DATA WAREHOUSING SPECIALIST): Cymbalta 90 mg q.h.s. Buspirone Abilify Xanax prn Psychiatry follow-up with Dr. Valles Assessment & Plan (10/12/2017 6:01 PM CDT): Cymbalta 90 mg q.h.s. Buspirone Abilify Xanax prn Psychiatry follow-up Starting counseling Assessment & Plan (03/22/2017 7:46 AM DATA WAREHOUSING SPECIALIST): Cymbalta Buspirone Abilify Xanax prn Psychiatry follow-up Assessment & Plan (09/16/2016 7:50 AM CDT): Cymbalta Buspirone Abilify Xanax prn Psychiatry follow-up Multiple sclerosis 11/08/2013 Overview (03/27/2020): Multiple sclerosis DMT history ASSESS trial Copaxone vs Gilenya 0.25 [id number] Gilenya 0.5 mg 08/01/2015-current Mayzent (CYP2C9 *1/*3) 1mg dose: 02/18/2020- Assessment & Plan (04/22/2023 6:52 AM DATA WAREHOUSING SPECIALIST): Periventricular and juxtacortical white matter lesions. No [...] encouraged Assessment & Plan (04/20/2019 2:38 PM DATA WAREHOUSING SPECIALIST): Manas. Risks discussed including cryptococcal meningitis and [...] encouraged Assessment & Plan (03/25/2018 7:01 PM DATA WAREHOUSING SPECIALIST): Manas. Risks discussed including cryptococcal meningitis and [...] encouraged Assessment & Plan (03/22/2017 7:49 AM DATA WAREHOUSING SPECIALIST): Manas. Risks discussed including cryptococcal meningitis and [...] aura Assessment & Plan (04/22/2023 6:53 AM DATA WAREHOUSING SPECIALIST): Topamax 100 mg at night, but may be contributing to cognitive issues. 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 Never tried Qulipta due to high pwt-ya-rnedyq costs. Avoid verapamil and propranolol on Mayzent due to risk of bradycardia. Rizatriptan OFFICE MOVER 5 mg prn (10 mg made her drowsy) Triggers discussed including red wine. Assessment & Plan (10/18/2022 3:07 PM CDT): Topamax 100 mg at night, but may be contributing to cognitive issues. 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 Never tried Qulipta due to high icq-gr-gavycs costs. Avoid verapamil and propranolol on Mayzent due to risk of bradycardia. Rizatriptan OFFICE MOVER 5 mg prn (10 mg made her [...] Gilenya due to risk of bradycardia. Maxalt OFFICE MOVER 5 mg prn (10 mg made her drowsy) Triggers discussed including red wine. Assessment & Plan (11/25/2021 5:55 PM CDT): Topamax 100 mg at night. Never tried Aimovig Avoid verapamil and propranolol on Gilenya due to risk of bradycardia. Maxalt OFFICE MOVER 5 mg prn (10 mg made her drowsy) Triggers discussed including red wine Assessment & Plan (05/27/2021 5:07 PM CDT): Decrease Topamax to 50 mg at night to see if helps cognition. Did not try Aimovig due to decreasing frequency of migraines Avoid verapamil and propranolol on Gilenya due to risk of bradycardia. Maxalt OFFICE MOVER 5 mg prn (10 mg made her drowsy) Triggers discussed including red wine Assessment & Plan (05/17/2020 7:23 AM CDT): Topamax 100 mg qhs Did not try Aimovig due to decreasing frequency of migraines Avoid verapamil and propranolol on Gilenya due to risk of bradycardia. Maxalt OFFICE MOVER 5 mg prn (10 mg made her drowsy) Triggers discussed including red wine Assessment & Plan (12/02/2019 12:13 PM CDT): Topamax 100 mg qhs Did not try Aimovig due to decreasing frequency of migraines Avoid verapamil and propranolol on Gilenya due to risk of bradycardia. Maxalt OFFICE MOVER 5 mg prn (10 mg made her drowsy) Triggers discussed including red wine Assessment & Plan (04/20/2019 2:39 PM DATA WAREHOUSING SPECIALIST): Topamax 100 mg qhs Filled Aimovig prescription, but did not start. At this point, her headache frequency has decreased will hold off on starting Aimovig. Avoid verapamil and propranolol on Gilenya due to risk of bradycardia. Maxalt OFFICE MOVER 5 mg prn (10 mg made her drowsy) Triggers discussed including red wine Assessment & Plan (10/19/2018 5:29 PM CDT): Topamax 100 mg qhs Start Aimovig 70 mg. Risks discussed including allergic reactions, injection site reactions, cramping, and constipation. Avoid verapamil and propranolol on Gilenya due to risk of bradycardia. Maxalt OFFICE MOVER 5 mg prn (10 mg made her drowsy) Triggers discussed incl red wine Assessment & Plan (03/25/2018 6:59 PM DATA WAREHOUSING SPECIALIST): Decrease Topamax from 150 mg qhs to 100 mg qhs to see if cognitive improves. Adding nortriptyline next option. Avoid verapamil and propranolol on Gilenya due to risk of bradycardia. Potential option of CGRP therapy discussed. Maxalt OFFICE MOVER 5 mg prn (10 mg made her drowsy) Triggers discussed incl red wine Assessment & Plan (10/12/2017 5:59 PM CDT): Topamax 150 mg qhs Maxalt OFFICE MOVER 5 mg prn (10 mg made her drowsy) Triggers discussed incl red wine Assessment & Plan (03/22/2017 7:46 AM DATA WAREHOUSING SPECIALIST): Topamax 150 mg qhs Maxalt OFFICE MOVER 10 mg prn Triggers discussed incl red wine Assessment & Plan (09/16/2016 7:49 AM CDT): Topamax 150 mg qhs Maxalt OFFICE MOVER 10 mg prn Triggers discussed incl red wine Prolapse of female genital organs 10/29/2011 Overview (04/21/2024): Other specified genital prolapse;Practice ID: 0001 Uterine prolapse 07/21/2011 Overview (04/21/2024): Uterine prolapse without mention of vaginal wall prolapse;Recorded Elsewhere: No Location: [facility] Source: EHR Chronic: Y Practice ID: [id number] [...] when needed Has next f/u with neuro MD in 11/2020 Alonso Chacon RN, [facility] 10/26/2020 Moderate recurrent major depression 12/02/2019 10/18/2022 [...] 0.25 mg prn Psychiatry follow-up with Dr. Vlales Primary insomnia 09/15/2016 10/19/2018 Assessment & Plan (03/25/2018 7:00 PM DATA WAREHOUSING SPECIALIST): Melatonin qhs prn Assessment & Plan (10/12/2017 6:02 PM CDT): Melatonin qhs prn Assessment & Plan (03/22/2017 7:46 AM DATA WAREHOUSING SPECIALIST): Melatonin qhs prn Assessment & Plan (09/16/2016 7:50 AM CDT): Melatonin qhs prn Benadryl caused excessive sedation. Immunizations Immunization Administration Dates Next Due Influenza, Quadrivalent, Split, Intramuscular ,12/07/2013 Influenza, Quadrivalent, Spl it, Preservative Free, Intramuscular 10/27/2019 Influenza, Trivalent, IM (MDV) 12/29/2012 Influenza, Trivalent, Preservative Free, Intramu scular 10/18/2014 Influenza, Unspecified 10/30/2023,10/22/2022 Pneumococcal Conjugate PCV 13 07/27/2019 Tdap 03/13/2010 Varicella 01/18/2014,12/16/2013 ZOSTER Recombinant 10/27/2019,07/29/2019 Social History Tobacco Use Types Packs/Day Years Used Date Smoking Tobacco: Former Cigarettes 1 29 1 993 - 2021 Vaping Passive Smoke Exposure: Past [...] on file Legal Sex Female 9:40 AM DATA WAREHOUSING SPECIALIST Gender Identity Female 08/23/2019 6:30 PM CDT [...] Description 09/05/2024 8:15 AM CDT Hospital Encounter [facility] [address] [place] [address] Farrukh Campbell MD [address], [place] [address] 09/05/2024 8:15 AM CDT - 09/05/2024 9:45 AM CDT Surgery [facility] [address] [place] [address] Farrukh Campbell MD [address] [place] [address] RIGHT WRIST ARTHROSCOPY WITH POSSIBLE TRIANGULOFIBROCARTILAGE COMPLEX DEBRIDEMENT Scheduled Procedures Name Priority Associated Diagnoses Date/Ti me ARTHROSCOPY WRIST - TRIANGULOFIBROCARTILAGE COMPLEX REPAIR/DEBRIDEMENT Injury of right wrist, initial encounter Right wrist pain 09/05/2024 8:15 AM CDT Procedures Procedure Name Priority Date/Time Associated Diagnosis Comments MRI BRAIN WO CONTRAST Schedule Routine, Read Routine (OP Routine) 06/25/2024 3:00 PM CDT Multiple sclerosis (HCC) HEPATIC FUNCTION PANEL Routine 06/13/2024 1:26 PM CDT Multiple sclerosis (HCC) CBC WITH AUTO DIFFERENTIAL Routine 06/13/2024 1:26 PM CDT Multiple sclerosis (HCC) DIAGNOSTIC MAMMOGRAM BILATERAL W CARMELO Schedule Routine, Read Routine (OP Routine) 04/21/2024 11:37 AM DATA WAREHOUSING SPECIALIST Breast pain from Last 3 Months or [...] and agrees with it. Electronically signed by: MD Yadira Watts 06/27/2024 11:25 AM CDT EXAMINATION: Magnetic resonance [...] lesions identified, considering differences in technique. T2/FLAIR [place] of Disease: Mild, less than 10 typical [...] contrast using the multiple sclerosis protocol. Scanner: [place] Field Strength: 3T Contrast information: None. COMPARISON: MRI brain dated 05/10/2022 FINDINGS: BRAIN: There are multiple foci of hyperintensity on FLAIR and T2-weighted images within the white matter. This includes periventricular, callosal, and cortical or juxtacortical lesions. New Brain T2 Lesions: No definite new lesions identified, considering differences in technique. T2/FLAIR [place]el of Disease: Mild, less than 10 typical [...] New T2 Lesions: None Dictated by: Nan Hallman, The radiology attending physician has personally reviewed this study, and had reviewed and/or edited this written report and agrees with it. Electronically signed by: Berto Jacob MD us Rolando Tineo MD [facility] [place] PROCEDURES Final Resu lt * (ABNORMAL) [...] BLOOD ORDERABLES Final Re sult [facility] [address] [id number] * Hepatic function panel (06/13/2024 1:26 PM CDT) Protein, Total 6.6 6.4 - 8.4 g/dL [...] MD LAB BLOOD ORDERABLES Final Re sult [facility] [address] [place] [address] * Diagnostic Mammogram Bilateral W Carmelo (04/21/2024 11:37 AM DATA WAREHOUSING SPECIALIST) Anatomical Region Laterality Modality Breast Bilateral Mammography 04/21/2024 11:4 3 AM DATA WAREHOUSING SPECIALIST Impressions 04/21/2024 2:24 PM DATA WAREHOUSING SPECIALIST No evidence of malignancy in EITHER breast. OVERALL FINAL ASSESSMENT: BI-RADS Category 2: Benign. RECOMMENDATION: Annual screening mammography is recommended. Dictated by: Mary Gardner MD The radiology attending physician has personally reviewed this study, and had reviewed and/or edited this written report and agrees with it. Electronically signed by: Danielle Alcaraz M.D. Narrative 04/21/2024 2:24 PM DATA WAREHOUSING SPECIALIST EXAMINATION: BILATERAL DIGITAL DIAGNOSTIC MAMMOGRAM INCLUDING CAD [...] it. Electronically signed by: Danielle Alcaraz M.D. Zo Petersen NP IMG MAMMO PROCEDURES Fi nal Result from Last 3 Months or Most Recently Relevant to Health Maintenance Insurance [employer] MEDICARE HMO [employer] CHOICE MEDICARE PPO [employer] CHOICE MEDICARE PPO Care Teams Victims Advocate Clerk/Specialist Relationship Specialty Start Date End Date Melba Garcia MD [address] [place] [address] PCP - General 04/24/08 Elizabeth Diamond NP [address] [place] [address] Nurse Practitioner Nurse Practitioner 05/30/21 Usha English NP [address] [place] [address] Nurse Practitioner Obstetrics and Gynecology 01/12/24
--- OUTSIDE RECORDS SUMMARY | 2024-08-23 10:05 | XMS_ITS | Data Portability ---
Author Organization [facility] Address [address] [place] [address] Care Team Providers Care Food And Nutrition Services Assistant Name Role Phone JAZMINE JIANG Primary Care Provider Assessment Encounter Date Assessment Date Assessment LastModified by Organization Details LastModified Time 12/23/2022 12/23/2022 Annual gynecological exam performed. Patient will come back in a year unless there are new symptoms. [email or web address] Not available 12/23/2022 15:20:36 01/12/2024 01/12/2024 Annual gynecological exam performed. Patient will come back in a year unless there are new symptoms. [email or web address] Not available 01/12/2024 12:20:43 Plan of Treatment Reminders Order Date Submit Date Provider Last Modified By Organization Details Last Modified Time Details Appointments [facility] 2024 11:45A CLAYTON Christensen Not available Not available Not available Lab None recorded. Referral breast surgery referral 2023 024 [facility], [address] [place] [address], [address], 07/19/2024 04:03:48 breast surgery referral - ATTN: ULICES REFERRING THIS PATIENT FOR ABNORMAL BREAST PAIN, STABLE 4MM CYST NEAR LEFT NIPPLE & BIRADS 2. *PLEASE CONTACT PATIENT SOON POSSIBLE FOR AN APPOINTME NT WITH ONE OF YOUR SPECIALIS TS* Attached to this referral are the patients demograph ics, most recent office visit notes, imaging & lab results. If you have any questions or require further informati on, please contact me at [phone]. Thank you, Sandra, Referrals [address], [facility] [place], [address], 09/03/2021 18:00:16 Procedures None recorded. Surgeries None recorded. Imaging MAMMO, screening , bilateral 2022 023 [email or web address] [facility], [address], [place], [address], 03/03/2023 14:06:38 MAMMO, diagnosti c, digital, bilateral 2021 022 [facility], [address], [place], [address], 05/17/2021 18:24:35 US, breast, unilatera l [address] [facility], [address], [place], [address], 09/04/2021 10:29:36 Medication Orders None recorded. 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 Not Available [facility] (Lab) [address], [place], [address], 12/26/2022 15:42:30 05/18/19 22 05/17/2021 MAMMO , diagn ostic , digit al, bilat eral No observ ation record ed. [facility] [address], [place], [address], 05/25/2021 00:38:21 06/04/19 23 06/02/2022 imagi ng/di agnos tic resul t No observ ation record ed. [address] [address] [address], [place], [address], 12/23/2022 15:32:04 Result Notes None recorded. Problems Name Problem SNOMED Code Status Onset Date Resolution Date Notes Provider Name and Address Organization Details Recorded Time Screenin g for malignan t neoplasm of cervix Completed 201205/09/2021 Screening for malignant neoplasms of the cervix;Re corded Elsewhere : No Locati on: [facility] So urce: EHR Chron ic: N Practic e ID: [id number] Bill able Time: 04:30:00 PM Shweta Edwards [facility] 2 11:17:[address] Concept Completed 201705/09/2021 Encntr for general adult medical exam w/o abnormal findings; Recorded Elsewhere : No Locati on: [facility] So urce: EHR Chron ic: N Practic e ID: 0001 Bill able Time: 04:30:00 PM Shweta Edwards [facility] 2 11:17:29 Speciali fidencio medical examinat ion Completed 201305/09/2021 Gynecolog ical Examinati on;Record ed Elsewhere : No Locati on: [facility] So urce: EHR Chron ic: Y Practic e ID: 0001 Bill able Time: 04:30:00 PM Shweta Edwards [facility] 2 11:17:29 Evaluati on finding [id number] Completed 201705/09/2021 Oth abn and inconclus pascual findings on dx imaging of breast;Re corded Elsewhere : No Locati on: [facility] So urce: EHR Chron ic: N Practic e ID: 0001 Bill able Time: 09:57:02 AM Shweta Edwards [facility] 2 11:17:28 Screenin g for malignan t neoplasm of rectum Completed 201105/09/2021 Screening for malignant neoplasms of the rectum;Re corded Elsewhere : No Locati on: [facility] So urce: EHR Chron ic: N Practic e ID: 0001 Bill able Time: 01:30:00 PM Shweta Edwards [facility] 2 11:17:29 Uterine prolapse [id number] Completed 201105/09/2021 Uterine prolapse without mention of vaginal wall prolapse; Recorded Elsewhere : No Locati on: [facility] So urce: EHR Chron ic: Y Practic e ID: [id number] Bill able Time: 01:30:00 PM Shweta ivey [facility] 2 11:17:28 Pre-surg fawn evaluati on Completed 201105/09/2021 Pre-opera tive examinati on, unspecifi ed;Practi ce ID: 0001 Shweta ivey [facility] 2 11:17:28 Prolapse of female genital organs [id number] Completed 201105/09/2021 Other specified genital prolapse; Practice ID: 0001 Shweta ivey [facility] 2 11:17:29 Postoper ative follow-u p visit Completed 201105/09/2021 Follow-up examinati on, following other surgery;P ractice ID: 0001 Shweta ivey [facility] [address] 11:17:[address] Concept Completed 201505/09/2021 Encntr for aml analyst exam (general) (routine) w/o abn findings; Practice ID: [id number] Shweta ivey [facility] 2 11:17:29 Body mass index 25-29 - overweig [id number] Completed 201705/09/2021 Body mass index (BMI) 25.0-25.9 , adult;Rec orded Elsewhere : No Locati on: [facility] So urce: EHR Chron ic: N Practic e ID: 0001 Bill able Time: 04:30:00 PM Shweta ivey [facility] 2 11:17:28 Problem Notes None recorded. Procedures Surgical History Date Name Laterality Status Provider Name and Address Organization Details Recorded Time 07/29/19 Date of Last Mammogram completed Heaven Roman [facility] 01/12/2024 12:29:28 12/24/19 23 Date of Last Pap Smear completed [facility] 12/23/2022 18:49:02 03/14/[address] [facility] 05/09/2021 11:29:49 03/14/19 22 Date of Last Colonoscopy completed [facility] 05/09/2021 11:29:49 03/14/19 22 Colonoscopy completed [facility] 05/28/2021 13:58:39 10/18/19 12 Total Hysterectomy completed [facility] 05/28/2021 13:28:16 02/16/18 97 Breast Biopsy completed [facility] 05/28/2021 13:28:05 02/16/18 91 Ovarian Cystectomy completed [facility] 05/28/2021 13:29:06 Imaging Results None recorded. Procedure Notes None recorded. Medical Equipment None [...] Elsewher e: No Locat ion: Christiano hall [facility] odify By: jjkline Curtis r DateTime : 10/22/19 12 04:30:00 PM Not Available Not Available Not Available Imodium A-D 2 mg tablet take 2 tablet by oral route after 1st loose stool and 1 tablet (2 mg) after each next bowel movement ; do not exceed 16 mg in 24hrs 12/23 completed Prescrib ed Elsewher e: Yes Loca tion: Dina xander [facility] odify By: espinoza merritt DateTime : 10/22/19 12 04:30:00 PM Not Available Not Available Not Available meclizine 25 mg tablet 01/11 completed Not Available Not Available Not Available Multiple Vitamins tablet take 1 tablet by oral route every day with food active Prescrib ed Elsewher e: Yes Loca tion: [facility] odify By: espinoza merritt DateTime : 10/22/19 12 04:30:00 PM Not Available Not Available Not Available diazepam 2 mg tablet active Not Available Not Available Not Available Xanax 0.25 mg tablet take 1 tablet by oral route 3 times every day 12/23 completed Prescrib ed Elsewher e: Yes Loca tion: [facility] odify By: candice thorpeunter DateTime : 06/26/19 18 04:30:00 PM Not Available Not Available Not Available rizatript an 10 mg disintegr ating tablet 01/11 completed Not Available Not Available Not Available buspirone 30 mg tablet take 1 tablet by oral route 2 times every day 05/09 completed Prescrib ed Elsewher e: Yes Loca tion: [facility] odify By: amtien Hall ncounter DateTime : 06/20/19 17 02:30:00 [...] Elsewher e: Yes Loca tion: Christiano hall [facility] odify By: candice gonzales DateTime : 10/22/19 12 04:30:00 PM Not [...] Elsewher e: Yes Loca tion: Christiano hall [facility] odify By: candice gonzales DateTime : 10/22/19 12 04:30:00 PM Not Available Not Available Not Available Jolivette 0.35 mg tablet take 1 tablet by oral route every day 07/29 completed Prescrib ed Elsewher e: No Locat ion: Christiano hall [facility] odify By: do xavier DateTime : 07/08/19 12 03:35:09 PM Not Available Not Available Not Available Abilify 5 mg tablet take 1 tablet by oral route every day 12/23 completed Prescrib ed Elsewher e: Yes Loca tion: Christiano hall [facility] odify By: candice gonzales DateTime : 06/26/19 18 04:30:00 PM Not Available Not Available Not Available Topamax 50 mg tablet take 1 tablet by oral route 2 times every day 12/23 completed Prescrib ed Elsewher e: Yes Loca [facility]ion: [facility] odify By: espinoza merritt DateTime : 10/22/19 [...] Elsewher e: Yes Loca tion: Christiano hall [facility] odify By: chaodical Encount er DateTime : 08/05/19 14 04:30:00 PM Not Available Not Available Not Available B-12 Plus 5,000 mcg-100 mcg sublingua l tablet active Not Available Not Available Not Available Calcium 500 + D (D3) active Not Available Not Available Not Available melatonin 5 mg capsule 12/23 completed Prescrib ed Elsewher e: Yes Loca tion: [facility]o hall [facility] odify By: candice gonzales DateTime : 06/20/19 17 02:30:00 PM Not Available Not Available Not Available Gilenya 0.5 mg capsule take 1 capsule by oral route every day 12/23 completed Prescrib ed Elsewher e: Yes Loca tion: Christiano hall [facility] odify By: candice thorpeunter DateTime : 06/20/19 17 02:30:00 PM Not Available Not Available Not Available Jackson 3 Fish Oil 684 mg-1,200 mg capsule,d elayed release 2017 active Prescrib ed Elsewher e: Yes Loca tion: Christiano hall [facility] odify By: candice gonzales DateTime : 06/26/19 18 04:30:00 PM Not Available Not Available Not Available James Jimenez 05/09 completed Not Available Not Available Not Available Vitamin B-12 1,000 mcg/mL oral drops active Prescrib ed Elsewher e: Yes Loca tion: Dina xander [facility] odify By: chaodical Encount er DateTime : 08/05/19 14 04:30:00 PM Not Available Not Available Not Available duloxetin e HCl (bulk) 100 % powder 05/09 completed Prescrib ed Elsewher e: Yes Loca [facility]ion: [facility] odify By: candice thorpeunter DateTime : 06/20/19 17 02:30:00 PM Not Available Not Available Not Available Womens Multivita min Hi Potency 05/09 completed Not Available Not Available Not Available Mayzent 0.25 mg tablet active Not Available Not Available Not Available Vitals Date Recorded Body height Body mass index (BMI) Body weight Systolic And Diastolic Provider Name and Address Organization Details Last Updated DateTime 05/09/2021 172.72 cm 21.5 kg/m2 74901.68 g 126/70 mm[Hg] Shweta [facility] 05/09/2021 11:29:29 Date Recorded Body height Body mass index (BMI) Body weight Systolic And Diastolic Provider Name and Address Organization Details Last Updated DateTime 05/28/2021 172.72 cm 21.6 kg/m2 48909.12 g 120/82 mm[Hg] [facility] 05/28/2021 13:22:19 Date Recorded Body height Body mass index (BMI) Body weight Systolic And Diastolic Provider Name and Address Organization Details Last Updated DateTime 12/23/2022 172.72 cm 21.6 kg/m2 86556.12 g 120/80 mm[Hg] [facility] 12/23/2022 15:21:50 Date Recorded Body height Body mass index (BMI) Body weight Systolic And Diastolic Provider Name and Address Organization Details Last Updated DateTime 01/12/2024 172.72 cm 25.5 kg/m2 39283.52 g 117/56 mm[Hg] Heaven Roman [facility] 01/12/2024 12:26:57 Social History Question Answer Notes LastModified by Organizat ion Details LastModified Time Tobacco Smoking Status Current Every Day Smoker [facility] 05/09/2021 11:33:33 Do You Have An Advance Directive? No Information n ot available 05/09/2021 Are You Blind Or Do [...] Or The Highest Degree You Have Received? [id number] Information not available 05/09/2021 Are There Any [...] PPD Information not available 05/09/2021 Do You Use Sunscreen Routinely? No Information not available 05/09/2021 How Many Years Have You Smoked Tobacco? 30 Information not available 05/09/2021 Have You Used IV Drugs? No Information not available 05/09/2021 Do You Have Difficulty Walking Or Climbing Stairs? No Information not available 05/09/2021 Sex: Unknown Functional Status Question Answer Note LastModified by Organizat ion Details LastModified Time Do you use any illicit or recreational drugs? Yes Information not available 05/09/2021 What is your level of alcohol consumption? None Information not available 05/09/2021 Are you able to walk? YESWOREST Information not available 05/09/2021 Are you able to care for yourself? Yes Information n ot available 05/09/2021 What is your occupation? Disabled Information not available 05/09/2021 Do you have difficulty dressing or bathing? No Information not available 05/09/2021 What is your exercise level? Occasional Information not available 05/09/2021 Mental Status Question Answer Note LastModified by Organization D etails LastModified Time Do you feel stressed (tense, restless, nervous, or anxious, or unable to sleep at night)? [id number] Information not available 05/09/2021 Family History Relationship Description Onset Age of [...] SNOMED-CT Code Diagnosis ICD10 Code Diagnosis Note [id number] Elizabeth Diamond [facility] [address],[facility] [place] [address] 05/09/2021 10:29:21 05/10/2021 15:21:04 Pain of breast 99792612 N64.4 N60.19 Z80.3 Will complete diagnostic imaging of breast(s) with targeted US for left breast.Sofiya frye complete [facility] cancer screen testing today at lab.Will contact with results Time spent in visit is a total of 15 mins with at least 50% of visit consisting of counseling and review of plan of care.Addit ional precaution beltran measures were taken to minimize potential exposure to the Covid-19 virus during this patient s visit, including available hand pullman car clerk upon arrive, temperatur e check and being asked a series of screening questions. All staff wore face coverings during this encounter, as well as provided additional cleaning and sanitizing of all surfaces, including countertop s, pens, chairs, door handles, light switches, etc, prior to and following the patient s visit. [id number] [facility] [address],[facility] [place] [address] 05/28/2021 12:55:55 05/28/2021 13:45:38 Pain of breast 02391397 N64.4 N60.19 Z80.3 Patient continues to have breast pain with palpation, wearing bras and pain that shoots through the areas found on her recent diag mammo/US where benign cysts are.We still question if these areas are the ones causing this aggravatio n in this breast on left side.She appreciate s the referral to breast specialist .Agrees to add Evening Hymera oil to her daily regimen to see if this might help in any way. If does not hear from printing specialist within 7 business days please contact office to check in.Still awaiting Genetic cancer screen by [facility]. Time spent in visit is a total of 15 mins with at least 50% of visit consisting of counseling and review of plan of care.Addit ional precaution beltran measures were taken to minimize potential exposure to the Covid-19 virus during this patient s visit, including available hand pullman car clerk upon arrive, temperatur e check and being asked a series of screening questions. All staff wore face coverings during this encounter, as well as provided additional cleaning and sanitizing of all surfaces, including countertop s, pens, chairs, door handles, light switches, etc, prior to and following the patient s visit. [id number] Elizabeth Diamond , [facility] [address] [address] 12/23/2022 14:52:54 12/23/2022 15:39:18 Gynecologic examination 36433551 Z01.419 Take Calcium with Vitamin D 12-1500mg daily. Do monthly self breast exams. It is advised to get annual flu shot in the fall and she could obtain at [facility] or [facility] care clinic. If you haven't received the Tdap [...] [facility] PCP UTD Screening mammography 24 650761 Z12.31 [id number] Usha EnglishCLAYTON [facility] [address] [address] 01/12/2024 12:04:02 01/12/2024 13:49:17 Gynecologic examination 71030279 Z01.419 WWEpostmen opausalPap - not indicatedS TI [...] estions have been answered. Pain of breast 53758703 N64.4 pain of left breast for many yearsmammo gram UTDrecomme nd pt be seen by breast specialist for consult again, referral placedsmok ing cessation encouraged , continue evening primrose oil Health Concerns Section Related Observation LastModified by Organization Detai ls LastModified Time None Recorded Concern Status LastModified by Organization Details LastModified Time None Recorded Advance Directives Directive N: Payers Insurance Date Sequence Insurance Name Policy Number Policy Obrien Covered Member ID Obrien Member ID Guarantor Name 01/12/2024 1 [employer] (HMO) Anuja Hoffman Essence [id number] Anuja Hoffman Essence 12/23/2022 2 [employer] (HMO) Anuja Essence [id number] Anuja Martinohuang 01/18/2024 1 [employer] (HMO) Anuja Martinohuang [id number] Anuja Martinohuang 12/20/2022 1 [employer] (MEDICARE REPLACEMENT/ ADVANTAGE - PPO) [id number] Anuja Lowry [id number] Anuja Lowry 12/20/2022 1 [employer] [id number] Anuja Lowry [id number] Anuja Lowry 12/20/2022 2 MEDICARE-DC (MEDICARE) Anuja Lowry [id number] Anuja Lowry Notes Date Note Type Note [...] pain; no malaise; no breast lump;sore nipples Elizabeth Diamond MOOKIE- [address], [place], [address], [facility] 05/09/2021 17:26:01 2 text/html Here today for r/p breast exam after recent imaging. Elizabeth Diamond MOOKIE- [address], [place], [address], [facility] 05/28/2021 13:42:11 3 text/html Annual Drapery Inspector Post-MenopausalReported bypatient.Menopausal Symptoms:no menopausal symptoms; normal vaginal [...] recent colonoscopy CLAYTON Crawford- [address], [place], [address], [facility] 12/23/2022 15:34:03 4 text/html Annual Drapery Inspector Post-MenopausalReported bypatient.Menopausal Symptoms:no menopausal symptoms; normal vaginal [...] % - osteopenia, dexa scheduledcolonoscopy CLAYTON Dempsey [address], [place], [address], [place] [facility] 01/12/2024 13:47:22 OBGyn Episode Ob Episode Information Episode Created Date Number of Fetuses Patient Bloodtype Patient rh Status Prepregnancy Weight lbs Domestic Partner Domestic Partner Phone Father Name Golf Course Equipment Operator Status 05/10/19 22 1 CLOSED Fetus Data First Name Last Name Admitted to NICU Weight (g) Sex Living Outcome Pediatric Complications Fetus ID Race Codes Race Delivery Type F Full Term 15019 Vaginal Delivery Nathen Calculation Initial Nathen Date [...] Domestic Partner Domestic Partner Phone Father Name Golf Course Equipment Operator Status 05/10/19 22 1 CLOSED Fetus Data First Name Last Name Admitted to NICU Weight (g) Sex Living Outcome Pediatric Complications Fetus ID Race Codes Race Delivery Type M Full Term 15173 Vaginal Delivery Nathen Calculation Initial Nathen Date [...]
--- OUTSIDE RECORDS SUMMARY | 2024-08-23 10:05 | XMS_ITS | Encounter Summary ---
Author Organization [facility] Address [address] [place] [address] Care Team Providers Care Siebel Solution Architect Name Role Phone Melba Garcia MD Primary Care Provider [phone] Reason for Visit * Diagnostic Imaging (Routine) - Closed Specialty Diagnoses / Procedures Referred By Kilo marion Referred To Contact Procedures Breast Imaging Diagnostic Outside Reference Yanira Maher NP Phone: tel: fax: Referral ID Status Reason Start Date Expiration Date Visits Re quested Visits Authorized [id number] Closed 06/03/2021 07/03/2022 1 1 Encounter Details Date Type Department Care Team (Late st Contact Info) Description 06/15/2018 Hospital Encounter [facility] [address] [place] [id number] Social History Tobacco Use Types Packs/Day [...] on file 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 [place] [address] 09/05/2024 8:15 AM CDT - 09/05/2024 9:45 AM CDT Surgery [facility] [address] [place] [address] Farrukh Campbell MD [address] [facility] [place] [address] RIGHT WRIST ARTHROSCOPY WITH POSSIBLE TRIANGULOFIBROCARTILAGE COMPLEX [...] Outside Reference (06/15/2018 12:00 AM CDT) Impressions RAD_MAMMO[facility] - 06/03/2021 11:15 AM CDT These images are for Reference purposes only and have not been reviewed by [facility]. There will be no report generated by a [facility]. Narrative [facility]MO[facility] - 06/03/2021 11:15 AM CDT EXAMINATION: Images For Reference Purposes Only us Yanira Maher X RAY SERVICE ENGINEER IMG MAMMO PROCEDURES Fin al Result [facility] documented in this encounter Visit Diagnoses Not on filedocumented in this encounter Care Teams Siebel Solution Architect Relationship Specialty Start Date End Date Melba Garcia MD [address] [place] [address] PCP - General 04/24/08 documented as of this encounter
--- OUTSIDE RECORDS SUMMARY | 2024-08-23 10:05 | XMS_ITS | Encounter Summary ---
Author Organization [facility] Healthcare Address [address] [place] [address] Care Team Providers Care Certified Procedural Coder Name Role Phone Melba Garcia MD Primary Care Provider [phone] Reason for Visit * Diagnostic Imaging (Routine) - Closed Specialty Diagnoses / Procedures Referred By Kilo marion Referred To Contact Procedures Breast Imaging Screening Outside Reference Yanira Maher NP Phone: tel: fax: Referral ID Status Reason Start Date Expiration Date Visits Re quested Visits Authorized [id number] Closed 06/03/2021 07/03/2022 1 1 Encounter Details Date Type Department Care Team (Late st Contact Info) Description 06/03/2018 Hospital Encounter 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 [address] [place] [phone] Farrukh Campbell MD [address] [facility] [place] [address] 09/05/2024 8:15 AM CDT - 09/05/2024 9:45 AM CDT Surgery [facility] [address] [place] [phone] Farrukh Campbell MD [address] [facility] [place] [address] RIGHT WRIST ARTHROSCOPY WITH POSSIBLE TRIANGULOFIBROCARTILAGE COMPLEX [...] Outside Reference (06/03/2018 12:00 AM CDT) Impressions RAD_MAMMO_[facility] - 06/03/2021 11:15 AM CDT These images are for Reference purposes only and have not been reviewed by [facility]. There will be no report generated by a [facility] Radiologist. Narrative [facility]_MAMMO_[facility] - 06/03/2021 11:15 AM CDT EXAMINATION: Images For Reference Purposes Only us Yanira Maher VALET ATTENDANT IMG MAMMO PROCEDURES Fin al Result [facility] documented in this encounter Visit Diagnoses Not on filedocumented in this encounter Care Teams Certified Procedural Coder Relationship Specialty Start Date End Date Melba Garcia MD [address] [place] [address] PCP - General 04/24/08 documented as of this encounter
--- OUTSIDE RECORDS SUMMARY | 2024-08-23 10:05 | XMS_ITS | Encounter Summary ---
Author Organization [facility] Healthcare Address [address] [place] [address] Care Team Providers Care Hatchery Man Name Role Phone Melba Garcia MD Primary Care Provider [phone] Reason for Visit * Diagnostic Imaging (Routine) - Closed Specialty Diagnoses / Procedures Referred By Kilo marion Referred To Contact Procedures Breast Imaging Screening Outside Reference Yanira Maher NP Phone: tel: fax: Referral ID Status Reason Start Date Expiration Date Visits Re quested Visits Authorized [id number] Closed 06/03/2021 07/03/2022 1 1 Encounter Details Date Type Department Care Team (Late st Contact Info) Description 08/08/2019 Hospital Encounter [facility] [address] [place] [id number] Social History Tobacco Use Types Packs/Day [...] on file 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 [place] [address] 09/05/2024 8:15 AM CDT - 09/05/2024 9:45 AM CDT Surgery [facility] [address] [place] [phone] Farrukh Campbell MD [address] [facility] [place] [address] RIGHT WRIST ARTHROSCOPY WITH POSSIBLE TRIANGULOFIBROCARTILAGE COMPLEX [...] only and have not been reviewed by [facility]. There will be no report generated by a [facility] Radiologist. 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
--- OUTSIDE RECORDS SUMMARY | 2024-08-23 10:05 | XMS_ITS | Patient Health Record ---
Author Organization [facility] Address [address] [place], [place] [id number] Care Team Providers Care Snuff Box Finisher Name Role Phone SHAY Geller Unavailable [phone] Reason For Referral No Information Plan Of Treatment No Information Insurance Providers Payer Name Payer Address Payer Phone Subscriber Number Group Number Insured Name Patient Relationship to Insured Coverage Start Date Coverage End Date [employer] [address] [place] [address] [id number] SOFÍA CASTLE Self - patient is the insured
== END 2024-08-23 10:01 | disposition home or self-care (01) ==
PROVIDERS: PCP Internal Medicine; Visit Provider Nurse Practitioner
DX: Z78.0 Asymptomatic menopausal state (principal); M85.852 Other specified disorders of bone density and structure, left thigh; M85.851 Other specified disorders of bone density and structure, right thigh
CPT/HCPCS: 77080